=== PATIENT | male | born 1945 | race Caucasian/White ===

== ENCOUNTER 2017-11-21 09:25 | Emergency (ER) | payer MEDICARE ==
[~2017-11-21 09:25] MED LIST: AMLO10TA8 PO; ASPI300S PR; FOLI5CAP; LISI30TA44 PO; MAGN250T9 PO; METO100T PO; PLAV75TA PO; PROT40TA PO; VARE1 PO
[2017-11-21 09:26] VITALS: BP 123/98; PULSE 89; RESP 14; TEMP 98.4; O2SAT 99
--- NOTE | 2017-11-21 09:54 | PD ---
HPI Chief Complaint: Edema Time Seen by Provider: 09:43 Travel History International Travel<30 days: No Contact w/Intl Traveler<30days: No Traveled to known affect area: No History of Present Illness HPI 72-year-old male presents to the emergency Department with complaint of left calf pain that started yesterday. Reports feeling pins and needles in his left lower leg. Has a stent in his left leg secondary to "bad circulation." He takes Plavix. Denies history of DVT/PE. Denies chest pain, shortness of breath , fevers, vomiting. Has not taken any medications or tried any treatments to alleviate his symptoms. Rates pain 2/10. Described as cramping. Worse in the morning when he first gets out of bed. Dr. Bravo is primary care provider. He doesn't have a parachute rigger. History of NV, hypertension, COPD, lung cancer. No known allergies. Has no other medical complaints. No other modifying factors or associated signs and symptoms. PFSH Past Medical History Arthritis: No Asthma: No Blood Disorders: No Heart Rhythm Problems: No Cancer: No Cardiac Catheterization: Yes Cardiovascular Problems: Yes (HTN, stents) High Cholesterol: Yes Chemotherapy: No Chest Pain: No Congestive Heart Failure: No COPD: No Cerebrovascular Accident: No Diabetes: No Diminished Hearing: No Endocrine: No GERD: No Genitourinary: No Hepatitis: No Hiatal Hernia: No Hypertension: Yes Immune Disorder: No Kidney Stones: No Musculoskeletal: No Neurologic: No Psychiatric: No Reproductive: No Respiratory: No Migraines: No Radiation Therapy: No Renal Failure: No Seizures: No Sickle Cell Disease: No Sleep Apnea: No Thyroid Disease: No Ulcer: No Past Surgical History Abdominal Surgery: Yes (INGUINAL HERNIA) AICD: No Appendectomy: Yes Arteriovenous Shunt: No Cardiac Surgery: Yes (CARDIAC STENTING) Coronary Artery Bypass Graft: No Ear Surgery: No Endocrine Surgery: No Eye Surgery: No Genitourinary Surgery: No Gynecologic Surgery: No Insulin Pump: No Joint Replacement: No Oral Surgery: No Pacemaker: No Thoracic Surgery: No Other Surgery: Yes (L LOWER LOBECTOMY) Social History Alcohol Use: Yes Tobacco Use: Yes (<1/2 PPD) Substance Use: No Allergies-Medications (Allergen,Severity, Reaction): Coded Allergies: naproxen (Unverified Allergy, Severe, LOW BP, HIVES, 06/11/17) Reported Meds & Prescriptions Reported Meds & Active Scripts Active Reported Metoprolol Tartrate 100 Mg Tab 100 Mg PO BID Omeprazole 40 Mg Cap 40 Mg PO DAILY Clopidogrel (Clopidogrel Bisulfate) 75 Mg Tab 75 Mg PO DAILY Lisinopril 30 Mg Tab 30 Mg PO DAILY Amlodipine-Atorvastatin 10-10 Mg Tab 1 Tab PO DAILY Review of Systems Except as stated in HPI: all other systems reviewed are Neg Physical Exam Narrative GENERAL: Well-nourished, well-developed male patient, in no acute distress SKIN: Warm and dry. HEAD: Atraumatic. Normocephalic. EYES: Pupils equal and round. No scleral icterus. No injection or drainage. ENT: Mucosa pink and moist. Airway patent. NECK: Trachea midline. CARDIOVASCULAR: Regular rate and rhythm. No murmur appreciated. RESPIRATORY: No accessory muscle use. Clear and equal to auscultation bilaterally. GASTROINTESTINAL: Flat. MUSCULOSKELETAL: Left lower extremity supple and non-tense with 1+ pedal pulse and sensory intact without erythema. Left lower leg appears edematous when compared to the right; nonpitting edema. Reproducible tenderness on palpation to the left posterior upper calf. No obvious deformities. No clubbing. No cyanosis. NEUROLOGICAL: Awake and alert. Oriented 3. No obvious cranial nerve deficits. Motor grossly within normal limits. Normal speech. PSYCHIATRIC: Appropriate mood and affect; insight and judgment normal. Data Data Last Documented VS Vital Signs Date Time Temp Pulse Resp B/P (MAP) Pulse Ox O2 Delivery O2 Flow Rate FiO2 11/21/17 09:49 Room Air 11/21/17 09:26 98.4 89 14 123/98 (106) 99 Orders Orders Us Leg Venous Doppler (11/21/17 ) Ed Discharge Order (11/21/17 11:32) [facility] Medical Decision Making Medical Screen Exam Complete: Yes Emergency Medical Condition: Yes Medical Record Reviewed: Yes Differential Diagnosis DVT, superficial vein thrombosis, leg cramp Narrative Course 72-year-old male with left calf pain and left lower leg edema. He has history of cardiac stents and a left leg stent. He is on Plavix. Denies history of DVT /PE. Denies chest pain, shortness of breath. 1129: Left leg ultrasound concludes No evidence of left lower extremity DVT. Dr. Herzog evaluated the patient and agrees with discharge. Instructed to followup with vascular surgeon. Instructed patient to follow up with primary care provider. Patient verbalizes understanding and agreement with treatment plan. Patient is medically cleared and stable for discharge. Discussed reasons to return to the emergency department. Patient agrees with treatment plan. The patients vital signs are stable and the patient is stable for outpatient follow-up and treatment. Patient discharged home, stable and in no acute distress. Diagnosis Primary Impression: Pain of left calf Referrals: Primary Care Physician Vascular Surgeon Patient Instructions: General Instructions, Leg Pain (ED) Additional Instructions: Tylenol as instructed and as needed for pain Elevate effected extremity Follow-up with primary care provider Follow-up with Return to the emergency department with symptoms Med/Other Pt SpecificInfo: No Change to Meds, No Meds Exist/No RX given Disposition: DISCHARGE HOME Condition: Stable Silvia Ace Nov 21, 2017 09:54
[2017-11-21] MEDS ORDERED: CLOP75TA PO (10:01)
[2017-11-21] MEDS ORDERED: AMLO1TAB34 PO (10:01)
[2017-11-21] MEDS ORDERED: LISI30TA4 PO (10:01)
[2017-11-21] MEDS ORDERED: OMEP40CA2 PO (10:01)
[2017-11-21] MEDS ORDERED: METO100T PO (10:01)
--- NOTE | 2017-11-21 11:22 | RADRPT ---
EXAM DATE/TIME: 11/21/2017 10:30 [place] COMPARISON: No previous studies available for comparison. INDICATIONS : Thrombosis. MEDICAL HISTORY : Hypercholesterolemia. Hypertension. CAD. GERD. MRSA. SURGICAL HISTORY : Appendectomy. Cardiac stents. Cardiac cath. Left lower lobectomy. ENCOUNTER: Initial ACUITY: 1 day PAIN SCORE: 0/10 LOCATION: Left TECHNIQUE: Venous ultrasound of the leg was performed from the inguinal ligament to the proximal calf. Real-neftali e, color Doppler and spectral tracing, compression and augmentation techniques were used. FINDINGS: There is normal compressibility of the deep venous system from the inguinal region to the proximal ca lf. No echogenic clot is seen in the lumen of the common femoral, femoral, popliteal, and posterior tibial veins. There is a normal response of the venous system to proximal and distal augmentation an d respiration. CONCLUSION: No evidence of left lower extremity DVT. Devin Richardson MD on November 21, 2017 at 11:19 Board Certified Radiologist. This report was verified electronically.
--- NOTE | 2017-11-21 11:39 | PD ---
Data Data Last Documented VS Vital Signs Date Time Temp Pulse Resp B/P (MAP) Pulse Ox O2 Delivery O2 Flow Rate FiO2 11/21/17 09:49 Room Air 11/21/17 09:26 98.4 89 14 123/98 (106) 99 Orders Orders Us Leg Venous Doppler (11/21/17 ) Ed Discharge Order (11/21/17 11:32) MDM Supervised Visit with VALENTINA: Yes Narrative Course The history, exam, and medical decision-making in the associated midlevel provider note were completed with my assistance. I reviewed and agree with the findings presented. I attest that I had a [id number] encounter with the patient on the same day, and personally performed and documented my assessment and findings in the medical record. *My assessment and Findings: This is a 72-year-old male who presents to the emergency department with pain and swelling in his left calf. He has a history of peripheral arterial disease and has had stents placed in that extremity in the past but today he has a 1+ pulse in the leg and has no evidence of acute limb ischemia, but evidence of chronic peripheral arterial disease which may be worsening. Ultrasound was negative for DVT. I think patient should follow up routinely with his vascular surgeon Dr. Thacker. I think he's safe for discharge. Diagnosis Primary Impression: Pain of left calf Referrals: Primary Care Physician Patient Instructions: General Instructions, Leg Pain (ED) Departure Forms: Tests/Procedures Additional Instruction: Tylenol as instructed and as needed for pain Elevate effected extremity Follow-up with primary care provider Follow-up with Return to the emergency department with symptoms Disposition: 01 DISCHARGE HOME Condition: Stable Latonia Herzog MD Nov 21, 2017 11:39
== END 2017-11-21 11:57 | disposition home or self-care (01) ==
LOC: NEPD 09:25
DX: M79.662 Pain in left lower leg (principal); E78.00 Pure hypercholesterolemia, unspecified; I10 Essential (primary) hypertension; I25.10 Atherosclerotic heart disease of native coronary artery without angina pectoris; I25.2 Old myocardial infarction; J44.9 Chronic obstructive pulmonary disease, unspecified; Z95.5 Presence of coronary angioplasty implant and graft; Z79.02 Long term (current) use of antithrombotics/antiplatelets
CPT/HCPCS: 93971; 99284

== ENCOUNTER 2018-07-02 11:13 | Inpatient (IN) ==
[~2018-07-02 11:13] MED LIST changes: -AMLO10TA8 PO; -ASPI300S PR; -FOLI5CAP; -LISI30TA44 PO; -MAGN250T9 PO; -METO100T PO; +Metoprolol Tartrate 25 MG Tablet PO SCH; -PLAV75TA PO; -PROT40TA PO; -VARE1 PO
[2018-07-02] MEDS ORDERED: Heparin 10,000 UNITS/10 ML Vial (for IV use) IV.PUSH ONE (11:24)
[2018-07-02] MEDS ORDERED: Sod Chloride 0.9% Inj 1,000 ML IV.SIG SCH (11:30)
--- NOTE | 2018-07-02 11:33 | ED ---
HPI General Chief complaint: STEMI Alert Stated complaint: cardiac complaint Time Seen by Provider: 07/02/18 11:30 History of Present Illness HPI narrative: patient is a 73 year old male history of myocardial infarction 2007 with stents presents to ER for evaluation of CP since last night. States has chronic LUQ abdominal pain from "spine problem" but last night started having sharp severe upper chest pain with SOB and dizziness. Continues to smoke. Has not had cardiology follow up since 2007. Symptoms moderate, started this morning, associated s/s and context as above. Related Data Home Medications Medication Instructions Recorded Confirmed Statin 07/02/18 amlodipine 10 mg PO DAILY 07/02/18 aspirin 500 mg PO BID 07/02/18 07/02/18 clopidogrel [Plavix] 75 mg PO DAILY 07/02/18 lisinopril 20 mg PO DAILY 07/02/18 metoprolol tartrate 50 mg PO BID 07/02/18 Allergies Allergy/AdvReac Type Severity Reaction Status Date / Time naproxen Allergy Severe LOW BP, Unverified 06/11/17 15:18 HIVES Review of Systems ROS: all other systems reviewed are negative [facility] Surgical History Surgical History H/O heart artery stent (Acute) H/O hernia repair (Acute) History of lobectomy of lung (Acute) Hx of cardiac cath (Acute) Social History Social History Substance History: No History of Abuse Smoking Status: Heavy tobacco smoker Tobacco Type: Cigarettes How Often Do You Have a Drink Containing Alcohol: Never Recent Travel in [facility] within the Last 8 Weeks: No Recent Out of Country Travel within the Last 8 Weeks: No Exam Narrative Exam Narrative: GENERAL: WD/WN in nad. SKIN: Focused skin assessment warm/dry. HEAD: Atraumatic. Normocephalic. EYES: Pupils equal and round. No scleral icterus. No injection or drainage. ENT: No nasal bleeding or discharge. Mucous membranes pink and moist. NECK: Trachea midline. No JVD. CARDIOVASCULAR: Regular rate and rhythm. No murmur appreciated. NO MGR, 2+ bilaterally equal pulses in all four extremities. RESPIRATORY: No accessory muscle use. Clear to auscultation. Breath sounds equal bilaterally. GASTROINTESTINAL: Abdomen soft, non-tender, nondistended. Hepatic and splenic margins not palpable. MUSCULOSKELETAL: No obvious deformities. No clubbing. No cyanosis. No edema. NEUROLOGICAL: Awake and alert. No obvious cranial nerve deficits. Motor grossly within normal limits. Normal speech. PSYCHIATRIC: Appropriate mood and affect; insight and judgment normal. Course Initial Documented Vital Signs Pulse Oximetry 100 07/02/18 11:22 Last Documented Vital Signs Temperature 98.7 F 07/02/18 11:24 Pulse Rate 63 07/02/18 11:40 Respiratory Rate 16 07/02/18 11:40 Blood Pressure 154/78 H 07/02/18 11:24 Pulse Oximetry 100 07/02/18 11:40 Critical Care Time Critical Care Time: Yes Total Critical Care Time: 35 Attestation: Aggregate critical care time was 35 minutes. Time to perform other separately billable procedures was not included in the critical care time. My time did not include minutes spent treating any other patients simultaneously or on activities that did not directly contribute to the patient's treatment. The services I provided to this patient were to treat and/or prevent clinically significant deterioration that could result in: , disability, organ failure I provided critical care services requiring my management, as noted below: Chart data review, documentation time, medication orders and management, vital sign assessments/reviewing monitor data, ordering and reviewing lab tests, ordering and interpreting/reviewing x-rays and diagnostic studies, care of the patient and discussion of the patient with the admitting physicians. Medical Decision Making MDM Narrative Medical decision making narrative: Patient roomed in the ER, patient EKG shows ST elevation in V1-2, T wave inversions in V4-v6. He has had chronic LUQ abdominal pain and now left sided chest pain. Patient STEMI alert (1115), discussed with Dr. Zepeda ([id number]) who accepts. Patient NOT given aspirin, states he has allergy. He is given nitroglycerin and the CP is improving but LUQ abdominal pain worsening. Patient had US of abdomen cursory at bedside by me, no evidence of free fluid in the abdomen and aorta is grossly normal in caliber. Heparin 5000u IV given x1. Patient to laboratory worker by EMS transfer at 1151a. Medical Screen Exam Complete: Yes Emergency Medical Condition: Yes Lab Data Result diagrams: 07/02/18 11:20 07/02/18 11:20 Lab Results 07/02/18 07/02/18 07/02/18 Range/Units 11:20 11:20 11:20 CBC w Diff Auto diff final WBC 8.6 (4.0-11.0) th/mm3 RBC 5.09 (4.50-5.90) mil/mm3 Hgb 15.1 (13.0-17.0) gm/dL Hct 44.0 (39.0-51.0) % MCV 86.6 (80.0-100.0) fL MCH 29.8 (27.0-34.0) pg MCHC 34.4 (32.0-36.0) % RDW 13.8 (11.6-17.2) % Plt Count 201 (150-450) th/mm3 MPV 10.9 (7.0-11.0) fL Neut % (Auto) 77.0 H (16.0-70.0) % Lymph % (Auto) 15.5 (9.0-44.0) % Sandoval % (Auto) 5.3 (0.0-8.0) % Eos % (Auto) 1.2 (0.0-4.0) % Baso % (Auto) 1.0 (0.0-2.0) % Neut # (Auto) 6.6 (1.8-7.7) th/mm3 Lymph # (Auto) 1.3 (1.0-4.8) th/mm3 Sandoval # (Auto) 0.5 (0.0-0.9) th/mm3 Eos # (Auto) 0.1 (0.0-0.4) th/mm3 Baso # (Auto) 0.1 (0.0-0.2) th/mm3 WBC Differential . Differential Comment . PT 10.8 (9.8-11.6) sec INR 1.1 Ratio APTT 26.0 (24.3-30.1) sec Sodium 140 (136-145) meq/L Potassium 3.7 (3.5-5.1) meq/L Chloride 105 (98-107) meq/L Carbon Dioxide 25.0 (21.0-32.0) meq/L Anion Gap 10 (5-15) meq/L BUN 16 (7-18) mg/dL Creatinine 1.30 (0.60-1.30) mg/dL Estimated GFR 54 L (>89) mL/min Random Glucose 137 H (74-106) mg/dL Calcium 9.0 (8.5-10.1) mg/dL Magnesium 1.9 (1.5-2.5) mg/dL Total Creatine Kinase 75 (39-308) U/L Troponin I 0.02 (0.02-0.05) ng/mL B-Natriuretic Peptide (0-100) pg/mL 07/02/18 Range/Units 11:20 CBC w Diff WBC (4.0-11.0) th/mm3 RBC (4.50-5.90) mil/mm3 Hgb (13.0-17.0) gm/dL Hct (39.0-51.0) % MCV (80.0-100.0) fL MCH (27.0-34.0) pg MCHC (32.0-36.0) % RDW (11.6-17.2) % Plt Count (150-450) th/mm3 MPV (7.0-11.0) fL Neut % (Auto) (16.0-70.0) % Lymph % (Auto) (9.0-44.0) % Sandoval % (Auto) (0.0-8.0) % Eos % (Auto) (0.0-4.0) % Baso % (Auto) (0.0-2.0) % Neut # (Auto) (1.8-7.7) th/mm3 Lymph # (Auto) (1.0-4.8) th/mm3 Sandoval # (Auto) (0.0-0.9) th/mm3 Eos # (Auto) (0.0-0.4) th/mm3 Baso # (Auto) (0.0-0.2) th/mm3 WBC Differential Differential Comment PT (9.8-11.6) sec INR Ratio APTT (24.3-30.1) sec Sodium (136-145) meq/L Potassium (3.5-5.1) meq/L Chloride (98-107) meq/L Carbon Dioxide (21.0-32.0) meq/L Anion Gap (5-15) meq/L BUN (7-18) mg/dL Creatinine (0.60-1.30) mg/dL Estimated GFR (>89) mL/min Random Glucose (74-106) mg/dL Calcium (8.5-10.1) mg/dL Magnesium (1.5-2.5) mg/dL Total Creatine Kinase (39-308) U/L Troponin I (0.02-0.05) ng/mL B-Natriuretic Peptide 61 (0-100) pg/mL Imaging Data Radiologist's impression: Chest X-Ray 07/02/18 11:22 CONCLUSION: No acute cardiopulmonary disease. Discharge Plan Discharge Disposition Patient Disposition: 02 Transfer To [facility] Discharge Details Diagnosis: ST elevation (STEMI) myocardial infarction Physicians Team ED Provider: Golden Kim Primary Care Provider: UNKNOWN, Rxs /Orders / Referrals /Forms Prescriptions: No Action lisinopril 20 mg Tablet 20 mg PO DAILY RF: 0 clopidogrel [Plavix] 75 mg Tablet 75 mg PO DAILY RF: 0 amlodipine 10 mg Tablet 10 mg PO DAILY RF: 0 metoprolol tartrate 50 mg Tablet 50 mg PO BID RF: 0 Statin RF: 0 aspirin 500 mg Tablet 500 mg PO BID RF: 0 Discharge Instructions Patient Printed Instructions: Chest Pain (ED) Status ED Status: With Doctor
[2018-07-02 11:37] LABS: Baso # (Auto) 0.1 th/mm3 (0.0-0.2); Eos # (Auto) 0.1 th/mm3 (0.0-0.4); Eos % (Auto) 1.2 % (0.0-4.0); Hemoglobin 15.1 gm/dL (13.0-17.0); Lymph # (Auto) 1.3 th/mm3 (1.0-4.8); Lymph % (Auto) 15.5 % (9.0-44.0); Mean Corpuscular HGB Conc 34.4 % (32.0-36.0); Mean Corpuscular Hemoglobin 29.8 pg (27.0-34.0); Mean Corpuscular Volume 86.6 fL (80.0-100.0); Mean Platelet Volume 10.9 fL (7.0-11.0); Mono # (Auto) 0.5 th/mm3 (0.0-0.9); Mono % (Auto) 5.3 % (0.0-8.0); Neut # (Auto) 6.6 th/mm3 (1.8-7.7); Platelet Count 201 th/mm3 (150-450); Red Blood Count 5.09 mil/mm3 (4.50-5.90); Red Cell Distribution Width 13.8 % (11.6-17.2); White Blood Count 8.6 th/mm3 (4.0-11.0)
--- NOTE | 2018-07-02 11:39 | XR ---
EXAM DATE: 07/02/2018 11:31 AM EDT AGE/SEX: 73 years / Male INDICATIONS: Stemi Alert. Chest pain CLINICAL DATA: This is the patient's initial encounter. Patient reports that signs and symptoms have been present for 1 day and indicates a pain score of 5/10. MEDICAL/SURGICAL HISTORY: Hypertension. Gastroesophageal reflux disease. CAD Appendectomy. Ca rdiac stent. Left lobectomy COMPARISON: [facility] [place], CHEST SINGLE AP, 03/05/2015. . FINDINGS: A single AP view of the chest demonstrates the lungs to be symmetrically aerated without evidence of mass, infiltrate or effusion. The heart is normal in size. No pulmonary vascular engorgement. The aor ta is tortuous. A scoliotic thoracic spine.. CONCLUSION: No acute cardiopulmonary disease. Electronically signed by: Jerry Christianson MD 07/02/2018 11:38 AM EDT
[2018-07-02 11:49] LABS: Magnesium 1.9 mg/dL (1.5-2.5)
[2018-07-02 11:50] LABS: INR 1.1 Ratio; Prothrombin Time 10.8 sec (9.8-11.6)
[2018-07-02 11:57] LABS: Troponin I 0.02 ng/mL (0.02-0.05)
[2018-07-02 12:08] LABS: Potassium 3.7 meq/L (3.5-5.1)
[2018-07-02] MEDS ORDERED: fentaNYL Citrate Inj 100 MCG/2 ML Ampul ONE (12:26)
--- NOTE | 2018-07-02 13:20 | MR ---
cc: Agustin Zepeda MD DATE: 07/02/2018 INDICATIONS FOR PROCEDURE: Acute coronary syndrome, coronary artery disease, multiple cardiac risk factors. DETAILS OF PROCEDURE: The patient was brought to the cardiac catheterization laboratory, prepped and draped the usual sterile fashion, 10 mL of 1% lidocaine was used for local anesthetic to the right common femoral artery. A 4-Polish sheath was placed in right common femoral artery. Note, the right common iliac, external iliac, common femoral system was heavily calcified fluoroscopically. I needed to use a 4-Polish JR4 diagnostic catheter to steer the 0.035 J-tipped wire into the common iliac artery and into the distal aorta. All further catheter exchanges were done over the wire, 4-Polish JR4 and JL5 catheters were used to perform left and right coronary angiography, left ventriculography. FINDINGS: LV pressure is 115/6-8, EF 65%. The right coronary artery is large and dominant, has a slight wells's crook in the proximal segment, very tortuous in the proximal mid segment. The proximal segment has a 50% stenosis. Proximal mid segment beyond the wells's crook has a 40% stenosis. There is a long, 90%, stenosis in the mid segment extending down into the distal segment. The right PDA has a long ostial proximal 60% stenosis. Reference vessel diameter of 3.25 mm, extends out to the apex. Right posterolateral artery has no significant disease angiographically, has a bifurcation in the mid to distal segment. Left main coronary artery is heavily fibrocalcific fluoroscopically, mild tapering in the distal segment up to 20% angiographically. LAD is heavily calcified in the proximal mid segment fluoroscopically. There is an ostial proximal 75-80% stenosis. The vessel was occluded after the first diagonal artery with [id number] bridging collaterals to the mid to distal LAD. The LAD is nontransapical. Reference vessel diameter in the mid to distal segment 2.25-2.5 mm tapering to about 2 mm to 1.5 mm in the very distal segment. First diagonal artery is a medium to large size vessel, reference vessel diameter in the proximal segment 2.75 mm, long 95% proximal stenosis. Left circumflex vessel has moderate diffuse disease in the its proximal mid segment, up to 60% angiographically. The first obtuse marginal vessel has a proximal 75-80% stenosis. Reference vessel diameter 3.5 mm. There may be an actual bifurcation of the proximal segment with a stump at the more lateral branch. The more medial branch is a 3.0 mm reference vessel diameter vessel, very tortuous, with a 60% mid stenosis. The vessel approached the apex. The remainder of the AV groove left circumflex vessel is a small vessel, reference vessel diameter 2.25 mm, decreasing to about 1 mm in the mid to distal segment with severe diffuse disease up to 95% supplies a small distal posterolateral artery, which is 1 mm in diameter. CONCLUSION: 1. Severe 3-vessel coronary artery disease in a right dominant system as detailed above. Preserved left ventricular systolic function, ejection fraction 75%. 2. I have strongly advised the patient to stop smoking. 3. I have reviewed the films and discussed the case with Dr. Lizy Read, who agrees that the patient needs CABG. We will get preop carotid ultrasound, 2-D echo, treat lipids, NCEP guidelines. Start JACKI inhibitor, beta blockers as clinically and hemodynamically tolerated. Continue aspirin 81 mg daily. MD PHONG Farias/lesley , 12:53 PM , 01:02 PM
--- NOTE | 2018-07-02 13:26 | MB ---
cc: Agustin Zepeda MD DATE: 07/02/2018 HISTORY OF PRESENT ILLNESS: Karie is a very pleasant 73-year-old gentleman with history of coronary artery disease status post NE and stent in 2007. He does smoke. Developed chest pain yesterday, presented to the [place] ER today. He was attended by Dr. Kim. Dr. Kim reviewed the patient's EKG and called a STEMI alert. 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 At the time of arrival to incinerator plant laborer, the patient had no chest pain. He was treated with aspirin and heparin in the ER at [place]. Otherwise, denies any fever, chills, cough, PND, orthopnea, syncope or dizziness. PAST MEDICAL HISTORY: As per history of present illness. He has a "spine problem." PAST SURGICAL HISTORY: Status post hernia repair, history of lobectomy of the lung. SOCIAL HISTORY: He admits to heavy tobacco use. Denies alcohol use. ALLERGIES: NAPROXEN. MEDICATIONS: He did receive aspirin and heparin in [place] ER. PHYSICAL EXAMINATION: VITAL SIGNS: Blood pressure 154/78, pulse 68, respiratory rate 18, temperature 98.7 sat 100% on 2 liters nasal cannula. GENERAL: He is alert and oriented x3; in no acute distress. NECK: Supple. No JVD. No bruit. CARDIOVASCULAR: S1, S2; no murmurs, rubs or gallops; LUNGS: Clear to auscultation bilaterally. ABDOMEN: Soft, nontender, nondistended with positive bowel sounds. EXTREMITIES: No clubbing, cyanosis, or edema. LABORATORY DATA: White count is 8.6, hemoglobin 15.1, hematocrit 44.0, platelet count is 201. INR is 1.1. Sodium 140, potassium 3.7, chloride 105, bicarbonate 25, BUN 16, creatinine 1.30, glucose 137. BNP 61. Troponin 0.02. CK 75. INR is 1.1. IMAGING: Chest x-ray: No acute cardiopulmonary disease. DIAGNOSTIC DATA: EKG shows normal sinus rhythm at 65 beats per minute with anteroseptal Q-waves, T-wave inversion slightly symmetric V4, V5, V6, also lead I and aVL. DIAGNOSES: 1. Unstable angina. 2. Acute coronary syndrome. 3. Coronary artery disease. 4. Tobacco abuse. 5. Hyperglycemia. DISCUSSION: A STEMI alert has already been called. On my review, it appears that the patient has unstable angina. However, he was on the table and given his multiple risk factors and high pretest probability for significant coronary artery disease, I do think is medically necessary to proceed. In addition, he has [place] Cardi[employer] Class IV angina; therefore I will proceed with left heart catheterization. Further recommendations based on the details of his left heart catheterization. I have strongly advised the patient to stop smoking. We will also need to continue him on aspirin 81 mg daily, treat lipids by NCEP guidelines, treat him with beta blockers and JACKI inhibitors as clinically and hemodynamically tolerated. MD PHONG Farias/chapis , 12:59 PM , 01:07 PM
[2018-07-02] MEDS ORDERED: Insulin Regular (For Infusion) 100 UNIT in Sodium Chlor 0.9% Inj 99 ML IV.CONT PRN ×2 (13:52→14:27)
[2018-07-02] MEDS ORDERED: Dextrose 50% in Water 50 ML Vial IV.PUSH PRN ×2 (13:52→14:27)
[2018-07-02] MEDS ORDERED: Chlorhexidine 4% Topical 120 APPLIC/120 ML Bottle TOPICAL SCH (14:00)
[2018-07-02] MEDS ORDERED: ceFAZolin Inj 2,000 MG in Sodium Chlor 0.9% Inj 80 ML IV.SIG SCH ×2 (14:00→15:00)
[2018-07-02] MEDS ORDERED: Sodium Chlor 0.9% Inj 77.5 ML, Papaverine Inj 60 MG, Nitroglycerin Inj 100 MCG, dilTIAZ... IRRIGATION SCH ×6 (14:00→14:15)
[2018-07-02] MEDS ORDERED: Sodium Chloride 0.9% Irr Bot 500 ML, ceFAZolin Inj 500 MG IRRIGATION SCH ×2 (14:00)
[2018-07-02] MEDS ORDERED: Metoprolol Tartrate 25 MG Tablet PO SCH (14:15)
[2018-07-02 15:22] LABS: Baso % (Auto) 0.6 % (0.0-2.0); Eos # (Auto) 0.1 th/mm3 (0.0-0.4); Eos % (Auto) 1.6 % (0.0-4.0); Hematocrit 43.9 % (39.0-51.0); Hemoglobin 14.8 gm/dL (13.0-17.0); Lymph # (Auto) 1.5 th/mm3 (1.0-4.8); Lymph % (Auto) 17.7 % (9.0-44.0); Mean Corpuscular HGB Conc 33.7 % (32.0-36.0); Mean Corpuscular Hemoglobin 29.5 pg (27.0-34.0); Mean Corpuscular Volume 87.5 fL (80.0-100.0); Mean Platelet Volume 10.1 fL (7.0-11.0); Mono # (Auto) 0.6 th/mm3 (0.0-0.9); Mono % (Auto) 7.1 % (0.0-8.0); Neut # (Auto) 6.2 th/mm3 (1.8-7.7); Platelet Count 158 th/mm3 (150-450); Red Blood Count 5.02 mil/mm3 (4.50-5.90); White Blood Count 8.4 th/mm3 (4.0-11.0)
[2018-07-02 15:30] LABS: Activated Partial Thrombo Time 27.5 sec (24.3-30.1); INR 1.1 Ratio; Prothrombin Time 10.9 sec (9.8-11.6)
[2018-07-02 15:41] LABS: Alanine Aminotransferase 13 U/L (12-78); Albumin 3.5 g/dL (3.4-5.0); Anion Gap 9 meq/L (5-15); Aspartate Aminotransferase 9 U/L (15-37); Blood Urea Nitrogen 15 mg/dL (7-18); Calcium 8.5 mg/dL (8.5-10.1); Carbon Dioxide 27.4 meq/L (21.0-32.0); Chloride 108 meq/L (98-107); Glomerular Filtration Rate 57 mL/min (>89); Glucose,Random 92 mg/dL (74-106); Potassium 3.7 meq/L (3.5-5.1); Sodium 144 meq/L (136-145)
[2018-07-02 15:43] LABS: Alkaline Phosphatase 78 U/L (45-117); Total Protein 6.4 g/dL (6.4-8.2)
--- NOTE | 2018-07-02 16:01 | P.PNCV ---
- Note Subjective/Hospital Course: Risk Model and Variables - STS Adult Cardiac Surgery Database Version 2.81 RISK SCORES About the STS Risk Calculator Procedure: CAB Only Risk of Mortality: 3.084% Morbidity or Mortality: 20.224% Long Length of Stay: 8.679% Short Length of Stay: 34.019% Permanent Stroke: 1.097% Prolonged Ventilation: 13.87% DSW Infection: 0.518% Renal Failure: 5.772% Reoperation: 7.443% Objective: Vital Signs - 24 hr 07/02/18 11:22 07/02/18 11:24 07/02/18 11:40 Temperature 98.7 F Pulse Rate 68 63 Respiratory Rate 18 16 Blood Pressure 154/78 H Pulse Oximetry 100 100 100 Labs: Laboratory Results - last 12 hr 07/02/18 07/02/18 07/02/18 11:20 11:20 11:20 CBC w Diff Auto diff final WBC 8.6 RBC 5.09 Hgb 15.1 Hct 44.0 MCV 86.6 MCH 29.8 MCHC 34.4 RDW 13.8 Plt Count 201 MPV 10.9 Neut % (Auto) 77.0 H Lymph % (Auto) 15.5 Keith % (Auto) 5.3 Eos % (Auto) 1.2 Baso % (Auto) 1.0 Neut # (Auto) 6.6 Lymph # (Auto) 1.3 Keith # (Auto) 0.5 Eos # (Auto) 0.1 Baso # (Auto) 0.1 WBC Differential . Differential Comment . PT 10.8 INR 1.1 APTT 26.0 Sodium 140 Potassium 3.7 Chloride 105 Carbon Dioxide 25.0 Anion Gap 10 BUN 16 Creatinine 1.30 Estimated GFR 54 L Random Glucose 137 H Calcium 9.0 Magnesium 1.9 Total Bilirubin AST ALT Alkaline Phosphatase Total Creatine Kinase 75 Troponin I 0.02 B-Natriuretic Peptide Total Protein Albumin 07/02/18 07/02/18 07/02/18 11:20 15:03 15:03 CBC w Diff WBC 8.4 RBC 5.02 Hgb 14.8 Hct 43.9 MCV 87.5 MCH 29.5 MCHC 33.7 RDW 14.0 Plt Count 158 MPV 10.1 Neut % (Auto) 73.0 H Lymph % (Auto) 17.7 Keith % (Auto) 7.1 Eos % (Auto) 1.6 Baso % (Auto) 0.6 Neut # (Auto) 6.2 Lymph # (Auto) 1.5 Keith # (Auto) 0.6 Eos # (Auto) 0.1 Baso # (Auto) 0.0 WBC Differential . Differential Comment Auto diff final PT 10.9 INR 1.1 APTT 27.5 Sodium Potassium Chloride Carbon Dioxide Anion Gap BUN Creatinine Estimated GFR Random Glucose Calcium Magnesium Total Bilirubin AST ALT Alkaline Phosphatase Total Creatine Kinase Troponin I B-Natriuretic Peptide 61 Total Protein Albumin 07/02/18 15:03 CBC w Diff WBC RBC Hgb Hct MCV MCH MCHC RDW Plt Count MPV Neut % (Auto) Lymph % (Auto) Keith % (Auto) Eos % (Auto) Baso % (Auto) Neut # (Auto) Lymph # (Auto) Keith # (Auto) Eos # (Auto) Baso # (Auto) WBC Differential Differential Comment PT INR APTT Sodium 144 Potassium 3.7 Chloride 108 H Carbon Dioxide 27.4 Anion Gap 9 BUN 15 Creatinine 1.24 Estimated GFR 57 L Random Glucose 92 Calcium 8.5 Magnesium Total Bilirubin 0.5 AST 9 L ALT 13 Alkaline Phosphatase 78 Total Creatine Kinase Troponin I B-Natriuretic Peptide Total Protein 6.4 Albumin 3.5 Result Diagrams: 07/02/18 15:03 07/02/18 15:03
--- NOTE | 2018-07-02 16:09 | P.CON ---
History of Present Illness Service: Cardiothoracic surgery Consult date: 07/02/18 Reason for Consult: Coronary artery disease Primary Care Provider: UNKNOWN Chief Complaint: Flank pain History of Present Illness: 73-year-old gentleman with a known history of coronary artery disease status post previous acute myocardial infarction in 2007 at which time he underwent PCI with stenting, who now presents with progressive symptoms of left upper quadrant abdominal pain with associated substernal chest pressure. Patient was seen in the emergency department and evaluated with further workup including EKG and enzymes and subsequently underwent a coronary angiogram today which revealed significant three-vessel coronary artery disease with heavily calcified coronary vessels. I am now be considered for surgical vasculature therapy. At the present time he remains pain-free, hemodynamically stable, with no evidence of ongoing ischemia. Review of Systems All other systems reviewed negative except as stated in HPI [facility] - History History Provided By: Patient - Medical History Medical History: Medical History (Last Updated 07/02/18 @ 16:04 by Estefanía Bauer MD) Lung cancer (Acute) HTN (hypertension) (Acute) - Surgical History Surgical History: Surgical History (Last Updated 07/02/18 @ 11:23 by Evangelist Gant RN) H/O heart artery stent H/O hernia repair History of lobectomy of lung Hx of cardiac cath - Tobacco History Tobacco Use In Past 30 Days: Yes Smoking Status: Heavy tobacco smoker Tobacco Type: Cigarettes - Alcohol History How Often Do You Have a Drink Containing Alcohol: Never - Substance Use History Substance History: No History of Abuse - Travel History Recent Travel in the [place] Within the Last 8 Weeks: No Recent Travel Out of the Country Within the Last 8 Weeks: No - Immunization History Tetanus Immunization: Unsure Hx Influenza Vaccine This Season: No Medications and Allergies Active Medications: Active Medications Chlorhexidine Gluconate (Hibiclens 4% Topical) 1 applicatio TOPICAL [employer] SHAHRAM Stop: 07/08/18 13:52 Sodium Chloride 77.5 ml/Papaverine HCl 60 mg/Nitroglycerin 100 mcg/Diltiazem HCl 100 mg 0 ml IRRIGATION [employer] SHAHRAM Stop: 07/08/18 13:52 Sodium Chloride 500 ml/ (Cefazolin Sodium 500 mg) 0 ml IRRIGATION [employer] CHECKER [facility] Stop: 07/08/18 13:53 Dextrose (D50w Vial) 50 ml IV.PUSH UNSCH PRN PRN Reason: PER HYPOGLYCEMIA PROTOCOL Sodium Chloride (Ns Inj) 1,000 mls @ 30 mls/hr IV.SIG .Q24H [facility] Stop: 07/03/18 11:29 Last Admin: 07/02/18 11:28 Dose: 30 mls/hr Cefazolin Sodium 2,000 mg/ (Sodium Chloride) 100 mls @ 200 mls/hr IV.SIG [employer] [facility] Stop: 07/08/18 13:53 Insulin Human Regular 100 unit (/ Sodium Chloride) 100 mls @ 3 mls/hr IV.CONT TITRATE PRN; Protocol PRN Reason: See Protocol Metoprolol Tartrate (Lopressor) 12.5 mg PO [employer] [facility] Stop: 07/08/18 13:53 Miscellaneous (Pill Splitter) 1 each OTHER UNSCH PRN PRN Reason: PILL SPLITTING Mupirocin (Bactroban 2% Nasal Oint) 1 applicatio EACH NARE BID [facility] Stop: 07/06/18 13:53 Sodium Chloride (Ns Flush) 2 ml IV.FLUSH PRN PRN PRN Reason: FLUSH AFTER USING IV ACCESS Sodium Chloride (Ns Flush) 2 ml IV.FLUSH BID SHAHRAM Sodium Chloride (Ns Flush) 2 ml IV.FLUSH PRN PRN PRN Reason: FLUSH AFTER USING IV ACCESS Sodium Chloride (Ns Flush) 2 ml IV.FLUSH BID SHAHRAM Sodium Chloride (Ns Flush) 2 ml IV.FLUSH PRN PRN PRN Reason: FLUSH AFTER USING IV ACCESS Allergies Allergy/AdvReac Type Severity Reaction Status Date / Time naproxen Allergy Severe LOW BP, Unverified 06/11/17 15:18 HIVES Home Medications Medication Instructions Recorded Confirmed Type Statin 07/02/18 History amlodipine 10 mg PO DAILY 07/02/18 History aspirin 500 mg PO BID 07/02/18 07/02/18 History clopidogrel [Plavix] 75 mg PO DAILY 07/02/18 History lisinopril 20 mg PO DAILY 07/02/18 History metoprolol tartrate 50 mg PO BID 07/02/18 History Physical Exam Vital signs: Vital Signs 07/02/18 11:22 07/02/18 11:24 07/02/18 11:40 Temperature 98.7 F Pulse Rate 68 63 Respiratory Rate 18 16 Blood Pressure 154/78 H Pulse Oximetry 100 100 100 Intake & Output 07/01/18 07/02/18 07/02/18 18:59 06:59 18:59 Weight 72.688 kg - Constitutional no acute distress - Routine HEENT Exam Head: Present: normocephalic, atraumatic Eye: Present: EOMI, PERRL ENT: Present: mucous membranes moist - Routine Neck Exam Present: supple, full ROM. Absent: JVD, carotid bruit - Routine Respiratory Exam Present: CTA bilaterally. Absent: accessory muscle use - Routine Cardiovascular Exam Present: RRR, S1, S2. Absent: murmur, gallop, rubs - Routine Abdominal Exam Present: soft, normoactive bowel sounds. Absent: tenderness, distended, rebound , guarding - Routine Extremities Exam Present: full ROM, pulses intact. Absent: cyanosis, clubbing, edema - Routine Skin Exam Present: intact. Absent: cyanosis, erythema - Routine Neurological Exam Present: alert, oriented X3, CN II-XII intact - Routine Psychiatric Exam Present: normal affect, normal thought process Assessment and Plan - Assessment (1) CAD (coronary artery disease), [place] coronary artery Code(s): I25.10 - Atherosclerotic heart disease of [place] coronary artery without angina pectoris Status: Acute - Plan The angiographic findings were discussed in detail with the patient and [his] son. Therapeutic options available including CABG was offered. I agree with Dr. Zepeda that [he] will maximally benefit from bypass to [his] [LAD], [OM] and RPDA and possibly RPLB distributions. The risks, complications including but not limited to bleeding, infection, stroke, myocardial injury and , and benefits of the surgical procedure were discussed in details and all questions answered. [He] understands the provided information and agrees to proceed with the planned operation. We will plan on proceeding with the surgical procedure as describe above on at the earliest available date following resolution of the effects of Plavix and his bloodstream. He took the Plavix this morning as his last dose. Will check a Plavix verify test in the a.m. and determine the scheduling of the surgery accordingly. In the meantime, we will obtain PFTs, carotid duplex imaging and lower extremity vein mapping. Thank you for allowing me to participate in the care of this patient. [facility] database was queried. (1) CAD (coronary artery disease), [place] coronary artery Qualifiers: [place] vs. transplanted heart: [place] heart
[2018-07-02 16:19] LABS: Hemoglobin A1c 5.8 % (4.3-6.0)
--- NOTE | 2018-07-02 16:43 | XR ---
EXAM DATE: 07/02/2018 4:31 PM EDT AGE/SEX: 73 years / Male INDICATIONS: Evaluate for pneumonia, pneumothorax, or communicable disease. Pre op cardiac surgery. CLINICAL DATA: This is the patient's initial encounter. Patient reports that signs and symptoms have been present for 1 day and indicates a pain score of 0/10. MEDICAL/SURGICAL HISTORY: Chronic obstructive pulmonary disease. Cardiovascular disease. None. COMPARISON: No prior exams available for comparison. FINDINGS: PA lateral views the chest demonstrate moderate thoracolumbar scoliosis, multiple old healed left-sebastien ed rib fractures. There is decreased volume of the left hemithorax as compared to the right. The lung s appear grossly clear. Size is mildly enlarged. Pulmonary vasculature is normal in caliber. CONCLUSION: No evidence of acute cardiopulmonary disease. Electronically signed by: Jenise Hyde MD 07/02/2018 4:42 PM EDT
--- NOTE | 2018-07-02 17:38 | P.HP ---
[facility]: Dr. Bosch Chief Complaint: Chest pain History of Present Illness: Patient is a very pleasant 73-year-old male with known history of CAD status post stents placed in 2007, history of lung cancer status post left lobectomy, hypertension, hyperlipidemia who presented to the ER complaining of left upper quadrant/left-sided chest pain that started early this morning around 1030. Persistence prompted consult to [facility] and on where on evaluation was noted to have ST elevation in anterior chest leads with T-wave inversion in lateral leads. Patient was promptly seen by cardiology Dr. Zepeda and had cardiac cath done. Shows three-vessel disease with an ejection fraction of 75%. Patient admitted with consultation to the vascular surgery service. Patient denies any fever and no sputum production denies any weight loss, denies any leg swelling denies any orthopnea. Now is chest pain free Patient Still smokes 2 packs per day. states takes meds- cardiac meds/statins/Plavix and states compliance Inpatient Certification: I certify that the inpatient services were ordered in accordance with Medicare regulations governing the order. This includes certification that hospital inpatient services are reasonable and necessary and in the case of services not specified as inpatient-only under 42 CFR 419.22(n), that they are appropriately provided as inpatient services in accordance to with the 2-midnight benchmark under 43 CFR 412.3(e) Plans for Post Hospital Care: Not yet determined Review of Systems All other systems reviewed negative except as stated in HPI [facility] - History History Provided By: Patient - Medical History Medical History: Medical History (Last Updated 07/02/18 @ 17:36 by Sanjuanita Mon MD) HTN (hypertension) Lung cancer - Surgical History Surgical History: Surgical History (Last Updated 07/02/18 @ 17:37 by Sanjuanita Mon MD) H/O umbilical hernia repair H/O heart artery stent H/O hernia repair History of lobectomy of lung Hx of cardiac cath - Social History I have reviewed the patient's Social History: Yes - Tobacco History Tobacco Use In Past 30 Days: Yes Smoking Status: Heavy tobacco smoker (2 packs per day) Tobacco Type: Cigarettes - Alcohol History How Often Do You Have a Drink Containing Alcohol: Never - Substance Use History Substance History: No History of Abuse - Travel History [facility] Travel [facility] the [facility] Within the Last 8 Weeks: No Recent Travel Out of the Country Within the Last 8 Weeks: No - Immunization History Tetanus Immunization: Unsure Hx Influenza Vaccine This Season: No Medications and Allergies Active Medications: Active Medications Atorvastatin Calcium (Lipitor) 40 mg PO [facility] Chlorhexidine Gluconate (Hibiclens 4% Topical) 1 applicatio 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 [facility] Stop: 07/08/18 13:52 Sodium Chloride 77.5 ml/Papaverine HCl 60 mg/Nitroglycerin 100 mcg/Diltiazem HCl 100 mg 0 ml IRRIGATION [employer] OPER[employer] HELPER [facility] Stop: 07/08/18 13:52 Sodium Chloride 500 ml/ (Cefazolin Sodium 500 mg) 0 ml IRRIGATION [employer]PER[employer] HELPER [facility] Stop: 07/08/18 13:53 Dextrose (D50w Vial) 50 ml IV.PUSH UNSCH PRN PRN Reason: PER HYPOGLYCEMIA PROTOCOL Sodium Chloride (Ns Inj) 1,000 mls @ 30 mls/hr IV.SIG .Q24H [facility] Stop: 07/03/18 11:29 Last Admin: 07/02/18 11:28 Dose: 30 mls/hr Cefazolin Sodium 2,000 mg/ (Sodium Chloride) 100 mls @ 200 mls/hr IV.SIG [employer]PER[employer] HELPER [facility] Stop: 07/08/18 13:53 Insulin Human Regular 100 unit (/ Sodium Chloride) 100 mls @ 3 mls/hr IV.CONT TITRATE PRN; Protocol PRN Reason: See Protocol Lisinopril (Prinivil) 20 mg PO DAILY [facility] Metoprolol Tartrate (Lopressor) 12.5 mg PO [employer] [facility] Stop: 07/08/18 13:53 Metoprolol Tartrate (Lopressor) 50 mg PO BID [facility] Miscellaneous (Pill Splitter) 1 each OTHER UNSCH PRN PRN Reason: PILL SPLITTING Mupirocin (Bactroban 2% Nasal Oint) 1 applicatio EACH NARE BID [facility] Stop: 07/06/18 13:53 Sodium Chloride (Ns Flush) 2 ml IV.FLUSH PRN PRN PRN Reason: FLUSH AFTER USING IV ACCESS Sodium Chloride (Ns Flush) 2 ml IV.FLUSH BID SHAHRAM Sodium Chloride (Ns Flush) 2 ml IV.FLUSH PRN PRN PRN Reason: FLUSH AFTER USING IV ACCESS Sodium Chloride (Ns Flush) 2 ml IV.FLUSH BID SHAHRAM Sodium Chloride (Ns Flush) 2 ml IV.FLUSH PRN PRN PRN Reason: FLUSH AFTER USING IV ACCESS Allergies Allergy/AdvReac Type Severity Reaction Status Date / Time naproxen Allergy Severe LOW BP, Verified 07/02/18 19:37 HIVES Home Medications Medication Instructions Recorded Confirmed Type amlodipine 10 mg PO DAILY 07/02/18 07/02/18 History aspirin 500 mg PO BID 07/02/18 07/02/18 History atorvastatin 80 mg PO DAILY 07/02/18 07/02/18 History clopidogrel [Plavix] 75 mg PO DAILY 07/02/18 07/02/18 History lisinopril 20 mg PO BID 07/02/18 07/02/18 History metoprolol tartrate 100 mg PO BID 07/02/18 07/02/18 History Exam Vital signs: Vital Signs 07/02/18 11:22 07/02/18 11:24 07/02/18 11:40 Temperature 98.7 F Pulse Rate 68 63 Respiratory Rate 18 16 Blood Pressure 154/78 H Pulse Oximetry 100 100 100 Intake & Output 07/01/18 07/02/18 07/02/18 18:59 06:59 18:59 Weight 72.688 kg Narrative: Awake alert oriented 3 not in any form of distress HEENT exam anicteric pink palpebral conjunctiva Neck supple no nuchal rigidity no bruit Chest lungs bilateral breath sounds equal no rales no wheezes Heart regular rhythm no murmur Abdomen is soft good bowel sounds Extremities no edema good peripheral pulses Right groin post cath site no hematoma Neurologic exam nonfocal. Results - Labs CBC & Chem 7: 07/02/18 15:03 07/02/18 15:03 Labs: Laboratory Results - last 24 hr 07/02/18 07/02/18 07/02/18 11:20 11:20 11:20 CBC w Diff Auto diff final WBC 8.6 RBC 5.09 Hgb 15.1 Hct 44.0 MCV 86.6 MCH 29.8 MCHC 34.4 RDW 13.8 Plt Count 201 MPV 10.9 Neut % (Auto) 77.0 H Lymph % (Auto) 15.5 [place] % (Auto) 5.3 Eos % (Auto) 1.2 Baso % (Auto) 1.0 Neut # (Auto) 6.6 Lymph # (Auto) 1.3 [place] # (Auto) 0.5 Eos # (Auto) 0.1 Baso # (Auto) 0.1 WBC Differential . Differential Comment . PT 10.8 INR 1.1 APTT 26.0 Sodium 140 Potassium 3.7 Chloride 105 Carbon Dioxide 25.0 Anion Gap 10 BUN 16 Creatinine 1.30 Estimated GFR 54 L Random Glucose 137 H Hemoglobin A1c Calcium 9.0 Magnesium 1.9 Total Bilirubin AST ALT Alkaline Phosphatase Total Creatine Kinase 75 Troponin I 0.02 B-Natriuretic Peptide Total Protein Albumin MTS Gel Crossmatch 07/02/18 07/02/18 07/02/18 11:20 15:03 15:03 CBC w Diff WBC 8.4 RBC 5.02 Hgb 14.8 Hct 43.9 MCV 87.5 MCH 29.5 MCHC 33.7 RDW 14.0 Plt Count 158 MPV 10.1 Neut % (Auto) 73.0 H Lymph % (Auto) 17.7 [place] % (Auto) 7.1 Eos % (Auto) 1.6 Baso % (Auto) 0.6 Neut # (Auto) 6.2 Lymph # (Auto) 1.5 [place] # (Auto) 0.6 Eos # (Auto) 0.1 Baso # (Auto) 0.0 WBC Differential . Differential Comment Auto diff final PT 10.9 INR 1.1 APTT 27.5 Sodium Potassium Chloride Carbon Dioxide Anion Gap BUN Creatinine Estimated GFR Random Glucose Hemoglobin A1c Calcium Magnesium Total Bilirubin AST ALT Alkaline Phosphatase Total Creatine Kinase Troponin I B-Natriuretic Peptide 61 Total Protein Albumin MTS Gel Crossmatch 07/02/18 07/02/18 07/02/18 15:03 15:03 16:50 CBC w Diff WBC RBC Hgb Hct MCV MCH MCHC RDW Plt Count MPV Neut % (Auto) Lymph % (Auto) [place] % (Auto) Eos % (Auto) Baso % (Auto) Neut # (Auto) Lymph # (Auto) [place] # (Auto) Eos # (Auto) Baso # (Auto) WBC Differential Differential Comment PT INR APTT Sodium 144 Potassium 3.7 Chloride 108 H Carbon Dioxide 27.4 Anion Gap 9 BUN 15 Creatinine 1.24 Estimated GFR 57 L Random Glucose 92 Hemoglobin A1c 5.8 Calcium 8.5 Magnesium Total Bilirubin 0.5 AST 9 L ALT 13 Alkaline Phosphatase 78 Total Creatine Kinase Troponin I B-Natriuretic Peptide Total Protein 6.4 Albumin 3.5 MTS Gel Crossmatch See Detail - Imaging Impressions Chest X-Ray 07/02/18 11:22 CONCLUSION: No acute cardiopulmonary disease. Chest X-Ray 07/02/18 13:52 CONCLUSION: No evidence of acute cardiopulmonary disease. Caprini VTE Risk Assessment Caprini VTE Risk Assessment: Moderate/High Risk (score >= 2) Caprini Risk Assessment Model: Point Value = 1 Point Value = 2 Point Value = 3 Point Value = 5 Age 41-60 Minor surgery BMI > 25 kg/m2 Swollen legs Varicose veins or History of unexplained or recurrent spontaneous Oral contraceptives or hormone replacement Sepsis (< 1 month) Serious lung disease, including pneumonia (< 1 month) Abnormal pulmonary function Acute myocardial infarction Congestive heart failure (< 1 month) History of inflammatory bowel disease Medical patient at bed rest Age 61-74 Arthroscopic surgery Major open surgery (> 45 min) Laparoscopic surgery (> 45 min) Malignancy Confined to bed (> 72 hours) Immobilizing plaster cast Central venous access Age >= 75 History of VTE Family history of VTE Factor V Leiden Prothrombin [id number] Lupus anticoagulant Anticardiolipin antibodies Elevated serum homocysteine Heparin-induced thrombocytopenia Other congenital or acquired thrombophilia Stroke (< 1 month) Elective arthroplasty Hip, pelvis, or leg fracture Acute spinal cord injury (< 1 month) Prophylaxis Regimen: Total Risk Factor Score Risk Level Prophylaxis Regimen 0-1 Low Early ambulation 2 Moderate Order ONE of the following: *Sequential Compression Device (SCD) *Heparin 5000 units SQ BID 3-4 Higher Order ONE of the following medications: *Heparin 5000 units SQ TID *Enoxaparin/Lovenox 40 mg SQ daily (WT < 150 kg, CrCl > 30 mL/min) *Enoxaparin/Lovenox 30 mg SQ daily (WT < 150 kg, CrCl > 10-29 mL/min) *Enoxaparin/Lovenox 30 mg SQ BID (WT < 150 kg, CrCl > 30 mL/min) AND/OR *Sequential Compression Device (SCD) 5 or more Highest Order ONE of the following medications: *Heparin 5000 units SQ TID (Preferred with Epidurals) *Enoxaparin/Lovenox 40 mg SQ daily (WT < 150 kg, CrCl > 30 mL/min) *Enoxaparin/Lovenox 30 mg SQ daily (WT < 150 kg, CrCl > 10-29 mL/min) *Enoxaparin/Lovenox 30 mg SQ BID (WT < 150 kg, CrCl > 30 mL/min) AND *Sequential Compression Device (SCD) Assessment and Plan - Plan 73-year-old male Acute CAD, STEMI S/P cath with 3 V disease Hypertension HYperlipidemia -Continue aspirin lisinopril metoprolol, statins, amlodipine -Check lipid panel Cardiology following Cardiovascular surgery consulted Tobacco abuse 2 packs per day History of left lobectomy due to lung cancer - Patient counseled extensively on smoking cessation Lovenox 30 mg SQ daily for DVT prophylaxis
--- NOTE | 2018-07-02 18:49 | US ---
EXAM DATE: 07/02/2018 6:46 PM EDT AGE/SEX: 73 years / Male INDICATIONS: PreOp cardiac surgery. CLINICAL DATA: This is the patient's initial encounter. Patient reports that signs and symptoms have been present for 1 day and indicates a pain score of 0/10. MEDICAL/SURGICAL HISTORY: . Hernia. . Coronary artery stent. Hernia repair. Lobectomy of lung. Cardiac catheterization. COMPARISON: [facility] [place], [place] LEG LEFT VENOUS DOPPLER, 11/21/2017. . TECHNIQUE: Venous ultrasound of both lower extremities was performed from the inguinal ligament to t he proximal calf. Real-time, color Doppler and spectral tracing, compression and augmentation techni ques were used. FINDINGS: Right Leg: Normal compression of the deep venous system from the inguinal region to the proximal talon f. No echogenic clot is seen. Normal response of the venous system to augmentation and respiration. Left Leg: Normal compression of the deep venous system from the inguinal region to the proximal calf . No echogenic clot is seen. Normal response of the venous system to augmentation and respiration. Other: None. CONCLUSION: 1. The study is negative for bilateral lower extremity deep venous thrombosis. Electronically signed by: Golden De Dios MD 07/02/2018 6:47 PM EDT
--- NOTE | 2018-07-02 18:55 | US ---
EXAM DATE: 07/02/2018 6:49 PM EDT AGE/SEX: 73 years / Male INDICATIONS: PreOp cardiac surgery. CLINICAL DATA: This is the patient's initial encounter. Patient reports that signs and symptoms have been present for 1 day and indicates a pain score of 0/10. MEDICAL/SURGICAL HISTORY: . Hernia. . Coronary artery stent. Hernia repair. Lobectomy of lung. Cardiac catheterization. COMPARISON: [facility] – [place], [place] VENOUS DOPPLER LEG BI, 07/02/2018. . MEASUREMENTS: RIGHT THIGH: Proximal:__6 mm Mid:__ 2 mm Distal:__2 mm LEFT THIGH: Proximal:__8 mm Mid:__4 mm Distal:__2 mm RIGHT CALF: Proximal:__Non-visualized Mid:__Non-visualized Distal:__Non-visualized LEFT CALF: Proximal:__Non-visualized Mid:__Non-visualized Distal:__Non-visualized FINDINGS: The venous system of the lower extremities are patent by color Doppler imaging. Measurements of the leg veins (in mm) are listed above. CONCLUSION: 1. Venous mapping as described above. Electronically signed by: Golden De Dios MD 07/02/2018 6:54 PM EDT
--- NOTE | 2018-07-02 19:01 | US ---
EXAM DATE: 07/02/2018 6:51 PM EDT AGE/SEX: 73 years / Male INDICATIONS: PreOp cardiac surgery. CLINICAL DATA: This is the patient's initial encounter. Patient reports that signs and symptoms have been present for 1 day and indicates a pain score of 0/10. MEDICAL/SURGICAL HISTORY: . Hernia. . Coronary artery stent. Hernia repair. Lobectomy of lung. Cardiac catheterization. COMPARISON: PO[facility], US AORTA, 03/19/2016. . VELOCITY PARAMETERS: ICA/CCA Ratio: Right 2.3 , Left 3.8 ICA: Right 165.2 cm/sec, Left 240.4 cm/sec CCA: Right 72.4 cm/sec, Left 63.3 cm/sec ECA: Right 99.6 cm/sec, Left 125.9 cm/sec Vertebral: Right 24.1 cm/sec antegrade, Left 94.5 cm/sec antegrade FINDINGS: Right Carotid: There is slight elevation of the left ICA/CCA ratio and peak systolic velocity of the left ICA suggesting 50-69% stenosis. CTA of the carotids would be helpful for more accurate evaluatio n foraminal stenosis is noted. Left Carotid: There is elevation of the ICA/CCA ratio on the left as well as the peak systolic veloci ty of the left internal carotid artery suggesting greater than 70% stenosis. CTA of the carotids woul d be helpful for more accurate evaluation of luminal stenosis if clinically indicated. Other: None. CONCLUSION: 1. Right Internal Carotid Artery: Slight elevation of the left ICA/CCA ratio and peak systolic veloc ity of the left ICA suggesting 50-69% stenosis. CTA of the carotids would be helpful for more accurat e evaluation foraminal stenosis is noted. 2. Left Internal Carotid Artery: Elevation of the ICA/CCA ratio on the left as well as the peak syst olic velocity of the left internal carotid artery suggesting greater than 70% stenosis. CTA of the ca rotids would be helpful for more accurate evaluation of luminal stenosis if clinically indicated. The waveforms are within normal limits. Electronically signed by: Golden De Dios MD 07/02/2018 7:00 PM EDT
[2018-07-02 19:24] LABS: Bilirubin,Urine Negative (Negative); Calcium Oxalate Crystals,Urine Rare /hpf; Clarity,Urine Clear (Clear); Color,Urine Yellow (Yellw/Straw); Glucose,Urine (UA) Negative (Negative); Hyaline Casts,Urine 3 /lpf (0-3); Leukocyte Esterase,Urine Negative (Negative); Mucus,Urine Few /lpf (Occasional); Nitrite,Urine Negative (Negative); Specific Gravity,Urine 1.053 (1.002-1.035); Squamous Epithelial Cell,Urine <1 /hpf (0-5)
[2018-07-02] MEDS ORDERED: Mupirocin 2% Nasal Oint Topical Syringe EACH NARE SCH (21:00)
[2018-07-02] MEDS: Mupirocin 2% Nasal Oint Topical Syringe EACH NARE SCH (21:21)
[2018-07-02] MEDS: Metoprolol Tartrate 50 MG Tablet PO SCH (21:21)
[2018-07-03 07:37] LABS: Chol/HDL Ratio 2.45 Ratio; HDL Cholesterol 33.8 mg/dL (40.0-60.0)
--- NOTE | 2018-07-03 07:45 | P.PNCV ---
- Note Subjective/Hospital Course: Clinically and hemodynamically stable Denies chest pain or anginal equivalent symptoms Platelet function remains abnormal secondary to Plavix intake Surgery likely Saturday. Will repeat Plavix verify Saturday Objective: Vital Signs - 24 hr 07/02/18 11:22 07/02/18 11:24 07/02/18 11:40 Temperature 98.7 F Pulse Rate 68 63 Respiratory Rate 18 16 Blood Pressure 154/78 H Pulse Oximetry 100 100 100 07/02/18 14:00 07/02/18 15:00 07/02/18 16:00 Temperature 97.7 F Pulse Rate 50 L 58 L 64 Respiratory Rate 16 Blood Pressure 127/66 155/95 H Pulse Oximetry 97 07/02/18 17:00 07/02/18 18:00 07/02/18 20:00 Temperature 98.4 F Pulse Rate 62 74 62 Respiratory Rate 18 Blood Pressure 132/81 Pulse Oximetry 97 07/02/18 21:00 07/02/18 22:00 07/02/18 23:00 Temperature Pulse Rate 61 62 68 Respiratory Rate Blood Pressure Pulse Oximetry 07/03/18 00:00 07/03/18 01:00 07/03/18 04:00 Temperature 98.4 F 97.5 F L Pulse Rate 62 73 67 Respiratory Rate 16 Blood Pressure 136/72 Pulse Oximetry 98 07/03/18 05:57 07/03/18 07:00 07/03/18 07:25 Temperature 97.8 F Pulse Rate 68 59 L 60 Respiratory Rate 16 Blood Pressure 148/68 H Pulse Oximetry 60 L Labs: Laboratory Results - last 12 hr 07/02/18 07/02/18 07/03/18 15:00 16:50 06:34 Plt Funct P2Y12 Units 136 L Triglycerides Cholesterol LDL Cholesterol, Calc HDL Cholesterol Cholesterol/HDL Ratio Nasal Screen MRSA (PCR) Not detected Blood Type O Positive Blood Type Recheck Required Antibody Screen Negative MTS Gel Crossmatch See Detail Bld Prod 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 transplanted heart: [place] heart
--- NOTE | 2018-07-03 08:17 | P.PN ---
Subjective Interval history: telemetry- in SR no complains- Physical Exam Vital signs: Vital Signs 07/02/18 11:22 07/02/18 11:24 07/02/18 11:40 Temperature 98.7 F Pulse Rate 68 63 Respiratory Rate 18 16 Blood Pressure 154/78 H Pulse Oximetry 100 100 100 07/02/18 14:00 07/02/18 15:00 07/02/18 16:00 Temperature 97.7 F Pulse Rate 50 L 58 L 64 Respiratory Rate 16 Blood Pressure 127/66 155/95 H Pulse Oximetry 97 07/02/18 17:00 07/02/18 18:00 07/02/18 20:00 Temperature 98.4 F Pulse Rate 62 74 62 Respiratory Rate 18 Blood Pressure 132/81 Pulse Oximetry 97 07/02/18 21:00 07/02/18 22:00 07/02/18 23:00 Temperature Pulse Rate 61 62 68 Respiratory Rate Blood Pressure Pulse Oximetry 07/03/18 00:00 07/03/18 01:00 07/03/18 04:00 Temperature 98.4 F 97.5 F L Pulse Rate 62 73 67 Respiratory Rate 16 Blood Pressure 136/72 Pulse Oximetry 98 07/03/18 05:57 07/03/18 07:00 07/03/18 07:25 Temperature 97.8 F Pulse Rate 68 59 L 60 Respiratory Rate 16 Blood Pressure 148/68 H Pulse Oximetry 60 L Intake & Output 07/02/18 07/03/18 07/03/18 18:59 06:59 18:59 Intake Total 480 / 480 350 / 350 Output Total 345 / 345 2800 / 2800 Balance 135 / 135 -2450 / -2450 Weight 72.688 kg 72.4 kg Intake: Oral 480 / 480 350 / 350 Output: Urine 345 / 345 2800 / 2800 Other: Date of Last Bowel Movement 07/01/18 07/01/18 Narrative: awake and alert, no acute distress, speech clear anciteric sclerae no nuchal rigidity lungs- no rale, no wheezes regular rhythm abdomen soft, nontender extremities no edema neuro exam- unremarkable Results - Labs CBC & Chem 7: 07/02/18 15:03 07/02/18 15:03 Laboratory Results - last 24 hr 07/02/18 07/02/18 07/02/18 11:20 11:20 11:20 CBC w Diff Auto diff final WBC 8.6 RBC 5.09 Hgb 15.1 Hct 44.0 MCV 86.6 MCH 29.8 MCHC 34.4 RDW 13.8 Plt Count 201 MPV 10.9 Neut % (Auto) 77.0 H Lymph % (Auto) 15.5 [place] % (Auto) 5.3 Eos % (Auto) 1.2 Baso % (Auto) 1.0 Neut # (Auto) 6.6 Lymph # (Auto) 1.3 [place] # (Auto) 0.5 Eos # (Auto) 0.1 Baso # (Auto) 0.1 WBC Differential . Differential Comment . PT 10.8 INR 1.1 APTT 26.0 Plt Funct P2Y12 Units Sodium 140 Potassium 3.7 Chloride 105 Carbon Dioxide 25.0 Anion Gap 10 BUN 16 Creatinine 1.30 Estimated GFR 54 L Random Glucose 137 H Hemoglobin A1c Calcium 9.0 Magnesium 1.9 Total Bilirubin AST ALT Alkaline Phosphatase Total Creatine Kinase 75 Troponin I 0.02 B-Natriuretic Peptide Total Protein Albumin Triglycerides Cholesterol LDL Cholesterol, Calc HDL Cholesterol Cholesterol/HDL Ratio Urine Color Urine Clarity Urine pH Ur Specific [place] Urine Protein Urine Glucose (UA) Urine Ketones Urine Occult Blood Urine Nitrate Urine Bilirubin Urine Urobilinogen Ur Leukocyte Esterase Urine RBC Urine WBC Ur Squamous Epith Cells Calcium Oxalate Crystal Hyaline Casts Urine Mucus Micro UA Comment Ur Microscopic Review Urine Culture Comments Nasal Screen MRSA (PCR) Blood Type Blood Type Recheck Antibody Screen MTS Gel Crossmatch Bld Prod Order Comment 07/02/18 07/02/18 07/02/18 11:20 15:00 15:00 CBC w Diff WBC RBC Hgb Hct MCV MCH MCHC RDW Plt Count MPV Neut % (Auto) Lymph % (Auto) [place] % (Auto) Eos % (Auto) Baso % (Auto) Neut # (Auto) Lymph # (Auto) [place] # (Auto) Eos # (Auto) Baso # (Auto) WBC Differential Differential Comment PT INR APTT Plt Funct P2Y12 Units Sodium Potassium Chloride Carbon Dioxide Anion Gap BUN Creatinine Estimated GFR Random Glucose Hemoglobin A1c Calcium Magnesium Total Bilirubin AST ALT Alkaline Phosphatase Total Creatine Kinase Troponin I B-Natriuretic Peptide 61 Total Protein Albumin Triglycerides Cholesterol LDL Cholesterol, Calc HDL Cholesterol Cholesterol/HDL Ratio Urine Color Yellow Urine Clarity Clear Urine pH 5.0 Ur Specific [place] 1.053 H Urine Protein 30 H Urine Glucose (UA) Negative Urine Ketones Negative Urine Occult Blood Negative Urine Nitrate Negative Urine Bilirubin Negative Urine Urobilinogen 2.0 H Ur Leukocyte Esterase Negative Urine RBC 1 Urine WBC 1 Ur Squamous Epith Cells <1 Calcium Oxalate Crystal Rare H Hyaline Casts 3 Urine Mucus Few H Micro UA Comment Culture not ind Ur Microscopic Review Not Reportable Urine Culture Comments Culture not ind Nasal Screen MRSA (PCR) Not detected Blood Type Blood Type Recheck Antibody Screen MTS Gel Crossmatch Bld Prod Order Comment 07/02/18 07/02/18 07/02/18 15:03 15:03 15:03 CBC w Diff WBC 8.4 RBC 5.02 Hgb 14.8 Hct 43.9 MCV 87.5 MCH 29.5 MCHC 33.7 RDW 14.0 Plt Count 158 MPV 10.1 Neut % (Auto) 73.0 H Lymph % (Auto) 17.7 [place] % (Auto) 7.1 Eos % (Auto) 1.6 Baso % (Auto) 0.6 Neut # (Auto) 6.2 Lymph # (Auto) 1.5 [place] # (Auto) 0.6 Eos # (Auto) 0.1 Baso # (Auto) 0.0 WBC Differential . Differential Comment Auto diff final PT 10.9 INR 1.1 APTT 27.5 Plt Funct P2Y12 Units Sodium 144 Potassium 3.7 Chloride 108 H Carbon Dioxide 27.4 Anion Gap 9 BUN 15 Creatinine 1.24 Estimated GFR 57 L Random Glucose 92 Hemoglobin A1c Calcium 8.5 Magnesium Total Bilirubin 0.5 AST 9 L ALT 13 Alkaline Phosphatase 78 Total Creatine Kinase Troponin I B-Natriuretic Peptide Total Protein 6.4 Albumin 3.5 Triglycerides Cholesterol LDL Cholesterol, Calc HDL Cholesterol Cholesterol/HDL Ratio Urine Color Urine Clarity Urine pH Ur Specific [place] Urine Protein Urine Glucose (UA) Urine Ketones Urine Occult Blood Urine Nitrate Urine Bilirubin Urine Urobilinogen Ur Leukocyte Esterase Urine RBC Urine WBC Ur Squamous Epith Cells Calcium Oxalate Crystal Hyaline Casts Urine Mucus Micro UA Comment Ur Microscopic Review Urine Culture Comments Nasal Screen MRSA (PCR) Blood Type Blood Type Recheck Antibody Screen MTS Gel Crossmatch Bld Prod Order Comment 07/02/18 07/02/18 07/03/18 15:03 16:50 06:34 CBC w Diff WBC RBC Hgb Hct MCV MCH MCHC RDW Plt Count MPV Neut % (Auto) Lymph % (Auto) [place] % (Auto) Eos % (Auto) Baso % (Auto) Neut # (Auto) Lymph # (Auto) [place] # (Auto) Eos # (Auto) Baso # (Auto) WBC Differential Differential Comment PT INR APTT Plt Funct P2Y12 Units 136 L Sodium Potassium Chloride Carbon Dioxide Anion Gap BUN Creatinine Estimated GFR Random Glucose Hemoglobin A1c 5.8 Calcium Magnesium Total Bilirubin AST ALT Alkaline Phosphatase Total Creatine Kinase Troponin I B-Natriuretic Peptide Total Protein Albumin Triglycerides Cholesterol LDL Cholesterol, Calc HDL Cholesterol Cholesterol/HDL Ratio Urine Color Urine Clarity Urine pH Ur Specific [place] Urine Protein Urine Glucose (UA) Urine Ketones Urine Occult Blood Urine Nitrate Urine Bilirubin Urine Urobilinogen Ur Leukocyte Esterase Urine RBC Urine WBC Ur Squamous Epith Cells Calcium Oxalate Crystal Hyaline Casts Urine Mucus Micro UA Comment Ur Microscopic Review Urine Culture Comments Nasal Screen MRSA (PCR) Blood Type O Positive Blood Type Recheck Required Antibody Screen Negative MTS Gel Crossmatch See Detail 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 06:34 CBC w Diff WBC RBC Hgb Hct MCV MCH MCHC RDW Plt Count MPV Neut % (Auto) Lymph % (Auto) [place] % (Auto) Eos % (Auto) Baso % (Auto) Neut # (Auto) Lymph # (Auto) [place] # (Auto) Eos # (Auto) Baso # (Auto) WBC Differential Differential Comment PT INR APTT Plt Funct P2Y12 Units Sodium Potassium Chloride Carbon Dioxide Anion Gap BUN Creatinine Estimated GFR Random Glucose Hemoglobin A1c Calcium Magnesium Total Bilirubin AST ALT Alkaline Phosphatase Total Creatine Kinase Troponin I B-Natriuretic Peptide Total Protein Albumin Triglycerides 106 Cholesterol 83 L LDL Cholesterol, Calc 28 HDL Cholesterol 33.8 L Cholesterol/HDL Ratio 2.45 Urine Color Urine Clarity Urine pH Ur Specific [place] Urine Protein Urine Glucose (UA) Urine Ketones Urine Occult Blood Urine Nitrate Urine Bilirubin Urine Urobilinogen Ur Leukocyte Esterase Urine RBC Urine WBC Ur Squamous Epith Cells Calcium Oxalate Crystal Hyaline Casts Urine Mucus Micro UA Comment Ur Microscopic Review Urine Culture Comments Nasal Screen MRSA (PCR) Blood Type Blood Type Recheck Antibody Screen MTS Gel Crossmatch Bld Prod Order Comment - Imaging Impressions Chest X-Ray 07/02/18 11:22 CONCLUSION: No acute cardiopulmonary disease. Carotid Doppler Study 07/02/18 13:52 CONCLUSION: 1. Right Internal Carotid Artery: Slight elevation of the left ICA/CCA ratio and peak systolic velocity of the left ICA suggesting 50-69% stenosis. CTA of the carotids would be helpful for more accurate evaluation foraminal stenosis is noted. 2. Left Internal Carotid Artery: Elevation of the ICA/CCA ratio on the left as well as the peak systolic velocity of the left internal carotid artery suggesting greater than 70% stenosis. CTA of the carotids would be helpful for more accurate evaluation of luminal stenosis if clinically indicated. The waveforms are within normal limits. Chest X-Ray 07/02/18 13:52 CONCLUSION: No evidence of acute cardiopulmonary disease. Lower Extremity Ultrasound 07/02/18 13:52 CONCLUSION: 1. Venous mapping as described above. Venous Doppler Study 07/02/18 13:52 CONCLUSION: 1. The study is negative for bilateral lower extremity deep venous thrombosis. - Procedures cardiac cath 07/02- Assessment and Plan - Plan 73-year-old male Acute CAD, STEMI S/P cath with 3 V disease Hypertension HYperlipidemia -Continue aspirin lisinopril metoprolol, statins, amlodipine Cardiology following Cardiovascular surgery ff- plan for CABG - Saturday Tobacco abuse 2 packs per day History of left lobectomy due to lung cancer - Patient counseled extensively on smoking cessation Encourage up and ambulation Lovenox 30 mg SQ daily for DVT prophylaxis
[2018-07-03] MEDS: amLODIPine 5 MG Tablet PO SCH (08:23)
[2018-07-03] MEDS: Mupirocin 2% Nasal Oint Topical Syringe EACH NARE SCH ×2 (08:23→21:22)
[2018-07-03] MEDS: Enoxaparin Inj 30 MG/0.3 ML Syringe SQ SCH (08:23)
[2018-07-03] MEDS: Metoprolol Tartrate 50 MG Tablet PO SCH ×2 (08:23→21:23)
[2018-07-03] MEDS: Lisinopril 20 MG Tablet PO SCH (08:23)
[2018-07-03 11:50] LABS: Troponin I 0.04 ng/mL (0.02-0.05)
[2018-07-03] MEDS ORDERED: Iohexol 350 MG/ML 50 ML Vial (for Cath Lab) IVCONTRAST ONE (12:54)
--- NOTE | 2018-07-03 13:03 | P.PNCA ---
Subjective Interval history: alert in nad, assymptomatic Physical Exam Vital signs: Vital Signs 07/02/18 14:00 07/02/18 15:00 07/02/18 16:00 Temperature 97.7 F Pulse Rate 50 L 58 L 64 Respiratory Rate 16 Blood Pressure 127/66 155/95 H Pulse Oximetry 97 07/02/18 17:00 07/02/18 18:00 07/02/18 20:00 Temperature 98.4 F Pulse Rate 62 74 62 Respiratory Rate 18 Blood Pressure 132/81 Pulse Oximetry 97 07/02/18 21:00 07/02/18 22:00 07/02/18 23:00 Temperature Pulse Rate 61 62 68 Respiratory Rate Blood Pressure Pulse Oximetry 07/03/18 00:00 07/03/18 01:00 07/03/18 04:00 Temperature 98.4 F 97.5 F L Pulse Rate 62 73 67 Respiratory Rate 16 Blood Pressure 136/72 Pulse Oximetry 98 07/03/18 05:57 07/03/18 07:00 07/03/18 07:25 Temperature 97.8 F Pulse Rate 68 59 L 60 Respiratory Rate 16 Blood Pressure 148/68 H Pulse Oximetry 60 L 07/03/18 08:00 07/03/18 09:00 07/03/18 10:00 Temperature Pulse Rate 59 L 62 60 Respiratory Rate Blood Pressure Pulse Oximetry 97 07/03/18 10:49 07/03/18 11:00 07/03/18 12:00 Temperature 98.7 F Pulse Rate 61 57 L Respiratory Rate 16 Blood Pressure 123/58 L Pulse Oximetry 97 Intake & Output 07/02/18 07/03/18 07/03/18 18:59 06:59 18:59 Intake Total 980 / 980 350 / 350 Output Total 345 / 345 2800 / 2800 Balance 635 / 635 -2450 / -2450 Weight 72.688 kg 72.4 kg Intake: IV 500 / 500 NS Inj 1,000 ML @ 30 mls/hr IV. 500 / 500 SIG .Q24H SHAHRAM Rx#:[id number] Oral 480 / 480 350 / 350 Output: Urine 345 / 345 2800 / 2800 Other: Date of Last Bowel Movement 07/01/18 07/01/18 Assessment and Plan - Assessment (1) Unstable angina Code(s): I20.0 - Unstable angina Status: Acute (2) Tobacco abuse Code(s): Z72.0 - Tobacco use Status: Acute (3) CAD (coronary artery disease), [place] coronary artery Code(s): I25.10 - Atherosclerotic heart disease of [place] coronary artery without angina pectoris Status: Acute - Plan 1.) Severe 3 vessel cad - plavix held, cabg when platelet function adequate, f/ u echo and carotid us, continue aspirin, lipitor, lopressor, lisinopril; patient strongly advised to stop smoking (3) CAD (coronary artery disease), [place] coronary artery Qualifiers: [place] vs. transplanted heart: [place] heart
--- NOTE | 2018-07-03 16:15 | ECHRPT ---
Indication: Coronary Atherosclerosis CONCLUSIONS Normal left ventricular size. Wall thickness is measured at the upper limits of normal. The left ventricular systolic function is normal with an estimated ejection fraction in the range of 55-60%. No definite regional wall motion abnormalities. Mild mitral annular calcification is present. Trace mitral valve regurgitation. [place] aortic valve. Mild calcification of the noncoronary cusp. Trace to mild aortic valve regu rgitation. There is trace tricuspid valve regurgitation. BP: / HR: Rhythm: MEASUREMENTS (Male / Female) Normal Values Technical Quality:Fair 2D ECHO LV Diastolic Diameter PLAX 4.5 cm 4.2 - 5.9 / 3.9 - 5.3 cm LV Systolic Diameter PLAX 3.5 cm IVS Diastolic Thickness 1.3 cm 0.6 - 1.0 / 0.6 - 0.9 cm LVPW Diastolic Thickness 1.1 cm 0.6 - 1.0 / 0.6 - 0.9 cm LV Relative Wall Thickness 0.5 LVOT Diameter 2.0 cm Aortic Root Diameter 3.7 cm LA Systolic Diameter LX 3.0 cm 3.0 - 4.0 / 2.7 - 3.8 cm M-MODE AV Cusp Separation MM 1.8 cm DOPPLER AV Peak Velocity 130.0 cm/s AV Peak Gradient 6.8 mmHg AI Peak Velocity 368.0 cm/s AI Peak Gradient 54.2 mmHg AI Pressure Half Time 548.0 ms LVOT Peak Velocity 107.0 cm/s LVOT Peak Gradient 4.6 mmHg AV Area Cont Eq pk 2.6 cm Mitral E Point Velocity 72.0 cm/s Mitral A Point Velocity 118.0 cm/s Mitral E to A Ratio 0.6 LV E' Lateral Velocity 5.8 cm/s Mitral E to LV E' Lateral Ratio 12.5 LV E' Septal Velocity 5.7 cm/s Mitral E to LV E' Septal Ratio 12.7 TR Peak Velocity 247.0 cm/s TR Peak Gradient 24.4 mmHg Right Atrial Pressure 10.0 mmHg Pulmonary Artery Systolic Pressu 34.4 mmHg Right Ventricular Systolic Press 34.4 mmHg PV Peak Velocity 59.0 cm/s PV Peak Gradient 1.4 mmHg FINDINGS LEFT VENTRICLE Normal left ventricular size. Wall thickness is measured at the upper limits of normal. The left ventricular systolic function is normal with an estimated ejection fraction in the range of 55-60%. No definite regional wall motion abnormalities. RIGHT VENTRICLE Normal right ventricular size and systolic function. LEFT ATRIUM The left atrial size is normal. RIGHT ATRIUM The right atrial size is normal. ATRIAL SEPTUM Normal atrial septal thickness without atrial level shunting by limited color doppler interrogation. AORTA The aortic root and proximal ascending aorta are normal in size on limited imaging. MITRAL VALVE Mild mitral annular calcification is present. Trace mitral valve regurgitation. AORTIC VALVE [place] aortic valve. Mild calcification of the noncoronary cusp. Trace to mild aortic valve regu rgitation. TRICUSPID VALVE There is trace tricuspid valve regurgitation. PULMONARY VALVE Trivial pulmonary valve regurgitation. VESSELS The inferior vena cava is normal in size. PERICARDIUM No pericardial effusion. Adrian Erazo MD (Electronically Signed) Final Date:03 July 2018 16:14
--- NOTE | 2018-07-04 00:36 | ECG ---
Date Performed: 07/02/2018 Time Performed: 19:53:04 PTAGE: 73 years EKG: Sinus rhythm with borderline 1st degree A-V block Anteroseptal infarct - age undetermined LVH with secondary repo larization abnormality Lateral ST-T changes may be due to hypertrophy and/or ischemia Abnormal ECG PREVIOUS TRACING : 07/02/2018 11.12 Since the previous tracing, no significant change noted DOCTOR: Myles Hagen Interpretating Date/Time 07/04/2018 00:34:44
--- NOTE | 2018-07-04 00:55 | ECG ---
Date Performed: 07/02/2018 Time Performed: 11:12:09 PTAGE: 73 years EKG: Sinus rhythm SEPTAL MYOCARDIAL INFARCTION POSSIBLE ACUTE [place] LATERAL CHANGES MAY BE DUE TO ISCHEMIA Since e PREVIOUS TRACING , no significant change noted DOCTOR: Myles Hagen Interpretating Date/Time 07/04/2018 00:53:18
--- NOTE | 2018-07-04 08:42 | P.PNCV ---
- Note Subjective/Hospital Course: 07/03 Clinically and hemodynamically stable Denies chest pain or anginal equivalent symptoms Platelet function remains abnormal secondary to Plavix intake Surgery likely Saturday. Will repeat Plavix verify 07/04 Clinical stable. Denies any chest pain. Does complain of moderate to severe left flank pain. Denies nausea or vomiting Exam: Abdomen is tender to deep palpation in the left upper quadrant. No rebound or guarding. Normoactive bowel sounds. Nondistended. Planned cardiac surgery for Saturday if platelet function assay is within normal limits Needs further evaluation of abdominal pain to exclude a more urgent etiology. We will continue to follow with you. Objective: Vital Signs - 24 hr 07/03/18 09:00 07/03/18 10:00 07/03/18 10:49 Temperature Pulse Rate 62 60 Respiratory Rate Blood Pressure Pulse Oximetry 97 07/03/18 11:00 07/03/18 12:00 07/03/18 13:00 Temperature 98.7 F Pulse Rate 61 57 L 58 L Respiratory Rate 16 Blood Pressure 123/58 L Pulse Oximetry 07/03/18 14:00 07/03/18 15:00 07/03/18 15:44 Temperature 97.7 F Pulse Rate 59 L 58 L 68 Respiratory Rate 18 Blood Pressure 151/73 H Pulse Oximetry 98 07/03/18 16:00 07/03/18 17:00 07/03/18 18:00 Temperature Pulse Rate 65 62 67 Respiratory Rate Blood Pressure Pulse Oximetry 07/03/18 19:00 07/03/18 20:00 07/03/18 21:00 Temperature 98.2 F Pulse Rate 67 67 66 Respiratory Rate Blood Pressure 151/70 H Pulse Oximetry 07/03/18 22:00 07/03/18 23:00 07/04/18 00:00 Temperature Pulse Rate 66 67 Respiratory Rate Blood Pressure 138/73 Pulse Oximetry 07/04/18 01:00 07/04/18 02:00 07/04/18 03:00 Temperature Pulse Rate 69 66 68 Respiratory Rate Blood Pressure Pulse Oximetry 07/04/18 04:00 07/04/18 05:00 07/04/18 06:00 Temperature Pulse Rate 70 72 7 L Respiratory Rate Blood Pressure 145/67 H Pulse Oximetry 07/04/18 07:00 Temperature Pulse Rate 60 Respiratory Rate Blood Pressure Pulse Oximetry Result Diagrams: 07/02/18 15:03 07/02/18 15:03 - Plan (1) CAD (coronary artery disease), [place] coronary artery (1) CAD (coronary artery disease), [place] coronary artery Qualifiers: [place] vs. transplanted heart: [place] heart
[2018-07-04] MEDS: Mupirocin 2% Nasal Oint Topical Syringe EACH NARE SCH ×2 (09:05→21:30)
[2018-07-04] MEDS: Enoxaparin Inj 30 MG/0.3 ML Syringe SQ SCH (09:05)
[2018-07-04] MEDS: amLODIPine 5 MG Tablet PO SCH (09:05)
[2018-07-04] MEDS: Lisinopril 20 MG Tablet PO SCH (09:05)
[2018-07-04] MEDS: Metoprolol Tartrate 50 MG Tablet PO SCH ×2 (09:06→21:30)
--- NOTE | 2018-07-04 10:06 | P.PN ---
Subjective Interval history: complains of left upper quadrant pain- steady pain occasionally worse with mvoement denies any nausea or vomiting or reflux symptoms states usual BM- consitpated- used dulcolax prn Physical Exam Vital signs: Vital Signs 07/03/18 10:49 07/03/18 11:00 07/03/18 12:00 Temperature 98.7 F Pulse Rate 61 57 L Respiratory Rate 16 Blood Pressure 123/58 L Pulse Oximetry 97 07/03/18 13:00 07/03/18 14:00 07/03/18 15:00 Temperature Pulse Rate 58 L 59 L 58 L Respiratory Rate Blood Pressure Pulse Oximetry 07/03/18 15:44 07/03/18 16:00 07/03/18 17:00 Temperature 97.7 F Pulse Rate 68 65 62 Respiratory Rate 18 Blood Pressure 151/73 H Pulse Oximetry 98 07/03/18 18:00 07/03/18 19:00 07/03/18 20:00 Temperature 98.2 F Pulse Rate 67 67 67 Respiratory Rate Blood Pressure 151/70 H Pulse Oximetry 07/03/18 21:00 07/03/18 22:00 07/03/18 23:00 Temperature Pulse Rate 66 66 67 Respiratory Rate Blood Pressure Pulse Oximetry 07/04/18 00:00 07/04/18 01:00 07/04/18 02:00 Temperature Pulse Rate 69 66 Respiratory Rate Blood Pressure 138/73 Pulse Oximetry 07/04/18 03:00 07/04/18 04:00 07/04/18 05:00 Temperature Pulse Rate 68 70 72 Respiratory Rate Blood Pressure 145/67 H Pulse Oximetry 07/04/18 06:00 07/04/18 07:00 Temperature Pulse Rate 7 L 60 Respiratory Rate Blood Pressure Pulse Oximetry Intake & Output 07/03/18 07/04/18 07/04/18 18:59 06:59 18:59 Intake Total 1200 / 1200 250 / 250 Output Total 790 / 790 950 / 950 Balance 410 / 410 -700 / -700 Weight 70.4 kg Intake: Oral 1200 / 1200 250 / 250 Output: Urine 790 / 790 950 / 950 Other: Date of Last Bowel Movement 07/01/18 07/01/18 Narrative: awake and alert, no acute distress, speech clear anciteric sclerae no nuchal rigidity lungs- no rale, no wheezes regular rhythm abdomen soft, nontender, + tendernes son deep palaption of left upper quadrant extremities no edema neuro exam- unremarkable Results - Labs CBC & Chem 7: 07/02/18 15:03 07/02/18 15:03 Laboratory Results - last 24 hr 07/03/18 11:12 Total Creatine Kinase 60 Troponin I 0.04 - Procedures cardiac cath 07/02- Assessment and Plan - Plan 73-year-old male Acute CAD, STEMI S/P cath with 3 V disease Hypertension HYperlipidemia -Continue aspirin lisinopril metoprolol, statins, amlodipine Cardiology following Cardiovascular surgery ff- plan for CABG - Saturday Left upper quadrant pain -get CMP, lipase - get CT of the abdomen Tobacco abuse 2 packs per day History of left lobectomy due to lung cancer - Patient counseled extensively on smoking cessation Encourage up and ambulation Lovenox 30 mg SQ daily for DVT prophylaxis
[2018-07-04 11:10] LABS: Albumin 3.2 g/dL (3.4-5.0); Anion Gap 7 meq/L (5-15); Aspartate Aminotransferase 11 U/L (15-37); Blood Urea Nitrogen 11 mg/dL (7-18); Calcium 8.7 mg/dL (8.5-10.1); Carbon Dioxide 27.8 meq/L (21.0-32.0); Chloride 105 meq/L (98-107); Glomerular Filtration Rate 67 mL/min (>89); Glucose,Random 173 mg/dL (74-106); Potassium 3.6 meq/L (3.5-5.1); Sodium 140 meq/L (136-145)
[2018-07-04 11:11] LABS: Alanine Aminotransferase 11 U/L (12-78)
[2018-07-04 11:13] LABS: Alkaline Phosphatase 76 U/L (45-117); Total Protein 5.8 g/dL (6.4-8.2)
--- NOTE | 2018-07-04 11:24 | P.PNCA ---
Subjective Interval history: denies chest pain or dyspnea Physical Exam Vital signs: Vital Signs 07/03/18 12:00 07/03/18 13:00 07/03/18 14:00 Temperature 98.7 F Pulse Rate 57 L 58 L 59 L Respiratory Rate 16 Blood Pressure 123/58 L Pulse Oximetry 07/03/18 15:00 07/03/18 15:44 07/03/18 16:00 Temperature 97.7 F Pulse Rate 58 L 68 65 Respiratory Rate 18 Blood Pressure 151/73 H Pulse Oximetry 98 07/03/18 17:00 07/03/18 18:00 07/03/18 19:00 Temperature Pulse Rate 62 67 67 Respiratory Rate Blood Pressure Pulse Oximetry 07/03/18 20:00 07/03/18 21:00 07/03/18 22:00 Temperature 98.2 F Pulse Rate 67 66 66 Respiratory Rate Blood Pressure 151/70 H Pulse Oximetry 07/03/18 23:00 07/04/18 00:00 07/04/18 01:00 Temperature Pulse Rate 67 69 Respiratory Rate Blood Pressure 138/73 Pulse Oximetry 07/04/18 02:00 07/04/18 03:00 07/04/18 04:00 Temperature Pulse Rate 66 68 70 Respiratory Rate Blood Pressure 145/67 H Pulse Oximetry 07/04/18 05:00 07/04/18 06:00 07/04/18 07:00 Temperature Pulse Rate 72 7 L 60 Respiratory Rate Blood Pressure Pulse Oximetry 07/04/18 08:00 07/04/18 09:00 07/04/18 10:00 Temperature 98.2 F Pulse Rate 61 58 L 59 L Respiratory Rate 18 Blood Pressure 135/60 Pulse Oximetry 98 07/04/18 10:28 07/04/18 11:00 Temperature Pulse Rate 59 L Respiratory Rate Blood Pressure Pulse Oximetry 94 L Intake & Output 07/03/18 07/04/18 07/04/18 18:59 06:59 18:59 Intake Total 1200 / 1200 250 / 250 Output Total 790 / 790 950 / 950 Balance 410 / 410 -700 / -700 Weight 70.4 kg Intake: Oral 1200 / 1200 250 / 250 Output: Urine 790 / 790 950 / 950 Other: Date of Last Bowel Movement 07/01/18 07/01/18 07/01/18 Assessment and Plan - Assessment (1) Unstable angina Code(s): I20.0 - Unstable angina Status: Acute (2) Tobacco abuse Code(s): Z72.0 - Tobacco use Status: Acute (3) CAD (coronary artery disease), [place] coronary artery Code(s): I25.10 - Atherosclerotic heart disease of [place] coronary artery without angina pectoris Status: Acute - Plan 1.) Severe 3 vessel cad - plavix held, cabg when platelet function adequate, f/ u echo and carotid us, continue aspirin, lipitor, lopressor, lisinopril; patient strongly advised to stop smoking (3) CAD (coronary artery disease), [place] coronary artery Qualifiers: [place] vs. transplanted heart: [place] heart
--- NOTE | 2018-07-04 15:47 | CT ---
EXAM DATE: 07/04/2018 3:31 PM EDT AGE/SEX: 73 years / Male INDICATIONS: Left upper quadrant pain. CLINICAL DATA: This is the patient's initial encounter. Patient reports that signs and symptoms have been present for 1 day and indicates a pain score of 5/10. MEDICAL/SURGICAL HISTORY: Hypertension. Carcinoma, lung. None. RADIATION DOSE: 6.64 CTDI (mGy) COMPARISON: No prior exams available for comparison. TECHNIQUE: Multiple contiguous axial images were obtained through the abdomen. Images were obtained using multiple row detector helical technique. Using automated exposure control and adjustment of the mA and/or kV according to patient size, radiation dose was kept as low as reasonably achievable to o btain optimal diagnostic quality images. DICOM format image data is available electronically for rev iew and comparison. FINDINGS: Minimal parenchymal changes both lung bases Liver is free of focal defects. Gallbladder small and contracted Spleen and pancreas appear normal Prominent adrenals bilaterally, low-density nonspecific without focal mass Right and left kidneys unremarkable Mild aneurysmal dilatation, aorta 3.5 cm. The cecum, ascending colon, transverse and descending colon appear normal. Scattered stool is evident In the pelvis extensive vascular calcic ages are noted. There are no inflammatory changes. Prominent prostate. Seminal vesicles appear normal Small right hydrocele. Correlation suggested Minimal subcutaneous air right lower quadrant nonspecific. This could be related to an injection. CONCLUSION: 1. Moderate atherosclerotic vascular disease with minimal aneurysmal dilatation as above 2. I do not see an etiology for the left upper quadrant pain. Electronically signed by: Ruperto Finley MD 07/04/2018 3:46 PM EDT
--- NOTE | 2018-07-05 09:24 | P.PNCV ---
- Note Subjective/Hospital Course: 07/03 Clinically and hemodynamically stable Denies chest pain or anginal equivalent symptoms Platelet function remains abnormal secondary to Plavix intake Surgery likely Saturday. Will repeat Plavix verify 07/04 Clinical stable. Denies any chest pain. Does complain of moderate to severe left flank pain. Denies nausea or vomiting Exam: Abdomen is tender to deep palpation in the left upper quadrant. No rebound or guarding. Normoactive bowel sounds. Nondistended. Planned cardiac surgery for Saturday if platelet function assay is within normal limits Needs further evaluation of abdominal pain to exclude a more urgent etiology. We will continue to follow with you. 07/[address] results noted. No acute pathology Plavix verify assay in the morning with possible surgery to follow Saturday Objective: Vital Signs - 24 hr 07/04/18 10:00 07/04/18 10:28 07/04/18 11:00 Temperature Pulse Rate 59 L 59 L Respiratory Rate Blood Pressure Pulse Oximetry 94 L 07/04/18 12:00 07/04/18 12:54 07/04/18 14:00 Temperature 98.1 F Pulse Rate 58 L 65 62 Respiratory Rate 18 Blood Pressure 144/86 H Pulse Oximetry 98 07/04/18 14:29 07/04/18 16:00 07/04/18 16:40 Temperature 98.2 F Pulse Rate 62 62 68 Respiratory Rate 18 Blood Pressure 156/84 H Pulse Oximetry 98 07/04/18 17:38 07/04/18 19:00 07/04/18 20:00 Temperature 97.6 F Pulse Rate 62 72 76 Respiratory Rate 16 Blood Pressure 140/65 Pulse Oximetry 96 07/04/18 21:00 07/04/18 22:00 07/04/18 23:00 Temperature Pulse Rate 84 85 58 L Respiratory Rate Blood Pressure Pulse Oximetry 07/05/18 00:00 07/05/18 01:00 07/05/18 02:00 Temperature 98.1 F Pulse Rate 59 L 60 60 Respiratory Rate 16 Blood Pressure 137/75 Pulse Oximetry 96 07/05/18 03:00 07/05/18 04:00 07/05/18 05:00 Temperature 97.9 F Pulse Rate 63 61 70 Respiratory Rate 16 Blood Pressure 133/81 Pulse Oximetry 95 07/05/18 06:00 Temperature Pulse Rate 57 L Respiratory Rate Blood Pressure Pulse Oximetry Labs: Laboratory Results - last 12 hr 07/02/18 16:50 MTS Gel Crossmatch See Detail Result Diagrams: 07/02/18 15:03 07/04/18 10:40 - Plan (1) CAD (coronary artery disease), [place] coronary artery (1) CAD (coronary artery disease), [place] coronary artery Qualifiers: [place] vs. transplanted heart: [place] heart
[2018-07-05] MEDS: Lisinopril 20 MG Tablet PO SCH (09:27)
[2018-07-05] MEDS: amLODIPine 5 MG Tablet PO SCH (09:27)
[2018-07-05] MEDS: Metoprolol Tartrate 50 MG Tablet PO SCH ×2 (09:27→21:21)
[2018-07-05] MEDS: Mupirocin 2% Nasal Oint Topical Syringe EACH NARE SCH ×2 (09:27→21:21)
[2018-07-05] MEDS: Enoxaparin Inj 30 MG/0.3 ML Syringe SQ SCH (09:28)
--- NOTE | 2018-07-05 10:54 | P.PNCA ---
Subjective Interval history: denies chest pain or dyspnea, c/o luq pain, ct abd 07/04/18 without etiology Physical Exam Vital signs: Vital Signs 07/04/18 11:00 07/04/18 12:00 07/04/18 12:54 Temperature 98.1 F Pulse Rate 59 L 58 L 65 Respiratory Rate 18 Blood Pressure 144/86 H Pulse Oximetry 98 07/04/18 14:00 07/04/18 14:29 07/04/18 16:00 Temperature 98.2 F Pulse Rate 62 62 62 Respiratory Rate 18 Blood Pressure 156/84 H Pulse Oximetry 98 07/04/18 16:40 07/04/18 17:38 07/04/18 19:00 Temperature Pulse Rate 68 62 72 Respiratory Rate Blood Pressure Pulse Oximetry 07/04/18 20:00 07/04/18 21:00 07/04/18 22:00 Temperature 97.6 F Pulse Rate 76 84 85 Respiratory Rate 16 Blood Pressure 140/65 Pulse Oximetry 96 07/04/18 23:00 07/05/18 00:00 07/05/18 01:00 Temperature 98.1 F Pulse Rate 58 L 59 L 60 Respiratory Rate 16 Blood Pressure 137/75 Pulse Oximetry 96 07/05/18 02:00 07/05/18 03:00 07/05/18 04:00 Temperature 97.9 F Pulse Rate 60 63 61 Respiratory Rate 16 Blood Pressure 133/81 Pulse Oximetry 95 07/05/18 05:00 07/05/18 06:00 Temperature Pulse Rate 70 57 L Respiratory Rate Blood Pressure Pulse Oximetry Intake & Output 07/04/18 07/05/18 07/05/18 18:59 06:59 18:59 Intake Total 1250 / 1250 360 / 360 Output Total 600 / 600 800 / 800 Balance 650 / 650 -440 / -440 Weight 72.5 kg Intake: Oral 1250 / 1250 360 / 360 Output: Urine 600 / 600 800 / 800 Other: Date of Last Bowel Movement 07/01/18 07/03/18 Assessment and Plan - Assessment (1) Unstable angina Code(s): I20.0 - Unstable angina Status: Acute (2) Tobacco abuse Code(s): Z72.0 - Tobacco use Status: Acute (3) CAD (coronary artery disease), [place] coronary artery Code(s): I25.10 - Atherosclerotic heart disease of [place] coronary artery without angina pectoris Status: Acute - Plan 1.) Severe 3 vessel cad - plavix held, cabg when platelet function adequate, echo ef wnl and carotid us canceled, continue aspirin, lipitor, lopressor, lisinopril; patient strongly advised to stop smoking (3) CAD (coronary artery disease), [place] coronary artery Qualifiers: [place] vs. transplanted heart: [place] heart
--- NOTE | 2018-07-05 11:49 | P.PN ---
Subjective Interval history: complains of back pain no complains of chest pain or shrtness of breath patient is very demanding- requesting for sheet changes, his food tray, reuesting for new tissue boxes Physical Exam Vital signs: Vital Signs 07/04/18 12:00 07/04/18 12:54 07/04/18 14:00 Temperature 98.1 F Pulse Rate 58 L 65 62 Respiratory Rate 18 Blood Pressure 144/86 H Pulse Oximetry 98 07/04/18 14:29 07/04/18 16:00 07/04/18 16:40 Temperature 98.2 F Pulse Rate 62 62 68 Respiratory Rate 18 Blood Pressure 156/84 H Pulse Oximetry 98 07/04/18 17:38 07/04/18 19:00 07/04/18 20:00 Temperature 97.6 F Pulse Rate 62 72 76 Respiratory Rate 16 Blood Pressure 140/65 Pulse Oximetry 96 07/04/18 21:00 07/04/18 22:00 07/04/18 23:00 Temperature Pulse Rate 84 85 58 L Respiratory Rate Blood Pressure Pulse Oximetry 07/05/18 00:00 07/05/18 01:00 07/05/18 02:00 Temperature 98.1 F Pulse Rate 59 L 60 60 Respiratory Rate 16 Blood Pressure 137/75 Pulse Oximetry 96 07/05/18 03:00 07/05/18 04:00 07/05/18 05:00 Temperature 97.9 F Pulse Rate 63 61 70 Respiratory Rate 16 Blood Pressure 133/81 Pulse Oximetry 95 07/05/18 06:00 Temperature Pulse Rate 57 L Respiratory Rate Blood Pressure Pulse Oximetry Intake & Output 07/04/18 07/05/18 07/05/18 18:59 06:59 18:59 Intake Total 1250 / 1250 360 / 360 Output Total 600 / 600 800 / 800 Balance 650 / 650 -440 / -440 Weight 72.5 kg Intake: Oral 1250 / 1250 360 / 360 Output: Urine 600 / 600 800 / 800 Other: Date of Last Bowel Movement 07/01/18 07/03/18 Narrative: awake and alert, no acute distress, speech clear anciteric sclerae no nuchal rigidity lungs- no rale, no wheezes regular rhythm abdomen soft, nontender, good bowel sounds, no guarding, no rigidity extremities no edema neuro exam- unremarkable Results - Labs CBC & Chem 7: 07/02/18 15:03 07/04/18 10:40 Laboratory Results - last 24 hr 07/02/18 16:50 MTS Gel Crossmatch See Detail - Imaging Impressions Abdomen/Pelvis CT 07/04/18 00:00 CONCLUSION: 1. Moderate atherosclerotic vascular disease with minimal aneurysmal dilatation as above 2. I do not see an etiology for the left upper quadrant pain. - Procedures cardiac cath 07/02- Assessment and Plan - Plan 73-year-old male Acute CAD, STEMI S/P cath with 3 V disease Hypertension HYperlipidemia -Continue aspirin lisinopril metoprolol, statins, amlodipine Cardiology following Cardiovascular surgery ff- plan for CABG - Saturday Left upper quadrant pain- improved- no futher complains -get CMP, lipase= unremarkable - CT of the abdomen- unremarakbel Tobacco abuse 2 packs per day History of left lobectomy due to lung cancer - Patient counseled extensively on smoking cessation Back pain- low - per patient chronic - Lortab for back pain Encourage up and ambulation Lovenox 30 mg SQ daily for DVT prophylaxis
[2018-07-06] MEDS ORDERED: Senna/Docusate Sodium 8.6/50 MG Tablet PO ONE (09:17)
[2018-07-06] MEDS: Enoxaparin Inj 30 MG/0.3 ML Syringe SQ SCH (09:17)
[2018-07-06] MEDS: Mupirocin 2% Nasal Oint Topical Syringe EACH NARE SCH (09:17)
[2018-07-06] MEDS: Metoprolol Tartrate 50 MG Tablet PO SCH ×2 (09:17→20:38)
[2018-07-06] MEDS: amLODIPine 5 MG Tablet PO SCH (09:17)
[2018-07-06] MEDS: Lisinopril 20 MG Tablet PO SCH (09:17)
--- NOTE | 2018-07-06 09:19 | P.PN ---
Subjective Interval history: flat in bed no complains except for no BM- + flatus Physical Exam Vital signs: Vital Signs 07/05/18 10:00 07/05/18 11:00 07/05/18 12:00 Temperature 97.9 F Pulse Rate 64 52 L 56 L Respiratory Rate 16 Blood Pressure 121/82 Pulse Oximetry 98 07/05/18 13:00 07/05/18 13:27 07/05/18 13:32 Temperature Pulse Rate 56 L 58 L Respiratory Rate 16 Blood Pressure Pulse Oximetry 98 07/05/18 14:00 07/05/18 15:00 07/05/18 16:00 Temperature 97.7 F Pulse Rate 58 L 56 L 62 Respiratory Rate 16 Blood Pressure 120/70 Pulse Oximetry 97 07/05/18 17:00 07/05/18 18:00 07/05/18 19:00 Temperature Pulse Rate 66 62 64 Respiratory Rate Blood Pressure Pulse Oximetry 07/05/18 20:00 07/05/18 20:59 07/05/18 21:00 Temperature 97 F L Pulse Rate 60 62 62 Respiratory Rate 16 16 Blood Pressure 115/46 L Pulse Oximetry 98 07/05/18 21:21 07/05/18 22:00 07/05/18 23:00 Temperature Pulse Rate 70 55 L Respiratory Rate 18 Blood Pressure Pulse Oximetry 07/05/18 23:27 07/05/18 23:52 07/06/18 00:00 Temperature Pulse Rate 71 57 L 56 L Respiratory Rate 18 16 Blood Pressure 121/55 L Pulse Oximetry 95 07/06/18 01:00 07/06/18 02:00 07/06/18 03:00 Temperature Pulse Rate 56 L 56 L 59 L Respiratory Rate Blood Pressure Pulse Oximetry 07/06/18 04:00 07/06/18 05:00 07/06/18 05:06 Temperature Pulse Rate 52 L 54 L Respiratory Rate 16 Blood Pressure Pulse Oximetry 07/06/18 05:09 07/06/18 06:00 07/06/18 07:55 Temperature Pulse Rate 59 L 56 L 56 L Respiratory Rate 16 16 Blood Pressure 132/60 Pulse Oximetry 97 97 07/06/18 08:00 Temperature 97.8 F Pulse Rate 62 Respiratory Rate 18 Blood Pressure 127/63 Pulse Oximetry 99 Intake & Output 09/08/18 09/09/18 09/09/18 18:59 06:59 18:59 Intake Total 1060 / 1060 480 / 480 Output Total 1000 / 1000 1250 / 1250 Balance 60 / 60 -770 / -770 Weight 72.6 kg Intake: Oral 1060 / 1060 480 / 480 Output: Urine 1000 / 1000 1250 / 1250 Other: Date of Last Bowel Movement 07/05/18 07/02/18 07/02/18 # Bowel Movements 2 0 Narrative: awake and alert, no acute distress, speech clear anicteric sclerae no nuchal rigidity lungs- no rale, no wheezes regular rhythm abdomen soft, nontender, good bowel sounds, no guarding, no rigidity extremities no edema neuro exam- unremarkable Results - Labs CBC & Chem 7: 07/02/18 15:03 07/04/18 10:40 Laboratory Results - last 24 hr 07/06/18 06:19 Plt Funct P2Y12 Units 256 - Procedures cardiac cath 07/02- Assessment and Plan - Plan 73-year-old male Acute CAD, STEMI S/P cath with 3 V disease Hypertension HYperlipidemia -Continue aspirin lisinopril metoprolol, statins, amlodipine Cardiology following Cardiovascular surgery ff- plan for CABG - tomorrow Left upper quadrant pain- resolved -CMP, lipase= unremarkable - CT of the abdomen- unremarakbel Tobacco abuse 2 packs per day History of left lobectomy due to lung cancer - Patient counseled extensively on smoking cessation Back pain- low - per patient chronic - Lortab for back pain Constipation - got dulcolax last evening - pericolace x 1 today Encourage up and ambulation Lovenox 30 mg SQ daily for DVT prophylaxis
--- NOTE | 2018-07-06 12:04 | P.PNCA ---
Subjective Interval history: denies chest pain Physical Exam Vital signs: Vital Signs 07/05/18 13:00 07/05/18 13:27 07/05/18 13:32 Temperature Pulse Rate 56 L 58 L Respiratory Rate 16 Blood Pressure Pulse Oximetry 98 07/05/18 14:00 07/05/18 15:00 07/05/18 16:00 Temperature 97.7 F Pulse Rate 58 L 56 L 62 Respiratory Rate 16 Blood Pressure 120/70 Pulse Oximetry 97 07/05/18 17:00 07/05/18 18:00 07/05/18 19:00 Temperature Pulse Rate 66 62 64 Respiratory Rate Blood Pressure Pulse Oximetry 07/05/18 20:00 07/05/18 20:59 07/05/18 21:00 Temperature 97 F L Pulse Rate 60 62 62 Respiratory Rate 16 16 Blood Pressure 115/46 L Pulse Oximetry 98 07/05/18 21:21 07/05/18 22:00 07/05/18 23:00 Temperature Pulse Rate 70 55 L Respiratory Rate 18 Blood Pressure Pulse Oximetry 07/05/18 23:27 07/05/18 23:52 07/06/18 00:00 Temperature Pulse Rate 71 57 L 56 L Respiratory Rate 18 16 Blood Pressure 121/55 L Pulse Oximetry 95 07/06/18 01:00 07/06/18 02:00 07/06/18 03:00 Temperature Pulse Rate 56 L 56 L 59 L Respiratory Rate Blood Pressure Pulse Oximetry 07/06/18 04:00 07/06/18 05:00 07/06/18 05:06 Temperature Pulse Rate 52 L 54 L Respiratory Rate 16 Blood Pressure Pulse Oximetry 07/06/18 05:09 07/06/18 06:00 07/06/18 07:00 Temperature Pulse Rate 59 L 56 L 64 Respiratory Rate 16 Blood Pressure 132/60 Pulse Oximetry 97 07/06/18 07:55 07/06/18 08:00 07/06/18 11:00 Temperature 97.8 F Pulse Rate 56 L 62 54 L Respiratory Rate 16 18 Blood Pressure 127/63 Pulse Oximetry 97 99 Intake & Output 07/05/18 07/06/18 07/06/18 18:59 06:59 18:59 Intake Total 1060 / 1060 480 / 480 Output Total 1000 / 1000 1250 / 1250 Balance 60 / 60 -770 / -770 Weight 72.6 kg Intake: Oral 1060 / 1060 480 / 480 Output: Urine 1000 / 1000 1250 / 1250 Other: Date of Last Bowel Movement 07/05/18 07/02/18 07/02/18 # Bowel Movements 2 0 Assessment and Plan - Assessment (1) Unstable angina Code(s): I20.0 - Unstable angina Status: Acute (2) Tobacco abuse Code(s): Z72.0 - Tobacco use Status: Acute (3) CAD (coronary artery disease), [place] coronary artery Code(s): I25.10 - Atherosclerotic heart disease of [place] coronary artery without angina pectoris Status: Acute - Plan 1.) Severe 3 vessel cad - plavix held, cabg when platelet function adequate, echo ef wnl and carotid us canceled, continue aspirin, lipitor, lopressor, lisinopril; patient strongly advised to stop smoking (3) CAD (coronary artery disease), [place] coronary artery Qualifiers: [place] vs. transplanted heart: [place] heart
[2018-07-07] MEDS ORDERED: Chlorhexidine Gluconate 2% 1 Pack (2 Cloths) TOPICAL ONE (02:51)
[2018-07-07] MEDS ORDERED: Sodium Chlor 0.9% Inj 500 ML IV.SIG SCH (03:00)
[2018-07-07] MEDS: Metoprolol Tartrate 50 MG Tablet PO SCH ×3 (05:00→22:24)
[2018-07-07] MEDS ORDERED: Heparin - SQ 10,000 UNITS/ML Vial ONE ×2 (06:15→19:17)
[2018-07-07] MEDS ORDERED: Sodium Chlor 0.9% Inj 500 ML IV.SIG ONE (07:08)
[2018-07-07] MEDS ORDERED: Sodium Bicarbonate 8.4% Inj 50 MEQ/50 ML Syringe IV.CONT ONE (07:08)
[2018-07-07] MEDS ORDERED: Sodium Chlor 0.9% Inj 250 ML IV.SIG ONE (07:08)
[2018-07-07] MEDS ORDERED: Protamine Sulfate Inj 50 MG/5 ML Vial IV.CONT ONE (07:08)
[2018-07-07] MEDS ORDERED: Normosol-R pH 7.4 Inj 1,000 ML IV.CONT ONE (07:08)
[2018-07-07] MEDS ORDERED: Phenylephrine/NS 1000 MCG/10ML Syringe IV.PUSH ONE (07:08)
[2018-07-07] MEDS ORDERED: Glycopyrrolate 0.2 MG/ML Vial IV.PUSH ONE (07:08)
[2018-07-07] MEDS ORDERED: Sod Chloride 0.9% Inj 1,000 ML IV.SIG ONE (07:08)
[2018-07-07] MEDS ORDERED: Heparin - SQ 10,000 UNITS/ML Vial OTHER ONE (07:08)
[2018-07-07] MEDS ORDERED: Calcium Chloride Inj 1 GM/10 ML Syringe IV.CONT ONE (07:08)
[2018-07-07] MEDS: Sodium Chloride 0.9% Irr Bot 500 ML, ceFAZolin Inj 500 MG IRRIGATION SCH ×4 (09:03→20:30)
--- NOTE | 2018-07-07 09:07 | P.PNADD ---
Addendum to Inpatient Note Reason for Addendum: Additional Documentation (In OR for CABG. CVt will be the attending after surgery)
[2018-07-07] MEDS ORDERED: Protamine Sulfate Inj 50 MG/5 ML Vial ONE (10:46)
[2018-07-07] MEDS ORDERED: Acetaminophen 325 MG Tablet PO PRN (11:50)
[2018-07-07] MEDS ORDERED: Dextrose 50% in Water 50 ML Vial IV.PUSH PRN (11:50)
[2018-07-07] MEDS ORDERED: Morphine Sulfate Inj 2 MG/ML Vial IV.PUSH PRN (11:50)
[2018-07-07] MEDS ORDERED: Post-op Orders (for Pharmacy) OTHER STA (11:50)
[2018-07-07] MEDS ORDERED: Acetaminophen 650 MG Supp RECTAL PRN (11:50)
[2018-07-07] MEDS ORDERED: Magnesium Sulfate Inj 2 GM in Sodium Chlor 0.9% Inj 96 ML IV.SIG PRN ×4 (11:50)
[2018-07-07] MEDS ORDERED: Potassium Chlor 20 mEq Premix 20 MEQ/100 ML PIGGYBACK IV.SIG PRN ×3 (11:50)
[2018-07-07] MEDS ORDERED: Calcium Chloride Inj 1 GM in Sodium Chlor 0.9% Inj 100 ML IV.SIG PRN (11:50)
[2018-07-07] MEDS ORDERED: Insulin Regular (For Infusion) 100 UNIT in Sodium Chlor 0.9% Inj 99 ML IV.CONT PRN (11:50)
[2018-07-07] MEDS ORDERED: Phenylephrine Inj 40 MG in Sodium Chlor 0.9% Inj 496 ML IV.CONT PRN (11:50)
[2018-07-07] MEDS ORDERED: Metoprolol Inj 5 MG/5 ML Vial IV.PUSH PRN (11:50)
[2018-07-07] MEDS ORDERED: RESP: Racemic Epinephrine 2.25% 0.5 ML Neb NEB ONE (11:50)
[2018-07-07] MEDS ORDERED: Albumin Human 25% Inj 0 ML IV.SIG ONE (11:51)
[2018-07-07] MEDS ORDERED: Albumin Human 25% Inj 50 ML IV.SIG ONE (11:52)
--- NOTE | 2018-07-07 12:00 | P.OP ---
Date of procedure: 07/07/18 Anesthesia: GETA Surgeon: Estefanía Bauer MD Operation and Findings: PREPROCEDURE DIAGNOSES 1. Severe Multi Vessel Coronary Artery Disease. 2. Acute myocardial infarction 3. Lung cancer status post left upper lobectomy 4. Moderate left ventricular dysfunction POSTPROCEDURE DIAGNOSES Same SURGICAL PROCEDURE 1. Urgent Off-pump Coronary Artery Bypass Grafting x 3 with Left Internal Mammary Artery (JOSEPH) to Left Anterior Descending (LAD), reverse saphenous vein graft to diagonal 1 branch of the LAD, reverse saphenous vein graft to the Posterior Descending branch of the Right Coronary artery 2. Left leg Endoscopic Vein [place] 3. Intraoperative Vein Mapping. SURGEON Estefanía Bauer MD WINDOWS SYSTEM ADMIN SHAGUFTA Valdovinos ANESTHESIA General endotracheal FEEDER WORKER POWER UNIT OPERATOR SUDHA San MD PREPARATION [employer]. COUNTS Needle, sponge, and instrument counts were correct. DRAINS Two 32-Emirati mediastinal tubes. COMPLICATIONS None. INDICATIONS FOR PROCEDURE The patient is a 73-year-old presenting with chest pain. Patient was noted to have severe multi vessel coronary artery disease. The patient is being brought to the operating room for surgical revascularization therapy. PROCEDURE Patient was brought to the operating room and placed supine on the OR table. Following the induction of adequate general endotracheal anesthesia and placement of appropriate monitoring devices, intraoperative vein mapping was performed which revealed good-caliber conduit in bilateral lower extremities. The patient was then prepped and draped in standard sterile fashion. Next, 2500 units of intravenous heparin was given. The left greater saphenous vein was harvested endoscopically. This appeared to be a useable-caliber conduit. Simultaneously, a median sternotomy was performed and the left internal mammary artery dissected free off the posterior sternal table. Of note, there were dense adhesions in the left chest from his previous upper lobectomy making the JOSEPH harvest somewhat tedious. The patient was systemically heparinized and anticoagulation monitored by serial ACT measurements. The internal mammary artery had excellent pulsatile flow in it and was a good-caliber conduit. The pericardium was then divided in the midline, the cradle created and targets analyzed. At this point, all anastomoses were performed in a beating-heart fashion using the [employer] stabilizing system. The left internal mammary artery was anastomosed to the distal LAD (1.5 mm) in an end-to-side fashion using 7-0 Prolene. Segment of saphenous vein graft was then anastomosed to the D1 (1.5 mm ) in an end-to-side fashion using 7-0 Prolene. The final segment was anastomosed to the RPDA to mm) in an end-to-side fashion using 7-0 Prolene. 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 The proximal anastomoses were then constructed to the ascending aorta in a running manner using 6-0 Prolene. All anastomotic sites were inspected and appeared to be hemostatic and patent. Protamine solution was given. Strict hemostasis was assured. The closure was undertaken. 2 chest tubes were placed. The pericardium was reapproximated in the midline. The sternum was approximated using sternal wires. The muscular and fascial layer were then closed in 3 layers. The endoscopic vein harvest site was closed in 2 layers. The patient tolerated the procedure well and was transferred to CVICU in stable condition.
--- NOTE | 2018-07-07 12:10 | P.PNCV ---
- Note Subjective/Hospital Course: 73-year-old gentleman with a known history of coronary artery disease status post previous acute myocardial infarction in 2007 at which time he underwent PCI with stenting, who now presents with progressive symptoms of left upper quadrant abdominal pain with associated substernal chest pressure. Patient was seen in the emergency department and evaluated with further workup including EKG and enzymes and subsequently underwent a coronary angiogram today which revealed significant three-vessel coronary artery disease with heavily calcified coronary vessels. EF 55% Medical History Medical History: Medical History (Last Updated 07/02/18 @ 16:04 by Estefanía Bauer MD) Lung cancer (Acute) HTN (hypertension) (Acute) Surgical History: H/O heart artery stent, H/O hernia repair, History of lobectomy of lung, Hx of cardiac cath 07/03 Clinically and hemodynamically stable Denies chest pain or anginal equivalent symptoms Platelet function remains abnormal secondary to Plavix intake Surgery likely Saturday. Will repeat Plavix verify 07/04 Clinical stable. Denies any chest pain. Does complain of moderate to severe left flank pain. Denies nausea or vomiting Exam: Abdomen is tender to deep palpation in the left upper quadrant. No rebound or guarding. Normoactive bowel sounds. Nondistended. Planned cardiac surgery for Saturday if platelet function assay is within normal limits Needs further evaluation of abdominal pain to exclude a more urgent etiology. We will continue to follow with you. 07/[address] results noted. No acute pathology Plavix verify assay in the morning with possible surgery to follow 07/07 surgery: Urgent Off-pump Coronary Artery Bypass Grafting x 3 with Left Internal Mammary Artery (JOSEPH) to Left Anterior Descending (LAD), reverse saphenous vein graft to diagonal 1 branch of the LAD, reverse saphenous vein graft to the Posterior Descending branch of the Right Coronary artery, Left leg Endoscopic Vein [place], Objective: Vital Signs - 24 hr 07/06/18 13:00 07/06/18 14:00 07/06/18 15:00 Temperature Pulse Rate 56 L 58 L 50 L Respiratory Rate Blood Pressure Pulse Oximetry 07/06/18 16:00 07/06/18 17:00 07/06/18 18:00 Temperature 97.5 F L Pulse Rate 52 L 55 L 62 Respiratory Rate 18 Blood Pressure 124/62 Pulse Oximetry 97 07/06/18 19:30 07/06/18 20:00 07/06/18 20:36 Temperature 97.6 F Pulse Rate 65 60 Respiratory Rate 18 18 Blood Pressure 131/72 Pulse Oximetry 97 07/06/18 21:00 07/06/18 21:41 07/06/18 22:00 Temperature Pulse Rate 56 L 55 L 53 L Respiratory Rate 20 Blood Pressure Pulse Oximetry 07/06/18 23:00 07/07/18 00:00 07/07/18 01:00 Temperature 97.6 F Pulse Rate 50 L 51 L 58 L Respiratory Rate 16 Blood Pressure 150/82 H Pulse Oximetry 95 07/07/18 01:19 07/07/18 02:00 07/07/18 03:00 Temperature Pulse Rate 50 L 55 L Respiratory Rate 16 Blood Pressure Pulse Oximetry 07/07/18 03:31 07/07/18 04:00 07/07/18 05:00 Temperature 97.6 F Pulse Rate 56 L 66 59 L Respiratory Rate 12 16 Blood Pressure 145/65 H Pulse Oximetry 95 07/07/18 06:00 Temperature Pulse Rate 56 L Respiratory Rate Blood Pressure Pulse Oximetry Labs: Laboratory Results - last 12 hr 07/06/18 09:26 MTS Gel Crossmatch See Detail Result Diagrams: 07/02/18 15:03 07/04/18 10:40 - Plan (1) CAD (coronary artery disease), [place] coronary artery (1) CAD (coronary artery disease), [place] coronary artery Qualifiers: [place] vs. transplanted heart: [place] heart
--- NOTE | 2018-07-07 12:14 | P.DCO ---
- Diagnosis (2) CAD (coronary artery disease), [place] coronary artery - Home Health Nursing Order: Medical education, Signs/symptoms of disease process, Wound care and dressing changes, Nursing assessment with vital signs Instructions: Heart and Vascular Surgery patients *Special attention to sternal dressing Mandatory frequency Assess and evaluation, 4 days in a row The next week 3X week 2 times a week for 4 weeks 1 time a week for 5 weeks Schedule Heart and Vascular patients for full 60 day certification period Initial visit Review Open Heart Surgery Discharge Instructions (Sternal precautions, Activity, Elastic hose, Incision care, Driving, Incentive spirometry, Smoking, [place], Work and other) Need Betadine to paint incision Medication reconciliation Importance of follow up care/ check on appointments Make calendar record temperature daily When to call [facility] nurse, review instructions, phone list Incentive Spirometry, demonstration Visit 1- Begin discharge instruction for patient family and/ or caregiver using teach back method- Signs and symptoms of infection Disease characteristics Medicines and side effects Foods and nutrition/ appetite Infection control/ hand washing/ hygiene Visit 2- Continue teaching Discharge instructions- include additional information on smoking cessation , sternal dressing (sternal vac) Visit 3- Continue teaching- Cough and deep breathing, incision monitoring. Choose my plate Visit 4- Continue teaching- Discuss limitations Discuss how they are feeling Discuss progress toward goals Remaining visits- continue teaching and monitoring For any questions please call : Saturday 8am-5pm Heart & Vascular Surgery Office ( Dr. Bauer & Dr. Read), After Hours / Nights (5pm -8am) Weekends and Holidays Please call [facility] Cardiac Intermediate Care Unit (CIC) Charge Nurse PREVENA Single Use Negative Wound Therapy System Caregiver Instruction Sheet 1. A Prevena dressing system was applied to the chest incision during surgery , to promote wound healing. It works via a suction device (negative pressure wound therapy) to remove low to moderate levels of exudate (drainage) and infectious materials. We recommend that the device stay in place for up to seven days, from day of surgery. 2. Day of Surgery___/08/14 Day of Removal / 3. The dressing should only be removed by a health wound care rn. Please arrange removal of device to coincide with Home Health visit and or with Nursing staff at Rehab 4. If skin reddening or irritation of skin occurs, or excessive drainage, please notify the Cardiovascular Surgeons office at [phone]. 5. Light showering is permissible; however the pump should be disconnected and placed in safe location, where it will not get wet. The dressing should not be exposed to direct spray or submerged in water. No bath tub / shower only. Ensure the end of the tubing attached to the dressing is facing down so that water does not enter the top of the tube. 6. To remove Prevena dressing: press purple button to turn off device / remove the suction. Then disconnect the tubing from the pump. The fixation strips should be stretched away from the skin and the dressing lifted at one corner and peeled back until it has been fully removed. 7. After removal, it is ok to shower daily using liquid dial soap and clean wash cloth, rinse and pat dry, and leave incision open to air dry. For any concerns regarding Prevena dressing, and or wounds, please contact Tatiana Maloney, patient navigator at [phone] or notify the Cardiovascular Surgeons office at [phone]. Incentive spirometry Q1 hr x 10, while awake, also use acapella device hourly whole awake Sternal Breast Bone Precautions: NO pushing or pulling, ( pt must use sternal pillow to support chest with all activities and with coughing ( takes up to 3 months breast bone to heal ) All females to wear sternal bra , launder as needed Daily incision care: ok to shower daily, no tub bath. Wash all incisions with liquid dial soap, clean wash cloth to each site, rinse and pat dry. Observe for any signs of infection, such as drainage which is dark yellow, voss, green or foul smelling. Immediately report to the surgeon any drainage from the chest incision, or legs, and for any abnormal drainage from the chest tube sites. Notify surgeon if any temp >101.5 degrees F. When specialty dressing removed/ or if you do not have one, continue to shower daily as above, then rinse and pat incision dry and paint with betadine daily x 5 days. Allow steri strips to fall off if you have any. Avoid lotions, creams, salves, oils, etc. for the first month Please see attached forms for additional instructions regarding post Open Heart specialty wound vacuum dressings. TOBY or Prevena , Dressing to be removed by Nursing staff on __07/14/18 F/U appointment: as per DC instructions: PCP in 2 weeks, CV surgeon 2 weeks, Cpr Ambulance Driver 3-4 weeks For any questions regarding incisions/ dressing / meds / post op care or above Symptoms, Saturday 8am-5pm Heart & Vascular Surgery Office ( Dr. Bauer & Dr. Read), After Hours / Nights (5pm -8am) Weekends and Holidays Please call [facility] Cardiac Intermediate Care Unit (CIC) Charge Nurse - Certification I have seen patient Karie Ferreira on 07/07/18. My clinical findings support the need for the requested home health care services because: Deconditioned with increased weakness I certify that my clinical findings support that this patient is homebound because: Post-op weakness (2) CAD (coronary artery disease), [place] coronary artery Qualifiers: [place] vs. transplanted heart: [place] heart
[2018-07-07] MEDS: amLODIPine 5 MG Tablet PO SCH (12:38)
[2018-07-07 12:43] LABS: Baso # (Auto) 0.1 th/mm3 (0.0-0.2); Baso % (Auto) 0.5 % (0.0-2.0); Eos # (Auto) 0.2 th/mm3 (0.0-0.4); Eos % (Auto) 1.2 % (0.0-4.0); Hematocrit 28.2 % (39.0-51.0); Hemoglobin 9.5 gm/dL (13.0-17.0); Lymph # (Auto) 1.8 th/mm3 (1.0-4.8); Lymph % (Auto) 9.4 % (9.0-44.0); Mean Corpuscular HGB Conc 33.7 % (32.0-36.0); Mean Corpuscular Hemoglobin 29.2 pg (27.0-34.0); Mean Corpuscular Volume 86.8 fL (80.0-100.0); Mean Platelet Volume 10.9 fL (7.0-11.0); Mono # (Auto) 1.2 th/mm3 (0.0-0.9); Mono % (Auto) 6.2 % (0.0-8.0); Neut # (Auto) 15.9 th/mm3 (1.8-7.7); Neut % (Auto) 82.7 % (16.0-70.0); Platelet Count 136 th/mm3 (150-450); Red Blood Count 3.25 mil/mm3 (4.50-5.90); Red Cell Distribution Width 13.7 % (11.6-17.2); White Blood Count 19.3 th/mm3 (4.0-11.0)
[2018-07-07] MEDS: Dexmedetomidine Inj 200 MCG in Sodium Chlor 0.9% Inj 48 ML IV.CONT PRN ×2 (12:45→18:45)
[2018-07-07] MEDS ORDERED: fentaNYL Citrate Inj 100 MCG/2 ML Ampul ONE (12:48)
[2018-07-07 12:53] LABS: Activated Partial Thrombo Time 26.4 sec (24.3-30.1); INR 1.2 Ratio
[2018-07-07] MEDS: Enoxaparin Inj 30 MG/0.3 ML Syringe SQ SCH (13:00)
[2018-07-07] MEDS: Lisinopril 20 MG Tablet PO SCH (13:00)
[2018-07-07] MEDS ORDERED: fentaNYL Citrate Inj 250 MCG/5 ML Ampul ONE ×2 (13:14→18:51)
--- NOTE | 2018-07-07 13:18 | XR ---
EXAM DATE: 07/07/2018 1:04 PM EDT AGE/SEX: 73 years / Male INDICATIONS: Post CABG. CLINICAL DATA: This is the patient's initial encounter. Patient reports that signs and symptoms have been present for 1 day and indicates a pain score of Nonresponsive. MEDICAL/SURGICAL HISTORY: . Chronic obstructive pulmonary disease. Cardiovascular disease . [place] ronary artery stent. Hernia repair. Lobectomy of lung. Cardiac catheterization. COMPARISON: [facility] – [place], CHEST 2V PA&LAT, 07/02/2018. . FINDINGS: Postsurgical changes following open heart surgery are noted. Endotracheal tube, left thoracostomy tube, mediastinal drain and right jugular central catheter in sa tisfactory position. Nasogastric tube extends into the upper chest in the level the lakia. Acute airspace disease has developed within the left upper lobe. There is no evidence of pneumothorax . Right lung remains clear CONCLUSION: 1. Nasogastric tube extends to the level the lakia 2. Endotracheal tube, left thoracostomy tube, mediastinal drain and central venous catheter are in p chyna position. 3. Left upper lobe airspace disease status post CABG. Electronically signed by: Chris Paul MD 07/07/2018 1:16 PM EDT
[2018-07-07] MEDS: fentaNYL Citrate Inj 100 MCG/2 ML Ampul IV.PUSH PRN (13:20)
[2018-07-07] MEDS: Albumin Human 5% Inj 250 ML IV.SIG PRN ×2 (13:21→18:44)
[2018-07-07] MEDS: Ketorolac Inj 30 MG/ML (IVP) Vial IV.PUSH PRN (13:31)
[2018-07-07] MEDS: Calcium Chloride Inj 1 GM/10 ML Syringe IV.PUSH PRN ×3 (14:11→18:48)
[2018-07-07] MEDS ORDERED: Midazolam Inj 5 MG/ML 1 ML Vial ONE ×4 (14:22→18:51)
--- NOTE | 2018-07-07 14:39 | P.PNCA ---
Subjective Interval history: intubated, sedated Physical Exam Vital signs: Vital Signs 07/06/18 15:00 07/06/18 16:00 07/06/18 17:00 Temperature 97.5 F L Pulse Rate 50 L 52 L 55 L Respiratory Rate 18 Blood Pressure 124/62 Pulse Oximetry 97 07/06/18 18:00 07/06/18 19:30 07/06/18 20:00 Temperature 97.6 F Pulse Rate 62 65 60 Respiratory Rate 18 Blood Pressure 131/72 Pulse Oximetry 97 07/06/18 20:36 07/06/18 21:00 07/06/18 21:41 Temperature Pulse Rate 56 L 55 L Respiratory Rate 18 20 Blood Pressure Pulse Oximetry 07/06/18 22:00 07/06/18 23:00 07/07/18 00:00 Temperature 97.6 F Pulse Rate 53 L 50 L 51 L Respiratory Rate 16 Blood Pressure 150/82 H Pulse Oximetry 95 07/07/18 01:00 07/07/18 01:19 07/07/18 02:00 Temperature Pulse Rate 58 L 50 L Respiratory Rate 16 Blood Pressure Pulse Oximetry 07/07/18 03:00 07/07/18 03:31 07/07/18 04:00 Temperature 97.6 F Pulse Rate 55 L 56 L 66 Respiratory Rate 12 16 Blood Pressure 145/65 H Pulse Oximetry 95 07/07/18 05:00 07/07/18 06:00 07/07/18 12:15 Temperature Pulse Rate 59 L 56 L Respiratory Rate 8 L Blood Pressure Pulse Oximetry 100 07/07/18 13:20 Temperature Pulse Rate Respiratory Rate 9 L Blood Pressure Pulse Oximetry Intake & Output 07/06/18 07/07/18 07/07/18 18:59 06:59 18:59 Intake Total 1400 / 1400 240 / 240 2850 / 2850 Output Total 1300 / 1300 700 / 700 Balance 100 / 100 240 / 240 2150 / 2150 Weight 71 kg Intake: IV 1100 / 1100 LR 1000 mL Inj 1,000 ML @ 30 1000 / 1000 mls/hr IV.SIG .Q24H SHAHRAM Rx#: [id number] Ancef Inj 2,000 MG In NS Inj 80 100 / 100 ML @ 200 mls/hr IV.SIG LITERARY AGENT SHAHRAM Rx#:[id number] Oral 1400 / 1400 240 / 240 Anesthesia Amount 1500 / 1500 Cell Saver Amount 250 / 250 Output: Urine 1300 / 1300 Estimated Blood Loss 500 / 500 Urine Amount (Catheter) 200 / 200 Indwelling Temp Sensing 200 / 200 Catheter Other: # Voids 4 Date of Last Bowel Movement 07/02/18 - Urinary Catheter Management Indwelling Temp Sensing Catheter Cath placed during this visit: yes Reason for continuing: Hourly intake/output Insertion date: 07/07/18 Insertion time: 07:30 Assessment and Plan - Assessment (1) Unstable angina Code(s): I20.0 - Unstable angina Status: Acute (2) Tobacco abuse Code(s): Z72.0 - Tobacco use Status: Acute (3) CAD (coronary artery disease), [place] coronary artery Code(s): I25.10 - Atherosclerotic heart disease of [place] coronary artery without angina pectoris Status: Acute - Plan 1.) Severe 3 vessel cad - pod#0 cabg, may need transfusion due to anemia and hypotension, d/w nurse @ bedside, patient strongly advised to stop smoking (3) CAD (coronary artery disease), [place] coronary artery Qualifiers: [place] vs. transplanted heart: [place] heart
[2018-07-07] MEDS ORDERED: ceFAZolin Inj 2,000 MG in Sodium Chlor 0.9% Inj 80 ML IV.SIG SCH (16:00)
[2018-07-07] MEDS ORDERED: Sodium Bicarbonate 8.4% Inj 50 MEQ/50 ML Syringe ONE ×3 (16:48→18:46)
[2018-07-07 17:02] LABS: Baso # (Auto) 0.1 th/mm3 (0.0-0.2); Baso % (Auto) 0.4 % (0.0-2.0); Eos % (Auto) 0.1 % (0.0-4.0); Hematocrit 29.4 % (39.0-51.0); Lymph # (Auto) 1.1 th/mm3 (1.0-4.8); Mean Corpuscular HGB Conc 33.9 % (32.0-36.0); Mean Corpuscular Hemoglobin 29.8 pg (27.0-34.0); Mean Corpuscular Volume 87.9 fL (80.0-100.0); Mean Platelet Volume 11.2 fL (7.0-11.0); Mono # (Auto) 1.7 th/mm3 (0.0-0.9); Neut # (Auto) 16.1 th/mm3 (1.8-7.7); Neut % (Auto) 84.5 % (16.0-70.0); Platelet Count 130 th/mm3 (150-450); Red Blood Count 3.35 mil/mm3 (4.50-5.90); Red Cell Distribution Width 14.1 % (11.6-17.2); White Blood Count 19.1 th/mm3 (4.0-11.0)
[2018-07-07] MEDS ORDERED: DOPamine 400 MG/250 ML Premix 400 MG/250 ML BAG IV.CONT ONE (17:08)
[2018-07-07 17:10] LABS: Activated Partial Thrombo Time 33.4 sec (24.3-30.1); INR 1.2 Ratio; Prothrombin Time 11.9 sec (9.8-11.6)
[2018-07-07] MEDS ORDERED: Cisatracurium Inj 20 MG/10 ML Vial ONE (18:05)
[2018-07-07] MEDS ORDERED: DOPamine 800 MG/500 ML Premix 800 MG/500 ML PLAST..BAG IV.CONT PRN ×2 (19:00→21:35)
--- NOTE | 2018-07-07 19:02 | XR ---
EXAM DATE: 07/07/2018 6:37 PM EDT AGE/SEX: 73 years / Male INDICATIONS: Chest pain. Post chest tube placement, Right. CLINICAL DATA: This is the patient's subsequent encounter. Patient reports that signs and symptoms h ave been present for 1 day and indicates a pain score of Nonresponsive. MEDICAL/SURGICAL HISTORY: . Chronic obstructive pulmonary disease. Cardiovascular disease . CA BG. Coronary artery stent. Hernia repair. Lobectomy of lung. Cardiac catheterization. [place] [facility] [place]. . FINDINGS: A single AP portable supine view of the chest was obtained and again demonstrates the patient is stat us post median sternotomy. Endotracheal tube remains in place with tip approximately 4 cm above the c [place]. There is a mediastinal chest tube and left-sided chest tube in place with no pneumothorax. The re is a right internal jugular central venous line again noted. There is a large dense catheter now n oted which appears to extend through the esophagus into the stomach. The heart size is at the upper l imits of normal. There are no new confluent infiltrates or effusions. The patient is mildly rotated t o the left. Multiple overlying electrocardiogram leads. CONCLUSION: 1. A mediastinal chest tube and left-sided chest tube are again noted with no new chest tube identif ied. There is no pneumothorax. 2. New large dense catheter now noted which appears to extend through the esophagus into the stomach . 3. Patient remains intubated and the right internal jugular central venous line remains in place. 4. No new infiltrates or effusions. Electronically signed by: Rigo Evans MD 07/07/2018 7:01 PM EDT
--- NOTE | 2018-07-07 19:10 | P.CONCC ---
History of Present Illness Service: Critical care medicine Consult date: 07/07/18 Requesting Physician: Estefanía Bauer Reason for Consult: hemorrhagic shock Primary Care Provider: UNKNOWN Chief Complaint: Chest pain History of Present Illness: 73yM with h/o COPD and lung cancer s/p left upper lobectomy s/p STEMI and now taken to OR for off pump CABG x 2 (JOSEPH-->LAD, SVG-->diag). unable to graft circumflex due to small calcified vessel. immediately post-op with significant mediastinal chest tube bleeding. 1L EBL from chest tube in 4 hours. discussed with surgeon. no clots evident in chest tube. gave 4 units prbc, 2 ffp, 1 cryo. recheck labs, hbg did not change substantially but plt 130k, fibrinogen > 200, inr 1.2. remained hypotensive. placed VIVIANA emergently: very hypovolemic LV. good biventricular function. no evidence of significant tamponade physiology. large left pleural effusion which has echogenic appearance of blood. continues to be significantly hypovolemic with falling CVP despite volume resuscitation. decision made to take back to OR. on phenylephrine, dopamine, epinephrine. initially was bradycardic- placed transvenous pacer to increase HR, but RV pacing significantly altered his contractility and he became unstable with this. ROS unobtainable due to clinical condition and remainder of the history determined from Dr. Bauer at bedside due to the critical nature of the consult. Review of Systems unobtainable due to endotracheal tube, unobtainable due to mental condition PMFSH - History History Provided By: Medical Record - Medical History Medical History: Medical History (Last Reviewed 07/07/18 @ 19:03 by Dutch Guan MD) HTN (hypertension) Lung cancer - Surgical History Surgical History: Surgical History (Last Reviewed 07/07/18 @ 19:03 by Dutch Guan MD) H/O umbilical hernia repair H/O heart artery stent H/O hernia repair History of lobectomy of lung Hx of cardiac cath - Social History I have reviewed the patient's Social History: Yes - Tobacco History Second Hand Smoke Exposure: Yes Tobacco Use In Past 30 Days: Yes Smoking Status: Heavy tobacco smoker Tobacco Type: Cigarettes - Alcohol History How Often Do You Have a Drink Containing Alcohol: Never - Substance Use History Substance History: Past History - Substance Use Type Marijuana Last Used: 25 years ago - Travel History Recent Travel in the [place] Within the Last 8 Weeks: No Recent Travel Out of the Country Within the Last 8 Weeks: No - Immunization History Tetanus Immunization: Unsure Hx Influenza Vaccine This Season: No Medications and Allergies Active Medications: Active Medications Acetaminophen (Tylenol) 650 mg PO Q4H PRN PRN Reason: FEVER > 101 F Acetaminophen (Tylenol Supp) 650 mg RECTAL Q4H PRN PRN Reason: FEVER > 101 F Hydrocodone Bitart/Acetaminophen (Ossian 5/325) 1 tab PO Q3H PRN PRN Reason: PAIN SCALE 1 TO 5 Albuterol (Duoneb Neb (Prn)) 1 ampul NEB Q2HR NEB PRN PRN Reason: WHEEZING Albuterol (Duoneb Neb (Javi)) 1 ampul NEB Q6HR NEB [facility] Last Admin: 07/07/18 16:13 Dose: 1 ampul Amiodarone HCl (Cordarone) 200 mg PO Q12HR [facility] Amlodipine Besylate (Norvasc) 5 mg PO DAILY [facility] Last Admin: 07/07/18 12:38 Dose: Not Given Aspirin (Aspirin Chew) 81 mg PO DAILY [facility] Last Admin: 07/07/18 12:38 Dose: Not Given Atorvastatin Calcium (Lipitor) 40 mg PO HS [facility] Last Admin: 07/06/18 20:38 Dose: 40 mg Bisacodyl (Dulcolax Ec) 10 mg PO DAILY PRN PRN Reason: CONSTIPATION Last Admin: 07/06/18 19:19 Dose: 10 mg Calcium Chloride (Calcium Chloride Inj) 0.5 gm IV.PUSH UNSCH PRN PRN Reason: SEE LABEL COMMENTS Last Admin: 07/07/18 18:48 Dose: 0.5 gm Chlorhexidine Gluconate (Hibiclens 4% Topical) 1 applicatio TOPICAL WASTE AND BATTING WASTE [facility] Stop: 07/08/18 13:52 Clopidogrel Bisulfate (Plavix) 75 mg PO DAILY [facility] Sodium Chloride 77.5 ml/Papaverine HCl 60 mg/Nitroglycerin 100 mcg/Diltiazem HCl 100 mg 0 ml IRRIGATION WASTE AND BATTING WASTE [facility] Stop: 07/08/18 13:52 Last Admin: 07/07/18 09:02 Dose: 1 irrig.soln Sodium Chloride 500 ml/ (Cefazolin Sodium 500 mg) 0 ml IRRIGATION WASTE AND BATTING WASTE [facility] Stop: 07/08/18 13:53 Last Admin: 07/07/18 09:03 Dose: 1 irrig.soln Dextrose (D50w Vial) 50 ml IV.PUSH UNSCH PRN PRN Reason: PER HYPOGLYCEMIA PROTOCOL Fentanyl Citrate (Fentanyl Inj) 25 mcg IV.PUSH Q1H PRN PRN Reason: BREAKTHROUGH PAIN Last Admin: 07/07/18 13:20 Dose: 25 mcg Sodium Chloride (Ns Inj) 500 mls @ 30 mls/hr IV.SIG .Q10H JAVI Last Admin: 07/07/18 04:55 Dose: Not Given Acetaminophen (Ofirmev Inj) 1,000 mg in 100 mls @ 400 mls/hr IV.SIG Q6H JAVI Stop: 07/08/18 07:14 Last Infusion: 07/07/18 14:53 Dose: Infused Calcium Chloride 1 gm/ Sodium (Chloride) 110 mls @ 100 mls/hr IV.SIG PRN PRN PRN Reason: SEE LABEL COMMENTS Cefazolin Sodium 2,000 mg/ (Sodium Chloride) 100 mls @ 200 mls/hr IV.SIG Q8H JAVI Stop: 07/09/18 00:29 Last Infusion: 07/07/18 18:00 Dose: Infused Dexmedetomidine HCl 200 mcg/ (Sodium Chloride) 50 mls @ 3.55 mls/hr IV.CONT TITRATE PRN; Protocol PRN Reason: Per Protocol Last Admin: 07/07/18 18:45 Dose: 0.5 mcg/kg/hr, 8.87 mls/hr Insulin Human Regular 100 unit (/ Sodium Chloride) 100 mls @ 3 mls/hr IV.CONT TITRATE PRN; Protocol PRN Reason: See Protocol Last Titration: 07/07/18 18:00 Dose: 8 units/hr, 8 mls/hr Lactated Ringer's (Lr 1000 Ml Inj) 500 mls @ 500 mls/hr IV.SIG .Q1H PRN PRN Reason: SEE LABEL COMMENTS Stop: 07/08/18 11:49 Last Infusion: 07/07/18 14:53 Dose: Infused Magnesium Sulfate Inj 2 gm/ (Sodium Chloride) 100 mls @ 50 mls/hr IV.SIG PRN PRN PRN Reason: SEE LABEL COMMENTS Phenylephrine HCl 40 mg/ (Sodium Chloride) 500 mls @ 30 mls/hr IV.CONT TITRATE PRN; Protocol PRN Reason: See Protocol Last Titration: 07/07/18 18:00 Dose: 60 mcg/min, 45 mls/hr Potassium Chloride (Kcl 20 Meq Premix Inj) 20 meq in 100 mls @ 50 mls/hr IV.SIG PRN PRN PRN Reason: SEE LABEL COMMENTS Last Infusion: 07/07/18 18:00 Dose: Infused Potassium Chloride (Kcl 20 Meq Premix Inj) 20 meq in 100 mls @ 50 mls/hr IV.SIG PRN PRN PRN Reason: SEE LABEL COMMENTS Potassium Chloride (Kcl 20 Meq Premix Inj) 20 meq in 100 mls @ 50 mls/hr IV.SIG PRN PRN PRN Reason: SEE LABEL COMMENTS Magnesium Sulfate Inj 2 gm/ (Sodium Chloride) 100 mls @ 50 mls/hr IV.SIG PRN PRN PRN Reason: SEE LABEL COMMENTS Dopamine HCl/Dextrose (Dopamine 800 Mg/500 Ml Premix) 800 mg in 500 mls @ 7.988 mls/hr IV.CONT TITRATE PRN; Protocol PRN Reason: Per Protocol Ketorolac Tromethamine (Toradol Inj) 15 mg IV.PUSH Q6H PRN PRN Reason: SEE LABEL COMMENTS Stop: 07/09/18 11:49 Last Admin: 07/07/18 13:31 Dose: 15 mg Meperidine HCl (Demerol Inj) 12.5 mg IV.PUSH Q4H PRN PRN Reason: SHIVERING Metoprolol Tartrate (Lopressor) 12.5 mg PO WASTE AND BATTING WASTE [facility] Stop: 07/08/18 13:53 Metoprolol Tartrate (Lopressor) 50 mg PO BID [facility] Last Admin: 07/07/18 12:38 Dose: Not Given Metoprolol Tartrate (Lopressor Inj) 2.5 mg IV.PUSH Q1H PRN PRN Reason: SEE LABEL COMMENTS Miscellaneous (Pill Splitter) 1 each OTHER UNSCH PRN PRN Reason: PILL SPLITTING Morphine Sulfate (Morphine Inj) 1 mg IV.PUSH Q10M PRN PRN Reason: PAIN SCALE 6 TO 10 Ondansetron HCl (Zofran Inj) 4 mg IV.PUSH Q6H PRN PRN Reason: NAUSEA OR VOMITING Pantoprazole Sodium (Protonix) 40 mg PO DAILY@06 JAVI Phenylephrine HCl (Neosynephrine Inj) 0.1 mg IV.PUSH UNSCH PRN PRN Reason: SEE LABEL COMMENTS Potassium Chloride (K-Dur) 20 meq PO UNSCH PRN PRN Reason: SEE LABEL COMMENTS Potassium Chloride (K-Dur) 40 meq PO UNSCH PRN PRN Reason: SEE LABEL COMMENTS Sodium Bicarbonate (Sodium Bicarbonate 8.4% Inj) 100 meq IV.PUSH UNSCH PRN PRN Reason: SEE LABEL COMMENTS Sodium Bicarbonate (Sodium Bicarbonate 8.4% Inj) 50 meq IV.PUSH UNSCH PRN PRN Reason: SEE LABEL COMMENTS Sodium Chloride (Ns Flush) 2 ml IV.FLUSH BID JAVI Last Admin: 07/07/18 12:40 Dose: Not Given Sodium Chloride (Ns Flush) 2 ml IV.FLUSH PRN PRN PRN Reason: FLUSH AFTER USING IV ACCESS Terbutaline Sulfate (Brethine Inj) 1 mg SQ ONCE PRN PRN Reason: Extravasation Terbutaline Sulfate (Brethine Inj) 1 mg SQ ONCE PRN PRN Reason: Extravasation Allergies Allergy/AdvReac Type Severity Reaction Status Date / Time naproxen Allergy Severe LOW BP, Verified 07/02/18 19:37 HIVES Home Medications Medication Instructions Recorded Confirmed Type amlodipine 10 mg PO DAILY 07/02/18 07/02/18 History aspirin 500 mg PO BID 07/02/18 07/02/18 History atorvastatin 80 mg PO DAILY 07/02/18 07/02/18 History clopidogrel [Plavix] 75 mg PO DAILY 07/02/18 07/02/18 History lisinopril 20 mg PO BID 07/02/18 07/02/18 History metoprolol tartrate 100 mg PO BID 07/02/18 07/02/18 History Physical Exam Vital signs: Vital Signs 07/06/18 19:30 07/06/18 20:00 07/06/18 20:36 Temperature 36.4 C Pulse Rate 65 60 Respiratory Rate 18 18 Blood Pressure 131/72 Pulse Oximetry 97 07/06/18 21:00 07/06/18 21:41 07/06/18 22:00 Temperature Pulse Rate 56 L 55 L 53 L Respiratory Rate 20 Blood Pressure Pulse Oximetry 07/06/18 23:00 07/07/18 00:00 07/07/18 01:00 Temperature 36.4 C Pulse Rate 50 L 51 L 58 L Respiratory Rate 16 Blood Pressure 150/82 H Pulse Oximetry 95 07/07/18 01:19 07/07/18 02:00 07/07/18 03:00 Temperature Pulse Rate 50 L 55 L Respiratory Rate 16 Blood Pressure Pulse Oximetry 07/07/18 03:31 07/07/18 04:00 07/07/18 05:00 Temperature 36.4 C Pulse Rate 56 L 66 59 L Respiratory Rate 12 16 Blood Pressure 145/65 H Pulse Oximetry 95 07/07/18 06:00 07/07/18 12:15 07/07/18 13:20 Temperature Pulse Rate 56 L Respiratory Rate 8 L 9 L Blood Pressure Pulse Oximetry 100 07/07/18 14:35 07/07/18 15:29 07/07/18 15:45 Temperature 36.2 C L 36.2 C L Pulse Rate 46 L 46 L Respiratory Rate 21 11 L 11 L Blood Pressure 98/52 L 112/58 L Pulse Oximetry 99 100 100 07/07/18 15:58 07/07/18 16:10 07/07/18 16:13 Temperature 36.2 C L 36.4 C L Pulse Rate 47 L 46 L Respiratory Rate 10 L 12 11 L Blood Pressure 112/58 L 102/55 L Pulse Oximetry 100 99 99 07/07/18 16:18 07/07/18 16:25 07/07/18 17:37 Temperature 35.6 C L 36.1 C L Pulse Rate 44 L 49 L 85 Respiratory Rate 11 L 12 14 Blood Pressure 120/50 L 117/58 L Pulse Oximetry 99 99 07/07/18 18:30 Temperature 35.9 C L Pulse Rate 89 Respiratory Rate 10 L Blood Pressure 86/61 L Pulse Oximetry 99 Intake & Output 07/06/18 07/07/18 07/07/18 18:59 06:59 18:59 Intake Total 1400 / 1400 240 / 240 5429 / 5429 Output Total 1300 / 1300 700 / 700 Balance 100 / 100 240 / 240 4729 / 4729 Weight 71 kg Intake: IV 2378 / 2378 Precedex Inj 200 MCG In NS Inj 50 / 50 48 ML @ 0.2 MCG/KG/HR 3.55 mls/ hr IV.CONT TITRATE PRN Rx#: [id number] NovoLIN R (IV Infusion) 100 16 / 16 UNIT In NS Inj 99 ML @ 3 UNITS/ HR 3 mls/hr IV.CONT TITRATE PRN Rx#:[id number] Neosynephrine Inj 40 MG In NS 162 / 162 Inj 496 ML @ 40 MCG/MIN 30 mls/ hr IV.CONT TITRATE PRN Rx#: [id number] Ofirmev Inj 1,000 mg In 100 ml 100 / 100 @ 400 mls/hr IV.SIG Q6H JAVI Rx# :[id number] Buminate 5% Inj 250 ML @ 250 250 / 250 mls/hr IV.SIG UNSCH PRN Rx#: [id number] LR 1000 mL Inj 500 ML @ 500 mls 1500 / 1500 /hr IV.SIG .Q1H PRN Rx#: [id number] KCl 20 mEq Premix Inj 20 meq In 100 / 100 100 ml @ 50 mls/hr IV.SIG PRN PRN Rx#:[id number] Ancef Inj 2,000 MG In NS Inj 80 200 / 200 ML @ 200 mls/hr IV.SIG Q8H JAVI Rx#:[id number] Oral 1400 / 1400 240 / 240 Anesthesia Amount 1500 / 1500 Other 60 / 60 Plasma Thawed 5 Day Cp2d Unit / 30 [id number] Pre-Pooled Cryo Thawed 10units 30 30 Unit [id number] Intake (Blood Product) Amt 1241 / 1241 Plasma Thawed 5 Day Cp2d Unit 0 / 0 [id number] Plasma Thawed 5 Day Cp2d Unit 205 / 205 [id number] Pre-Pooled Cryo Thawed 10units 236 / 236 Unit [id number] Rbc As-3 Leukoreduced Unit 0 / 0 [id number] Rbc As-3 Leukoreduced Unit 400 / 400 [id number] Rbc As-3 Leukoreduced Unit 400 / 400 [id number] Rbc As-3 Leukoreduced Unit 0 / 0 [id number] Cell Saver Amount 250 / 250 Output: Urine 1300 / 1300 Estimated Blood Loss 500 / 500 Urine Amount (Catheter) 200 / 200 Indwelling Temp Sensing 200 / 200 Catheter Other: # Voids 4 Date of Last Bowel Movement 07/02/18 Narrative: gen: elderly male, intubated, in cvicu bed, critically ill heent: nc. at. pale sclerae. perrl. neck: right IJ sheath in place, c/d/i. chest: normal rate, regular rhythm. 2 chest tubes exit subxiphoid with approximately 1250mL sanguinous output. cv: bradycardic rate of 45, regular rhythm. sinus. phenylephrine at 80 mcg/min, dopamine at 15 mcg/kg/min, epinephrine at 3 mcg/min abd: soft, nontender, nondistended, no guarding. extr: cool, poorly perfused. gu: ~15cc urine output in last hour. clear. neuro: RASS -4. moves all extremities. deeply sedated. - Urinary Catheter Management Indwelling Temp Sensing Catheter Cath placed during this visit: yes Reason for continuing: Hourly intake/output Insertion date: 07/07/18 Insertion time: 07:30 Assessment and Plan - Assessment and Plan Plan: Assessment: 73yM POD 0 s/p off pump cabg with hemorrhagic shock and left hemothorax. critically ill. continued vasopressors and balanced massive transfusion with resuscitation. Active problems: Hemorrhagic Shock Lactic Acidosis acute severe metabolic acidosis anemia secondary to acute blood loss coagulopathy secondary to consumption from hemorrhage left hemothorax hypocalcemia thrombocytopenia secondary to consumption Sinus bradycardia Plan: - epi and dobutamine for HR assistance. goal HR ~80 - phenylephrine to keep map > 65 mmHg - continue balanced resuscitation while unstable. 2 more ffp and 2 more prbc election judge to OR - back to OR for washout and left chest drainage. - trend lactates - use bicarbonate to keep pH > 7.2 in the setting of myocardial dysfunction - trend cvp - trend h&h - trend coags - goal hgb > 8 - goal plt > 100k - goal fibrinogen > 150 - goal INR < 1.5 - q1h uop monitoring I was personally at bedside from the time I received the consult until the patient returned to the OR, actively managing hemorrhagic shock and hemodynamics in active discussions with Dr. Bauer. Critical care time: 133 minutes, exclusive of separately billable procedures.
--- NOTE | 2018-07-07 19:14 | P.PCN ---
Date of procedure: 07/07/18 Pre-op diagnosis: hemorrhagic shock Procedure: Procedure: Transesophageal Echocardiography Diagnosis: Hemorrhagic shock Indications: Post coronary artery bypass grafting undifferentiated shock with need to rule out acute tamponade physiology in the setting of a patient with severe COPD and inability to get transthoracic views. Consent: Emergent Anesthesia: Versed 5 mg IV Description of the Procedure: The patient was sedated and mechanically ventilated. The echo probe was inserted easily and without resistance. At the conclusion of the procedure, the echo probe was removed. Findings: 1) Hyperdynamic LV function, EF 60% 2) Left ventricular hypertrophy 3) no regional wall motion abnormalities 4) normal Right ventricular size and function 5) mild aortic regurgitation 6) Underfilled left ventricle with touching papillary muscles in end-systole 7) trace pericardial effusion without echocardiographic evidence of tamponade physiology 8) large left pleural effusion with echodense material suggestive of hematoma 9) No evidence of aortic dissection The patient tolerated the procedure well. There were no immediate complications noted. There was minimal EBL. I personally performed the procedure.
--- NOTE | 2018-07-07 19:15 | P.PCN ---
Date of procedure: 07/07/18 Pre-op diagnosis: symptomatic bradycardia Post-op diagnosis: same Procedure: Transvenous Pacer Procedure Note Diagnosis: Symptomatic bradycardia Indications: Symptomatic bradycardia with need to increase cardiac output Consent: Emergent Anesthesia: Versed 5 mg IV Description of the Procedure: The patient was placed in the supine, mild- Trendelenburg position. The area was prepped and draped sterilely. A central introducer sheath was placed (see separate procedure note for details). Through this sheath, the 5 Fr transvenous pacer was inserted sterilely to a depth of 20 cm. The balloon was inflated and advanced in diastole with the pacer connected under real-time electrocardiographic monitoring, until capture was obtained. The balloon was deflated. The pacer was secured in position. There were no immediate complications noted. There was minimal EBL. The patient tolerated the procedure well. Depth at Capture: 32 cm mA at capture: 4mA I personally performed the procedure.
[2018-07-07 21:21] LABS: Baso % (Auto) 0.2 % (0.0-2.0); Eos % (Auto) 0.1 % (0.0-4.0); Hematocrit 29.7 % (39.0-51.0); Hemoglobin 10.2 gm/dL (13.0-17.0); Lymph # (Auto) 0.8 th/mm3 (1.0-4.8); Lymph % (Auto) 5.1 % (9.0-44.0); Mean Corpuscular HGB Conc 34.3 % (32.0-36.0); Mean Corpuscular Hemoglobin 28.8 pg (27.0-34.0); Mean Platelet Volume 9.7 fL (7.0-11.0); Mono # (Auto) 1.3 th/mm3 (0.0-0.9); Mono % (Auto) 8.5 % (0.0-8.0); Neut # (Auto) 13.1 th/mm3 (1.8-7.7); Neut % (Auto) 86.1 % (16.0-70.0); Platelet Count 116 th/mm3 (150-450); Red Blood Count 3.54 mil/mm3 (4.50-5.90); Red Cell Distribution Width 14.8 % (11.6-17.2); White Blood Count 15.1 th/mm3 (4.0-11.0)
[2018-07-07 21:38] LABS: Activated Partial Thrombo Time 26.5 sec (24.3-30.1)
--- NOTE | 2018-07-07 21:46 | P.OP ---
Date of procedure: 07/07/18 Anesthesia: GETA Surgeon: Estefanía Bauer MD Operation and Findings: PREPROCEDURE DIAGNOSES 1. Severe Multi Vessel Coronary Artery Disease. 2. Acute myocardial infarction status post CABG 3. Hemomediastinum POSTPROCEDURE DIAGNOSES Same SURGICAL PROCEDURE 1. Reexploration median sternotomy with evacuation of mediastinal hematoma 2. Repair of lung adhesion bleeding and tear status post previous left upper lobectomy 3. Repair of RPDA vein graft anastomosis oozing 4. Correction of coagulopathy 5. Synchronized cardioversion SURGEON Estefanía Bauer MD [employer] ANESTHESIA General endotracheal BSW SUDHA San MD PREPARATION ChloraPrep. COUNTS Needle, sponge, and instrument counts were correct. DRAINS Two 32-[place] mediastinal tubes. COMPLICATIONS None. INDICATIONS FOR PROCEDURE The patient is a 73-year-old gentleman status post off-pump coronary artery bypass grafting 3 for acute myocardial infarction earlier this morning. Preoperatively patient had been on antiplatelet therapy and postoperatively continue to have significant drainage of the mediastinal tubes as well as some hemodynamic instability. Patient has been brought to the operating room emergently for reexploration and appropriate therapy. The procedure was discussed over the telephone with the patient's daughter in [place] since no family members were present in town here. PROCEDURE Patient was brought to the operating room and placed supine on the OR table. Following the induction of adequate general endotracheal anesthesia and placement of appropriate monitoring devices, the patient was prepped and draped in the central sterile fashion. The previously closed median sternotomy incision was reopened and the sternal retractor. Exploration of the mediastinum revealed collection of blood and hematoma at the apical aspect of the left chest where the previous lobectomy had been performed. There were dense adhesions there from the lung to the mediastinum into the chest wall. There appear to be bleeding from the lung tissue with tear of the lung tissue at the site of adhesion. This was controlled with a GI stapling device reinforced with Kacy-Strips. Additional clot material was identified overlying the right ventricle once the pericardium was opened and the pericardial edges were retracted. The vein graft to the RPDA had some mild oozing at its heel which was reinforced and repaired with 7-0 Prolene interrupted stitch. The LAD anastomosis as well as a diagonal anastomosis were inspected and appeared to be hemostatic. Antibiotic irrigation was performed. Strict hemostasis was assured. The patient appear to have a diffuse coagulopathy. Platelets and cryoprecipitate were given in the operating room. The patient was noted to be in atrial fibrillation at this time. Synchronized cardioversion with 20 J was performed with return of normal sinus rhythm and improvement in hemodynamics. Ventricular pacing wires were placed. The closure was undertaken. 2 chest tubes were placed. The sternum was approximated using sternal wires. The muscular and fascial layer were then closed in 3 layers. The patient was transferred to CVICU in stable but critical condition.
[2018-07-07 21:54] LABS: Lymphocytes 7 % (9-44); Monocytes 5 % (0-8); Platelet Morphology Normal (Normal); RBC Morphology Normal (Normal)
[2018-07-07] MEDS ORDERED: Midazolam Inj 5 MG/ML 1 ML Vial IV.PUSH ONE (23:30)
[2018-07-07] MEDS ORDERED: Sodium Bicarbonate 8.4% Inj 50 MEQ/50 ML Syringe IV.PUSH ONE (23:30)
[2018-07-07] MEDS ORDERED: Cisatracurium Inj 20 MG/10 ML Vial IV.PUSH ONE (23:30)
[2018-07-07] MEDS ORDERED: Calcium Chloride Inj 1 GM/10 ML Syringe IV.PUSH ONE (23:30)
[2018-07-08] MEDS: Dexmedetomidine Inj 200 MCG in Sodium Chlor 0.9% Inj 48 ML IV.CONT PRN (00:18)
[2018-07-08] MEDS: Ketorolac Inj 30 MG/ML (IVP) Vial IV.PUSH PRN (02:35)
[2018-07-08] MEDS: fentaNYL Citrate Inj 100 MCG/2 ML Ampul IV.PUSH PRN ×3 (02:36→05:50)
--- NOTE | 2018-07-08 05:46 | XR ---
EXAM DATE: 07/08/2018 5:06 AM EDT AGE/SEX: 73 years / Male INDICATIONS: Status post CABG. CLINICAL DATA: This is the patient's subsequent encounter. Patient reports that signs and symptoms h ave been present for 4 - 6 days and indicates a pain score of Nonresponsive. MEDICAL/SURGICAL HISTORY: . Chronic obstructive pulmonary disease. Cardiovascular disease . . CABG. Coronary artery stent. Hernia repair. Lobectomy of lung. Cardiac catheterization. [place] [facility] [place]. . FINDINGS: Left and right chest tube without significant pneumothorax. Right central line in superior vena cava. Previous sternotomy. Mild basilar airspace disease and small effusions similar to July 07. No p neumothorax. CONCLUSION: Left and right chest tube remain anteriorly without pneumothorax. Mild basilar airspace disease with small effusions. Electronically signed by: Wilfrid Odom MD 07/08/2018 5:44 AM EDT
[2018-07-08 06:03] LABS: Eos % (Auto) 0.2 % (0.0-4.0); Hemoglobin 8.6 gm/dL (13.0-17.0); Lymph # (Auto) 0.4 th/mm3 (1.0-4.8); Lymph % (Auto) 8.8 % (9.0-44.0); Mean Corpuscular HGB Conc 35.6 % (32.0-36.0); Mean Corpuscular Hemoglobin 29.6 pg (27.0-34.0); Mean Corpuscular Volume 83.1 fL (80.0-100.0); Mono # (Auto) 0.5 th/mm3 (0.0-0.9); Mono % (Auto) 10.6 % (0.0-8.0); Neut # (Auto) 3.8 th/mm3 (1.8-7.7); Neut % (Auto) 80.4 % (16.0-70.0); Platelet Count 95 th/mm3 (150-450); Red Blood Count 2.89 mil/mm3 (4.50-5.90); Red Cell Distribution Width 14.5 % (11.6-17.2); White Blood Count 4.7 th/mm3 (4.0-11.0)
[2018-07-08 06:23] LABS: Carbon Dioxide 28.4 meq/L (21.0-32.0); Magnesium 2.2 mg/dL (1.5-2.5); Potassium 4.5 meq/L (3.5-5.1)
[2018-07-08] MEDS: ceFAZolin Inj 2,000 MG in Sodium Chlor 0.9% Inj 80 ML IV.SIG SCH ×3 (06:34→21:31)
[2018-07-08] MEDS ORDERED: Sod Phosphate/Sod Biphosphate (Adult) Enema 133 ML Bottle RECTAL PRN (08:44)
[2018-07-08] MEDS ORDERED: Dextrose 50% in Water 50 ML Vial IV.PUSH PRN (08:44)
[2018-07-08] MEDS ORDERED: Bisacodyl 10 MG Supp RECTAL PRN (08:44)
[2018-07-08] MEDS: Metoprolol Tartrate 25 MG Tablet PO SCH ×2 (09:35→20:29)
[2018-07-08] MEDS: Multivitamin/Minerals Therapeutic Tablet PO SCH (09:35)
[2018-07-08] MEDS: Amiodarone 200 MG Tablet PO SCH ×2 (09:36→20:29)
[2018-07-08] MEDS: Insulin NovoLOG Aspart Correctional Sugar Inj SQ SCH ×4 (09:46→21:32)
--- NOTE | 2018-07-08 10:01 | P.PNCV ---
- Note Subjective/Hospital Course: 73-year-old gentleman with a known history of coronary artery disease status post previous acute myocardial infarction in 2007 at which time he underwent PCI with stenting, who now presents with progressive symptoms of left upper quadrant abdominal pain with associated substernal chest pressure. Patient was seen in the emergency department and evaluated with further workup including EKG and enzymes and subsequently underwent a coronary angiogram today which revealed significant three-vessel coronary artery disease with heavily calcified coronary vessels. EF 55% Medical History Medical History: Medical History (Last Updated 07/02/18 @ 16:04 by Estefanía Bauer MD) Lung cancer (Acute) HTN (hypertension) (Acute) Surgical History: H/O heart artery stent, H/O hernia repair, History of lobectomy of lung, Hx of cardiac cath 07/03 Clinically and hemodynamically stable Denies chest pain or anginal equivalent symptoms Platelet function remains abnormal secondary to Plavix intake Surgery likely Saturday. Will repeat Plavix verify 07/04 Clinical stable. Denies any chest pain. Does complain of moderate to severe left flank pain. Denies nausea or vomiting Exam: Abdomen is tender to deep palpation in the left upper quadrant. No rebound or guarding. Normoactive bowel sounds. Nondistended. Planned cardiac surgery for Saturday if platelet function assay is within normal limits Needs further evaluation of abdominal pain to exclude a more urgent etiology. We will continue to follow with you. 07/[address] results noted. No acute pathology Plavix verify assay in the morning with possible surgery to follow 07/07 surgery: Urgent Off-pump Coronary Artery Bypass Grafting x 3 with Left Internal Mammary Artery (JOSEPH) to Left Anterior Descending (LAD), reverse saphenous vein graft to diagonal 1 branch of the LAD, reverse saphenous vein graft to the Posterior Descending branch of the Right Coronary artery, Left leg Endoscopic Vein [place], Per Dr Guan's note : immediately post-op with significant mediastinal chest tube bleeding. 1L EBL from chest tube in 4 hours, no clots evident in chest tube. 4 units prbc, 4 ffp, 1 cryo, 1 PLT. PT remained hypotensive. placed VIVIANA emergently: very hypovolemic LV. good biventricular function. no evidence of significant tamponade physiology. large left pleural effusion which has echogenic appearance of blood. continues to be significantly hypovolemic with falling CVP despite volume resuscitation. decision made to take back to OR. Was on phenylephrine, dopamine, epinephrine. 3000cc crystalloid , cell saver 250 + above blood products surgery #2 Emergent 1. Reexploration median sternotomy with evacuation of mediastinal hematoma 2. Repair of lung adhesion bleeding and tear status post previous left upper lobectomy 3. Repair of RPDA vein graft anastomosis oozing 4. Correction of coagulopathy 5. Synchronized cardioversion/ Afib / was given amiodarone bolus 07/08 pt off all pressors, up in chair , some very mild confusion/ will dc IV narcotics BP stable , HR mid 80-90. pt will require aggressive pulm toileting / long standing tobacco abuse discussed with friend , will need to look into rehab placement hold plavix today, ok for low dose ASA, on statin amiodarone will keep in CVICU today HGB 8.6/ recheck at 1400 Objective: Vital Signs - 24 hr 07/07/18 12:15 07/07/18 12:30 07/07/18 13:20 Temperature 96.3 F L Pulse Rate 54 L Respiratory Rate 8 L 7 L 9 L Blood Pressure 107/52 L Pulse Oximetry 100 99 07/07/18 13:30 07/07/18 14:35 07/07/18 14:50 Temperature 96.3 F L 96.3 F L Pulse Rate Respiratory Rate 21 Blood Pressure Pulse Oximetry 99 07/07/18 15:00 07/07/18 15:29 07/07/18 15:45 Temperature 97.1 F L 97.1 F L 97.1 F L Pulse Rate 46 L 46 L 46 L Respiratory Rate 10 L 11 L 11 L Blood Pressure 110/55 L 98/52 L 112/58 L Pulse Oximetry 99 100 100 07/07/18 15:58 07/07/18 16:10 07/07/18 16:13 Temperature 97.1 F L 97.5 F L Pulse Rate 47 L 46 L Respiratory Rate 10 L 12 11 L Blood Pressure 112/58 L 102/55 L Pulse Oximetry 100 99 99 07/07/18 16:18 07/07/18 16:25 07/07/18 17:37 Temperature 96.3 F L 96.9 F L Pulse Rate 44 L 49 L 85 Respiratory Rate 11 L 12 14 Blood Pressure 120/50 L 117/58 L Pulse Oximetry 99 99 07/07/18 17:40 07/07/18 18:30 07/07/18 19:00 Temperature 96.3 F L 96.3 F L Pulse Rate 89 83 Respiratory Rate 10 L 16 Blood Pressure 86/61 L 85/55 L Pulse Oximetry 99 99 07/07/18 22:00 07/07/18 22:06 07/07/18 22:19 Temperature 97.6 F 97.6 F Pulse Rate 74 71 Respiratory Rate 10 L 10 L 10 L Blood Pressure 109/68 107/64 Pulse Oximetry 99 98 98 07/07/18 22:21 07/07/18 22:47 07/07/18 23:00 Temperature 96.7 F L 97.6 F Pulse Rate 71 77 73 Respiratory Rate 10 L 10 L 10 L Blood Pressure 113/56 L 115/65 Pulse Oximetry 99 98 07/07/18 23:43 07/08/18 00:33 07/08/18 02:30 Temperature Pulse Rate Respiratory Rate 15 16 23 Blood Pressure Pulse Oximetry 99 99 07/08/18 03:00 07/08/18 03:11 07/08/18 07:00 Temperature 97.6 F 98.4 F Pulse Rate 82 86 92 H Respiratory Rate 12 18 18 Blood Pressure 119/70 128/66 Pulse Oximetry 98 99 07/08/18 08:00 Temperature Pulse Rate Respiratory Rate Blood Pressure Pulse Oximetry 99 GENERAL: awake up in chair , mildly confused to time SKIN: Warm and dry. prevena dressing to chest, some ecchymosis to proximal portion of sternum around prevena, veto wrap to left leg HEAD: Atraumatic. Normocephalic. EYES: Pupils equal and round. No scleral icterus. No injection or drainage. ENT: No nasal bleeding or discharge. Mucous membranes pink and moist. NECK: Trachea midline. No JVD. CARDIOVASCULAR: Regular rate and rhythm + rub , CVP 10 prior to getting up in chair V wires in place RESPIRATORY: diminished in the bases , No accessory muscle use. Breath sounds equal bilaterally. chest tube to wall suction no air leak, drained total 1600cc / 24hr 330/ 12hrs GASTROINTESTINAL: Abdomen soft, non-tender, nondistended. Hepatic and splenic margins not palpable. MUSCULOSKELETAL: Extremities without clubbing, cyanosis, or edema. No obvious deformities. NEUROLOGICAL: Awake and alert. No obvious cranial nerve deficits. Motor grossly within normal limits. Five out of 5 muscle strength in the arms and legs. Normal speech. Labs: Laboratory Results - last 12 hr 07/07/18 07/07/18 07/07/18 16:48 21:00 21:00 WBC RBC Hgb Hct MCV MCH MCHC RDW Plt Count MPV Prelim Diff (Auto) Neut % (Auto) Lymph % (Auto) Price % (Auto) Eos % (Auto) Baso % (Auto) Neut # (Auto) Lymph # (Auto) Price # (Auto) Eos # (Auto) Baso # (Auto) WBC Differential Manual diff final Diff Scan Seg Neuts % (Manual) 76 H Band Neuts % (Manual) 12 H Lymphocytes % (Manual) 7 L Monocytes % (Manual) 5 Abs Neuts (Manual) 13.3 H Differential Comment Platelet Estimate Low L Platelet Morphology Normal RBC Morphology Normal APTT 26.5 D Fibrinogen 235 Sodium Potassium Chloride Carbon Dioxide Anion Gap BUN Creatinine Estimated GFR POC Glucose Random Glucose Calcium Magnesium MTS Gel Crossmatch See Detail Blood Bank Comment Bld Prod Order Comment 07/07/18 07/07/18 07/07/18 21:21 21:30 22:19 WBC RBC Hgb Hct MCV MCH MCHC RDW Plt Count MPV Prelim Diff (Auto) Neut % (Auto) Lymph % (Auto) Price % (Auto) Eos % (Auto) Baso % (Auto) Neut # (Auto) Lymph # (Auto) Price # (Auto) Eos # (Auto) Baso # (Auto) WBC Differential Diff Scan Seg Neuts % (Manual) Band Neuts % (Manual) Lymphocytes % (Manual) Monocytes % (Manual) Abs Neuts (Manual) Differential Comment Platelet Estimate Platelet Morphology RBC Morphology APTT Fibrinogen Sodium Potassium Chloride Carbon Dioxide Anion Gap BUN Creatinine Estimated GFR POC Glucose 71 Random Glucose Calcium Magnesium MTS Gel Crossmatch Blood Bank Comment Bld Prod Order Comment 07/07/18 07/07/18 07/07/18 22:50 23:26 23:33 WBC RBC Hgb Hct MCV MCH MCHC RDW Plt Count MPV Prelim Diff (Auto) Neut % (Auto) Lymph % (Auto) Price % (Auto) Eos % (Auto) Baso % (Auto) Neut # (Auto) Lymph # (Auto) Price # (Auto) Eos # (Auto) Baso # (Auto) WBC Differential Diff Scan Seg Neuts % (Manual) Band Neuts % (Manual) Lymphocytes % (Manual) Monocytes % (Manual) Abs Neuts (Manual) Differential Comment Platelet Estimate Platelet Morphology RBC Morphology APTT Fibrinogen Sodium Potassium Chloride Carbon Dioxide Anion Gap BUN Creatinine Estimated GFR POC Glucose 110 94 92 Random Glucose Calcium Magnesium MTS Gel Crossmatch Blood Bank Comment d Prod Order Comment 07/08/18 07/08/18 07/08/18 00:12 03:07 04:45 WBC RBC Hgb Hct MCV MCH MCHC RDW Plt Count MPV Prelim Diff (Auto) Neut % (Auto) Lymph % (Auto) Price % (Auto) Eos % (Auto) Baso % (Auto) Neut # (Auto) Lymph # (Auto) Price # (Auto) Eos # (Auto) Baso # (Auto) WBC Differential Diff Scan Seg Neuts % (Manual) Band Neuts % (Manual) Lymphocytes % (Manual) Monocytes % (Manual) Abs Neuts (Manual) Differential Comment Platelet Estimate Platelet Morphology RBC Morphology APTT Fibrinogen Sodium 144 Potassium 4.5 Chloride 108 H Carbon Dioxide 28.4 Anion Gap 8 BUN 18 Creatinine 1.26 Estimated GFR 56 L POC Glucose 82 104 Random Glucose 110 H Calcium 9.0 Magnesium 2.2 MTS Gel Crossmatch Blood Bank Comment d Prod Order Comment 07/08/18 07/08/18 07/08/18 04:45 06:13 07:04 WBC 4.7 D RBC 2.89 L Hgb 8.6 L Hct 24.0 L MCV 83.1 MCH 29.6 MCHC 35.6 RDW 14.5 Plt Count 95 L MPV 10.0 Prelim Diff (Auto) Slide review pending Neut % (Auto) 80.4 H Lymph % (Auto) 8.8 L Price % (Auto) 10.6 H Eos % (Auto) 0.2 Baso % (Auto) 0.0 Neut # (Auto) 3.8 Lymph # (Auto) 0.4 L Price # (Auto) 0.5 Eos # (Auto) 0.0 Baso # (Auto) 0.0 WBC Differential . Diff Scan Auto diff confirmed Seg Neuts % (Manual) Band Neuts % (Manual) Lymphocytes % (Manual) Monocytes % (Manual) Abs Neuts (Manual) Differential Comment . Platelet Estimate Platelet Morphology Enlarged H RBC Morphology APTT Fibrinogen Sodium Potassium Chloride Carbon Dioxide Anion Gap BUN Creatinine Estimated GFR POC Glucose 116 H 108 Random Glucose Calcium Magnesium MTS Gel Crossmatch Blood Bank Comment Bld Prod Order Comment Result Diagrams: 07/08/18 04:45 07/08/18 04:45 Telemetry: NSR - Plan (2) CAD (coronary artery disease), [place] coronary artery (4) Tobacco abuse Plan: discussed smoking cessation (5) S/P CABG x 3 Plan: low dose ASA, hold PLavix on amiodarone, start low dose BB OOB ambulate dc IV narcotics eval for rehab at discharge (6) Blood loss anemia Plan: s/p multiple blood products HGB 8.6/ f/u levels HGB at 1400 leave chest tubes in (7) Postoperative hypovolemic shock Plan: resolved (2) CAD (coronary artery disease), [place] coronary artery Qualifiers: [place] vs. transplanted heart: [place] heart
--- NOTE | 2018-07-08 10:43 | P.DIET ---
Nutritional Evaluation Screening comments: MDC for diet education s/p CABG x 3 on (07/07) received. Patient Navigator to provide education. Consult RD if complexities with diet education arise.
--- NOTE | 2018-07-08 13:31 | P.PNCA ---
Subjective Interval history: alert in nad, sitting up in chair Physical Exam Vital signs: Vital Signs 07/07/18 14:35 07/07/18 14:50 07/07/18 15:00 Temperature 96.3 F L 97.1 F L Pulse Rate 46 L Respiratory Rate 21 10 L Blood Pressure 110/55 L Pulse Oximetry 99 99 07/07/18 15:29 07/07/18 15:45 07/07/18 15:58 Temperature 97.1 F L 97.1 F L 97.1 F L Pulse Rate 46 L 46 L 47 L Respiratory Rate 11 L 11 L 10 L Blood Pressure 98/52 L 112/58 L 112/58 L Pulse Oximetry 100 100 100 07/07/18 16:10 07/07/18 16:13 07/07/18 16:18 Temperature 97.5 F L Pulse Rate 46 L 44 L Respiratory Rate 12 11 L 11 L Blood Pressure 102/55 L Pulse Oximetry 99 99 07/07/18 16:25 07/07/18 17:37 07/07/18 17:40 Temperature 96.3 F L 96.9 F L 96.3 F L Pulse Rate 49 L 85 Respiratory Rate 12 14 Blood Pressure 120/50 L 117/58 L Pulse Oximetry 99 99 07/07/18 18:30 07/07/18 19:00 07/07/18 22:00 Temperature 96.3 F L 97.6 F Pulse Rate 89 83 74 Respiratory Rate 10 L 16 10 L Blood Pressure 86/61 L 85/55 L 109/68 Pulse Oximetry 99 99 99 07/07/18 22:06 07/07/18 22:19 07/07/18 22:21 Temperature 97.6 F Pulse Rate 71 71 Respiratory Rate 10 L 10 L 10 L Blood Pressure 107/64 Pulse Oximetry 98 98 07/07/18 22:47 07/07/18 23:00 07/07/18 23:43 Temperature 96.7 F L 97.6 F Pulse Rate 77 73 Respiratory Rate 10 L 10 L 15 Blood Pressure 113/56 L 115/65 Pulse Oximetry 99 98 99 07/08/18 00:33 07/08/18 02:30 07/08/18 03:00 Temperature 97.6 F Pulse Rate 82 Respiratory Rate 16 23 12 Blood Pressure 119/70 Pulse Oximetry 99 98 07/08/18 03:11 07/08/18 07:00 07/08/18 07:20 Temperature 98.4 F Pulse Rate 86 92 H Respiratory Rate 18 18 Blood Pressure 128/66 Pulse Oximetry 99 100 07/08/18 08:00 07/08/18 09:41 07/08/18 09:45 Temperature Pulse Rate 95 H Respiratory Rate 18 Blood Pressure Pulse Oximetry 99 99 07/08/18 10:36 07/08/18 11:00 07/08/18 12:00 Temperature 98.4 F 98.4 F Pulse Rate 105 H 104 H Respiratory Rate 18 18 18 Blood Pressure 130/68 Pulse Oximetry 96 Intake & Output 07/07/18 07/08/18 07/08/18 18:59 06:59 18:59 Intake Total 5829 / 5829 2413 / 2413 100 / 100 Output Total 2120 / 2120 2265 / 2265 Balance 3709 / 3709 148 / 148 100 / 100 Weight 83.5 kg Intake: IV 2378 / 2378 813 / 813 100 / 100 DOPamine 800 MG/500 ML Premix 26 / 26 800 mg In 500 ml @ 5 MCG/KG/MIN 13.313 mls/hr IV.CONT TITRATE PRN Rx#:[id number] Precedex Inj 200 MCG In NS Inj 50 / 50 85 / 85 0 / 0 48 ML @ 0.2 MCG/KG/HR 3.55 mls/ hr IV.CONT TITRATE PRN Rx#: [id number] EPINEPHrine (1:1000) Inj 2 MG 46 / 46 In D5W Inj 248 ML @ 3 MCG/MIN 22.5 mls/hr IV.CONT TITRATE PRN Rx#:[id number] NovoLIN R (IV Infusion) 100 16 / 16 16 / 16 0 / 0 UNIT In NS Inj 99 ML @ 3 UNITS/ HR 3 mls/hr IV.CONT TITRATE PRN Rx#:[id number] Neosynephrine Inj 40 MG In NS 162 / 162 90 / 90 0 / 0 Inj 496 ML @ 40 MCG/MIN 30 mls/ hr IV.CONT TITRATE PRN Rx#: [id number] Ofirmev Inj 1,000 mg In 100 ml 100 / 100 200 / 200 @ 400 mls/hr IV.SIG Q6H SHAHRAM Rx# :[id number] Buminate 5% Inj 250 ML @ 250 250 / 250 250 / 250 mls/hr IV.SIG UNSCH PRN Rx#: [id number] LR 1000 mL Inj 500 ML @ 500 mls 1500 / 1500 /hr IV.SIG .Q1H PRN Rx#: [id number] KCl 20 mEq Premix Inj 20 meq In 100 / 100 100 / 100 100 ml @ 50 mls/hr IV.SIG PRN PRN Rx#:[id number] Ancef Inj 2,000 MG In NS Inj 80 200 / 200 100 / 100 ML @ 200 mls/hr IV.SIG Q8H SHAHRAM Rx#:[id number] Oral 100 / 100 Anesthesia Amount 1500 / 1500 500 / 500 Other 460 / 460 Plasma Thawed 5 Day Cp2d Unit 30 / 30 [id number] Pre-Pooled Cryo Thawed 10units 30 30 Unit [id number] Intake (Blood Product) Amt 1241 / 1241 0 / 0 Plasma Thawed 5 Day Cp2d Unit 0 / 0 [id number] Plasma Thawed 5 Day Cp2d Unit 205 / 205 [id number] Plt Pheresis A Leukoreduced 0 / 0 Unit [id number] Pre-Pooled Cryo Thawed 10units 236 / 236 Unit [id number] Pre-Pooled Cryo Thawed 10units 0 / 0 Unit [id number] Rbc As-3 Leukoreduced Unit 0 / 0 [id number] Rbc As-3 Leukoreduced Unit 400 / 400 [id number] Rbc As-3 Leukoreduced Unit 400 / 400 [id number] Rbc As-3 Leukoreduced Unit 0 / 0 [id number] Mass Transfusion Protocol 750 / 750 Cell Saver Amount 250 / 250 250 / 250 Output: Estimated Blood Loss 500 / 500 500 / 500 Urine Amount (Catheter) 350 / 350 1435 / 1435 Indwelling Temp Sensing 350 / 350 1435 / 1435 Catheter Chest Tube Drainage 1270 / 1270 330 / 330 Pleural/Mediastinal 1270 / 1270 330 / 330 Other: Other Intake Source Saline Solution - Urinary Catheter Management Indwelling Temp Sensing Catheter Cath placed during this visit: yes, but has since been removed by the nurse Reason for continuing: Not indwelling catheter Insertion date: 07/07/18 Insertion time: 07:30 Removal date: 07/08/18 Removal time: 06:30 Assessment and Plan - Assessment (1) Unstable angina Code(s): I20.0 - Unstable angina Status: Acute (2) Tobacco abuse Code(s): Z72.0 - Tobacco use Status: Acute (3) CAD (coronary artery disease), [place] coronary artery Code(s): I25.10 - Atherosclerotic heart disease of [place] coronary artery without angina pectoris Status: Acute - Plan 1.) Severe 3 vessel cad - pod#1 cabg, f/u hgb, supportive post cabg care, chest tube in, patient strongly advised to stop smoking (3) CAD (coronary artery disease), [place] coronary artery Qualifiers: [place] vs. transplanted heart: [place] heart
--- NOTE | 2018-07-08 14:21 | ECG ---
Date Performed: 07/08/2018 Time Performed: 05:04:44 PTAGE: 73 years EKG: Sinus rhythm Anterolateral T wave changes may be due to myocardial ischemia New ST T wave changes are noted since prior tracing Clinical correlation is recommended Abnormal ECG PREVIOUS TRACING : 07/02/2018 19.53 DOCTOR: Memo Paul Interpretating Date/Time 07/08/2018 14:20:07
[2018-07-08 15:29] LABS: Hematocrit 26.3 % (39.0-51.0); Hemoglobin 9.3 gm/dL (13.0-17.0)
[2018-07-08] MEDS: Docusate Sodium 100 MG Capsule PO SCH (20:29)
[2018-07-09] MEDS: Insulin NovoLOG Aspart Correctional Sugar Inj SQ SCH ×6 (02:57→20:58)
[2018-07-09 04:43] LABS: Baso % (Auto) 0.3 % (0.0-2.0); Eos % (Auto) 0.3 % (0.0-4.0); Hematocrit 25.7 % (39.0-51.0); Hemoglobin 8.8 gm/dL (13.0-17.0); Lymph # (Auto) 0.8 th/mm3 (1.0-4.8); Lymph % (Auto) 10.2 % (9.0-44.0); Mean Corpuscular HGB Conc 34.2 % (32.0-36.0); Mean Corpuscular Hemoglobin 28.9 pg (27.0-34.0); Mean Corpuscular Volume 84.4 fL (80.0-100.0); Mean Platelet Volume 9.7 fL (7.0-11.0); Mono # (Auto) 0.8 th/mm3 (0.0-0.9); Mono % (Auto) 10.5 % (0.0-8.0); Neut % (Auto) 78.7 % (16.0-70.0); Platelet Count 103 th/mm3 (150-450); Red Blood Count 3.04 mil/mm3 (4.50-5.90); Red Cell Distribution Width 15.2 % (11.6-17.2); White Blood Count 7.7 th/mm3 (4.0-11.0)
[2018-07-09 05:10] LABS: Calcium 9.2 mg/dL (8.5-10.1); Carbon Dioxide 29.6 meq/L (21.0-32.0); Magnesium 2.3 mg/dL (1.5-2.5); Potassium 4.3 meq/L (3.5-5.1)
[2018-07-09] MEDS: ceFAZolin Inj 2,000 MG in Sodium Chlor 0.9% Inj 80 ML IV.SIG SCH ×2 (05:34→14:00)
[2018-07-09] MEDS: Polyethylene Glycol 3350 17 GM Packet PO SCH (08:18)
[2018-07-09] MEDS: Amiodarone 200 MG Tablet PO SCH ×2 (08:19→20:57)
[2018-07-09] MEDS: Metoprolol Tartrate 25 MG Tablet PO SCH ×2 (08:19→20:57)
[2018-07-09] MEDS: Multivitamin/Minerals Therapeutic Tablet PO SCH (08:19)
[2018-07-09] MEDS: Docusate Sodium 100 MG Capsule PO SCH ×2 (08:19→20:57)
--- NOTE | 2018-07-09 11:17 | P.PNCV ---
- Note Subjective/Hospital Course: 73-year-old gentleman with a known history of coronary artery disease status post previous acute myocardial infarction in 2007 at which time he underwent PCI with stenting, who now presents with progressive symptoms of left upper quadrant abdominal pain with associated substernal chest pressure. Patient was seen in the emergency department and evaluated with further workup including EKG and enzymes and subsequently underwent a coronary angiogram today which revealed significant three-vessel coronary artery disease with heavily calcified coronary vessels. EF 55% Medical History Medical History: Medical History (Last Updated 07/02/18 @ 16:04 by Estefanía Bauer MD) Lung cancer (Acute) HTN (hypertension) (Acute) Surgical History: H/O heart artery stent, H/O hernia repair, History of lobectomy of lung, Hx of cardiac cath 07/03 Clinically and hemodynamically stable Denies chest pain or anginal equivalent symptoms Platelet function remains abnormal secondary to Plavix intake Surgery likely Saturday. Will repeat Plavix verify 07/04 Clinical stable. Denies any chest pain. Does complain of moderate to severe left flank pain. Denies nausea or vomiting Exam: Abdomen is tender to deep palpation in the left upper quadrant. No rebound or guarding. Normoactive bowel sounds. Nondistended. Planned cardiac surgery for Saturday if platelet function assay is within normal limits Needs further evaluation of abdominal pain to exclude a more urgent etiology. We will continue to follow with you. 07/[address] results noted. No acute pathology Plavix verify assay in the morning with possible surgery to follow 07/07 surgery: Urgent Off-pump Coronary Artery Bypass Grafting x 3 with Left Internal Mammary Artery (JOSEPH) to Left Anterior Descending (LAD), reverse saphenous vein graft to diagonal 1 branch of the LAD, reverse saphenous vein graft to the Posterior Descending branch of the Right Coronary artery, Left leg Endoscopic Vein [place], Per Dr Guan's note : immediately post-op with significant mediastinal chest tube bleeding. 1L EBL from chest tube in 4 hours, no clots evident in chest tube. 4 units prbc, 4 ffp, 1 cryo, 1 PLT. PT remained hypotensive. placed VIVIANA emergently: very hypovolemic LV. good biventricular function. no evidence of significant tamponade physiology. large left pleural effusion which has echogenic appearance of blood. continues to be significantly hypovolemic with falling CVP despite volume resuscitation. decision made to take back to OR. Was on phenylephrine, dopamine, epinephrine. 3000cc crystalloid , cell saver 250 + above blood products surgery #2 Emergent 1. Reexploration median sternotomy with evacuation of mediastinal hematoma 2. Repair of lung adhesion bleeding and tear status post previous left upper lobectomy 3. Repair of RPDA vein graft anastomosis oozing 4. Correction of coagulopathy 5. Synchronized cardioversion/ Afib / was given amiodarone bolus 07/08 pt off all pressors, up in chair , some very mild confusion/ will dc IV narcotics BP stable , HR mid 80-90. pt will require aggressive pulm toileting / long standing tobacco abuse discussed with friend , will need to look into rehab placement hold plavix today, ok for low dose ASA, on statin amiodarone will keep in CVICU today HGB 8.6/ recheck at 1400 07/09 on room air prevena dressing removed from chest / adhesive intolerance BB increased , norvasc re-added started on ferrous sulfate chest tube and vwires removed transfer to stepdown Objective: Vital Signs - 24 hr 07/08/18 12:00 07/08/18 13:31 07/08/18 15:00 Temperature 98.4 F 98.6 F Pulse Rate 104 H 93 H Respiratory Rate 18 18 18 Blood Pressure 103/63 Pulse Oximetry 96 07/08/18 16:44 07/08/18 17:35 07/08/18 19:43 Temperature 98.4 F Pulse Rate 92 H 103 H Respiratory Rate 18 18 18 Blood Pressure 124/70 Pulse Oximetry 93 L 07/08/18 20:00 07/08/18 20:03 07/08/18 23:00 Temperature 98.0 F Pulse Rate 101 H 100 H Respiratory Rate 20 15 Blood Pressure 115/65 Pulse Oximetry 93 L 94 L 94 L 07/09/18 03:00 07/09/18 06:51 07/09/18 07:00 Temperature 98.2 F 98.0 F Pulse Rate 101 H 92 H 92 H Respiratory Rate 15 18 Blood Pressure 147/81 H 159/71 H Pulse Oximetry 96 07/09/18 08:00 07/09/18 08:30 07/09/18 09:00 Temperature Pulse Rate 98 H Respiratory Rate 18 18 Blood Pressure Pulse Oximetry 95 GENERAL: A&O x 3 SKIN: Warm and dry. prevena dressing removed , allergic dermatitis / left inner thigh with ecchymosis , leg incision intact HEAD: Normocephalic. EYES: No scleral icterus. No injection or drainage. NECK: Supple, trachea midline. No JVD or lymphadenopathy. CARDIOVASCULAR: Regular rate and rhythm without murmurs, gallops, or rubs. + 1 edema lower ext RESPIRATORY: Breath sounds equal bilaterally. No accessory muscle use. diminished in bases , otherwise CTA GASTROINTESTINAL: Abdomen soft, non-tender, nondistended. MUSCULOSKELETAL: No cyanosis, or edema. BACK: Nontender without obvious deformity. No CVA tenderness. Labs: Laboratory Results - last 12 hr 07/09/18 07/09/18 07/09/18 02:39 04:29 04:29 WBC 7.7 D RBC 3.04 L Hgb 8.8 L Hct 25.7 L MCV 84.4 MCH 28.9 MCHC 34.2 RDW 15.2 Plt Count 103 L MPV 9.7 Neut % (Auto) 78.7 H Lymph % (Auto) 10.2 [place] % (Auto) 10.5 H Eos % (Auto) 0.3 Baso % (Auto) 0.3 Neut # (Auto) 6.0 Lymph # (Auto) 0.8 L [place] # (Auto) 0.8 Eos # (Auto) 0.0 Baso # (Auto) 0.0 WBC Differential . Differential Comment Auto diff final Sodium 142 Potassium 4.3 Chloride 104 Carbon Dioxide 29.6 Anion Gap 8 BUN 25 H Creatinine 1.55 H Estimated GFR 44 L POC Glucose 106 Random Glucose 96 Calcium 9.2 Magnesium 2.3 07/09/18 08:29 WBC RBC Hgb Hct MCV MCH MCHC RDW Plt Count MPV Neut % (Auto) Lymph % (Auto) [place] % (Auto) Eos % (Auto) Baso % (Auto) Neut # (Auto) Lymph # (Auto) [place] # (Auto) Eos # (Auto) Baso # (Auto) WBC Differential Differential Comment Sodium Potassium Chloride Carbon Dioxide Anion Gap BUN Creatinine Estimated GFR POC Glucose 114 H Random Glucose Calcium Magnesium Result Diagrams: 07/09/18 04:29 07/09/18 04:29 - Plan (2) CAD (coronary artery disease), [place] coronary artery (4) Tobacco abuse Plan: discussed smoking cessation (5) S/P CABG x 3 Plan: low dose ASA, resume PLavix on amiodarone, increase BB , statin OOB ambulate chest tubes removed without difficulty eval for rehab at discharge (6) Blood loss anemia Plan: s/p multiple blood products HGB 8.6/ > ferrous sulfate (7) Acute kidney injury Plan: monitor indices (2) CAD (coronary artery disease), [place] coronary artery Qualifiers: [place] vs. transplanted heart: [place] heart
[2018-07-09] MEDS: Ferrous Sulfate 325 MG Tablet PO SCH ×2 (12:09→16:28)
--- NOTE | 2018-07-09 12:10 | P.PNCA ---
Subjective Interval history: alert in nad, sitting on edge of bed eating lunch Physical Exam Vital signs: Vital Signs 07/08/18 13:31 07/08/18 15:00 07/08/18 16:44 Temperature 98.6 F Pulse Rate 93 H Respiratory Rate 18 18 18 Blood Pressure 103/63 Pulse Oximetry 96 07/08/18 17:35 07/08/18 19:43 07/08/18 20:00 Temperature 98.4 F Pulse Rate 92 H 103 H Respiratory Rate 18 18 Blood Pressure 124/70 Pulse Oximetry 93 L 93 L 07/08/18 20:03 07/08/18 23:00 07/09/18 03:00 Temperature 98.0 F 98.2 F Pulse Rate 101 H 100 H 101 H Respiratory Rate 20 15 15 Blood Pressure 115/65 147/81 H Pulse Oximetry 94 L 94 L 96 07/09/18 06:51 07/09/18 07:00 07/09/18 08:00 Temperature 98.0 F Pulse Rate 92 H 92 H Respiratory Rate 18 Blood Pressure 159/71 H Pulse Oximetry 95 07/09/18 08:30 07/09/18 09:00 Temperature Pulse Rate 98 H Respiratory Rate 18 18 Blood Pressure Pulse Oximetry Intake & Output 07/08/18 07/09/18 07/09/18 18:59 06:59 18:59 Intake Total 1400 / 1400 680 / 680 480 / 480 Output Total 520 / 520 410 / 410 350 / 350 Balance 880 / 880 270 / 270 130 / 130 Intake: IV 200 / 200 200 / 200 0 / 0 DOPamine 800 MG/500 ML Premix 0 / 0 800 mg In 500 ml @ 5 MCG/KG/MIN 13.313 mls/hr IV.CONT TITRATE PRN Rx#:[id number] Precedex Inj 200 MCG In NS Inj 0 / 0 48 ML @ 0.2 MCG/KG/HR 3.55 mls/ hr IV.CONT TITRATE PRN Rx#: [id number] EPINEPHrine (1:1000) Inj 2 MG 0 / 0 In D5W Inj 248 ML @ 3 MCG/MIN 22.5 mls/hr IV.CONT TITRATE PRN Rx#:[id number] NovoLIN R (IV Infusion) 100 0 / 0 UNIT In NS Inj 99 ML @ 3 UNITS/ HR 3 mls/hr IV.CONT TITRATE PRN Rx#:[id number] Neosynephrine Inj 40 MG In NS 0 / 0 Inj 496 ML @ 40 MCG/MIN 30 mls/ hr IV.CONT TITRATE PRN Rx#: [id number] Ancef Inj 2,000 MG In NS Inj 80 200 / 200 200 / 200 ML @ 200 mls/hr IV.SIG Q8H SHAHRAM Rx#:[id number] Oral 1200 / 1200 480 / 480 480 / 480 Output: Urine 230 / 230 300 / 300 350 / 350 Chest Tube Drainage 290 / 290 110 / 110 Pleural/Mediastinal 290 / 290 110 / 110 Other: # Voids 3 # Incontinent Voids 2 - Urinary Catheter Management Indwelling Temp Sensing Catheter Cath placed during this visit: yes, but has since been removed by the nurse Reason for continuing: Not indwelling catheter Insertion date: 07/07/18 Insertion time: 07:30 Removal date: 07/08/18 Removal time: 06:30 Assessment and Plan - Assessment (1) Unstable angina Code(s): I20.0 - Unstable angina Status: Acute (2) Tobacco abuse Code(s): Z72.0 - Tobacco use Status: Acute (3) CAD (coronary artery disease), [place] coronary artery Code(s): I25.10 - Atherosclerotic heart disease of [place] coronary artery without angina pectoris Status: Acute - Plan 1.) Severe 3 vessel cad - pod#2 cabg, f/u hgb, supportive post cabg care, chest tube out, patient strongly advised to stop smoking, continue aspirin, lipitor (3) CAD (coronary artery disease), [place] coronary artery Qualifiers: [place] vs. transplanted heart: [place] heart
--- NOTE | 2018-07-09 16:06 | P.PNADD ---
Addendum to Inpatient Note Reason for Addendum: Corrected Documentation (Discussed with CVT, cancel medical consult)
[2018-07-10 04:56] LABS: Baso % (Auto) 0.5 % (0.0-2.0); Eos % (Auto) 0.4 % (0.0-4.0); Hematocrit 26.5 % (39.0-51.0); Hemoglobin 8.9 gm/dL (13.0-17.0); Lymph # (Auto) 0.8 th/mm3 (1.0-4.8); Mean Corpuscular HGB Conc 33.6 % (32.0-36.0); Mean Corpuscular Volume 86.2 fL (80.0-100.0); Mean Platelet Volume 10.3 fL (7.0-11.0); Mono # (Auto) 0.7 th/mm3 (0.0-0.9); Mono % (Auto) 9.5 % (0.0-8.0); Neut % (Auto) 79.6 % (16.0-70.0); Platelet Count 94 th/mm3 (150-450); Red Blood Count 3.08 mil/mm3 (4.50-5.90); Red Cell Distribution Width 14.8 % (11.6-17.2); White Blood Count 7.5 th/mm3 (4.0-11.0)
[2018-07-10 05:21] LABS: Calcium 8.8 mg/dL (8.5-10.1); Carbon Dioxide 29.3 meq/L (21.0-32.0); Magnesium 2.3 mg/dL (1.5-2.5); Potassium 3.8 meq/L (3.5-5.1)
[2018-07-10 06:59] LABS: Platelet Morphology Normal (Normal)
[2018-07-10] MEDS: amLODIPine 5 MG Tablet PO SCH (08:46)
[2018-07-10] MEDS: Metoprolol Tartrate 25 MG Tablet PO SCH ×2 (08:46→20:39)
[2018-07-10] MEDS: Insulin NovoLOG Aspart Correctional Sugar Inj SQ SCH ×4 (08:46→20:40)
[2018-07-10] MEDS: Docusate Sodium 100 MG Capsule PO SCH ×2 (08:46→20:39)
[2018-07-10] MEDS: Multivitamin/Minerals Therapeutic Tablet PO SCH (08:46)
[2018-07-10] MEDS: Amiodarone 200 MG Tablet PO SCH ×2 (08:46→20:39)
[2018-07-10] MEDS: Polyethylene Glycol 3350 17 GM Packet PO SCH (08:47)
--- NOTE | 2018-07-10 10:18 | XR ---
EXAM DATE: 07/10/2018 9:37 AM EDT AGE/SEX: 73 years / Male INDICATIONS: Post chest tube removal CLINICAL DATA: This is the patient's subsequent encounter. Patient reports that signs and symptoms h ave been present for 4 - 6 days and indicates a pain score of 0/10. MEDICAL/SURGICAL HISTORY: . Hypertension. Carcinoma, lung None. COMPARISON: [facility] [place] 1V SINGLE AP, 07/08/2018. . FINDINGS: Right neck central line remains in good position. There has been removal of thoracostomy tubes withou t evidence of pneumothorax or other complication. There is mild persistent left lung atelectasis. Right lung is clear. Cardiac contours are unchanged. CONCLUSION: Thoracostomy tubes removed without complication. Electronically signed by: Dennis Womack MD 07/10/2018 10:17 AM EDT
--- NOTE | 2018-07-10 12:44 | P.PNCA ---
Subjective Interval history: alert in nad Physical Exam Vital signs: Vital Signs 07/09/18 15:00 07/09/18 15:41 07/09/18 16:00 Temperature 98.5 F Pulse Rate 103 H 102 H 107 H Respiratory Rate 16 18 Blood Pressure 147/80 H Pulse Oximetry 95 07/09/18 17:00 07/09/18 18:00 07/09/18 19:00 Temperature 98.0 F Pulse Rate 96 H 108 H 105 H Respiratory Rate 24 Blood Pressure 138/65 Pulse Oximetry 98 07/09/18 19:12 07/09/18 20:00 07/09/18 21:00 Temperature Pulse Rate 108 H 112 H 104 H Respiratory Rate 16 Blood Pressure Pulse Oximetry 98 07/09/18 21:30 07/09/18 22:00 07/09/18 23:00 Temperature 98.2 F Pulse Rate 98 H 93 H Respiratory Rate 24 24 Blood Pressure 138/65 Pulse Oximetry 94 L 07/10/18 00:00 07/10/18 01:00 07/10/18 02:00 Temperature Pulse Rate 98 H 106 H 98 H Respiratory Rate Blood Pressure Pulse Oximetry 07/10/18 03:00 07/10/18 04:00 07/10/18 05:00 Temperature 97.8 F Pulse Rate 96 H 94 H 94 H Respiratory Rate 24 Blood Pressure 141/74 H Pulse Oximetry 93 L 07/10/18 06:00 07/10/18 08:00 07/10/18 08:26 Temperature 97.7 F Pulse Rate 99 H 100 H 96 H Respiratory Rate 18 16 Blood Pressure 164/74 H Pulse Oximetry 91 L 95 07/10/18 11:00 Temperature 97.9 F Pulse Rate 80 Respiratory Rate 18 Blood Pressure 156/72 H Pulse Oximetry 97 Intake & Output 07/09/18 07/10/18 07/10/18 18:59 06:59 18:59 Intake Total 1500 / 1500 240 / 240 Output Total 1250 / 1250 1600 / 1600 Balance 250 / 250 -1360 / -1360 Weight 79 kg Intake: IV 100 / 100 DOPamine 800 MG/500 ML Premix 0 / 0 800 mg In 500 ml @ 5 MCG/KG/MIN 13.313 mls/hr IV.CONT TITRATE PRN Rx#:[id number] EPINEPHrine (1:1000) Inj 2 MG 0 / 0 In D5W Inj 248 ML @ 3 MCG/MIN 22.5 mls/hr IV.CONT TITRATE PRN Rx#:[id number] Ancef Inj 2,000 MG In NS Inj 80 100 / 100 ML @ 200 mls/hr IV.SIG Q8H SHAHRAM Rx#:[id number] Oral 1400 / 1400 240 / 240 Output: Urine 1250 / 1250 1600 / 1600 Other: Date of Last Bowel Movement 07/07/18 - Urinary Catheter Management Indwelling Temp Sensing Catheter Cath placed during this visit: yes, but has since been removed by the nurse Reason for continuing: Not indwelling catheter Insertion date: 07/07/18 Insertion time: 07:30 Removal date: 07/08/18 Removal time: 06:30 Assessment and Plan - Assessment (1) Unstable angina Code(s): I20.0 - Unstable angina Status: Acute (2) Tobacco abuse Code(s): Z72.0 - Tobacco use Status: Acute (3) CAD (coronary artery disease), [place] coronary artery Code(s): I25.10 - Atherosclerotic heart disease of [place] coronary artery without angina pectoris Status: Acute - Plan 1.) Severe 3 vessel cad - pod#3 cabg, f/u hgb, supportive post cabg care, chest tube out, patient strongly advised to stop smoking, continue aspirin, lipitor, lopressor
[2018-07-10] MEDS: Ferrous Sulfate 325 MG Tablet PO SCH ×2 (13:06→18:08)
--- NOTE | 2018-07-10 13:25 | P.PNCV ---
- Note Subjective/Hospital Course: 73-year-old gentleman with a known history of coronary artery disease status post previous acute myocardial infarction in 2007 at which time he underwent PCI with stenting, who now presents with progressive symptoms of left upper quadrant abdominal pain with associated substernal chest pressure. Patient was seen in the emergency department and evaluated with further workup including EKG and enzymes and subsequently underwent a coronary angiogram today which revealed significant three-vessel coronary artery disease with heavily calcified coronary vessels. EF 55% Medical History Medical History: Medical History (Last Updated 07/02/18 @ 16:04 by Estefanía Bauer MD) Lung cancer (Acute) HTN (hypertension) (Acute) Surgical History: H/O heart artery stent, H/O hernia repair, History of lobectomy of lung, Hx of cardiac cath 07/03 Clinically and hemodynamically stable Denies chest pain or anginal equivalent symptoms Platelet function remains abnormal secondary to Plavix intake Surgery likely Saturday. Will repeat Plavix verify 07/04 Clinical stable. Denies any chest pain. Does complain of moderate to severe left flank pain. Denies nausea or vomiting Exam: Abdomen is tender to deep palpation in the left upper quadrant. No rebound or guarding. Normoactive bowel sounds. Nondistended. Planned cardiac surgery for Saturday if platelet function assay is within normal limits Needs further evaluation of abdominal pain to exclude a more urgent etiology. We will continue to follow with you. 07/[address] results noted. No acute pathology Plavix verify assay in the morning with possible surgery to follow 07/07 surgery: Urgent Off-pump Coronary Artery Bypass Grafting x 3 with Left Internal Mammary Artery (JOSEPH) to Left Anterior Descending (LAD), reverse saphenous vein graft to diagonal 1 branch of the LAD, reverse saphenous vein graft to the Posterior Descending branch of the Right Coronary artery, Left leg Endoscopic Vein [place], Per Dr Guan's note : immediately post-op with significant mediastinal chest tube bleeding. 1L EBL from chest tube in 4 hours, no clots evident in chest tube. 4 units prbc, 4 ffp, 1 cryo, 1 PLT. PT remained hypotensive. placed VIVIANA emergently: very hypovolemic LV. good biventricular function. no evidence of significant tamponade physiology. large left pleural effusion which has echogenic appearance of blood. continues to be significantly hypovolemic with falling CVP despite volume resuscitation. decision made to take back to OR. Was on phenylephrine, dopamine, epinephrine. 3000cc crystalloid , cell saver 250 + above blood products surgery #2 Emergent 1. Reexploration median sternotomy with evacuation of mediastinal hematoma 2. Repair of lung adhesion bleeding and tear status post previous left upper lobectomy 3. Repair of RPDA vein graft anastomosis oozing 4. Correction of coagulopathy 5. Synchronized cardioversion/ Afib / was given amiodarone bolus 07/08 pt off all pressors, up in chair , some very mild confusion/ will dc IV narcotics BP stable , HR mid 80-90. pt will require aggressive pulm toileting / long standing tobacco abuse discussed with friend , will need to look into rehab placement hold plavix today, ok for low dose ASA, on statin amiodarone will keep in CVICU today HGB 8.6/ recheck at 1400 07/09 on room air prevena dressing removed from chest / adhesive intolerance BB increased , norvasc re-added started on ferrous sulfate chest tube and vwires removed transfer to stepdown 07/10 renal indices improving , gentle diuresis today BB increased , eval for rehab at discharge no BM to date, additional GI motility meds given Objective: Vital Signs - 24 hr 07/09/18 15:00 07/09/18 15:41 07/09/18 16:00 Temperature 98.5 F Pulse Rate 103 H 102 H 107 H Respiratory Rate 16 18 Blood Pressure 147/80 H Pulse Oximetry 95 07/09/18 17:00 07/09/18 18:00 07/09/18 19:00 Temperature 98.0 F Pulse Rate 96 H 108 H 105 H Respiratory Rate 24 Blood Pressure 138/65 Pulse Oximetry 98 07/09/18 19:12 07/09/18 20:00 07/09/18 21:00 Temperature Pulse Rate 108 H 112 H 104 H Respiratory Rate 16 Blood Pressure Pulse Oximetry 98 07/09/18 21:30 07/09/18 22:00 07/09/18 23:00 Temperature 98.2 F Pulse Rate 98 H 93 H Respiratory Rate 24 24 Blood Pressure 138/65 Pulse Oximetry 94 L 07/10/18 00:00 07/10/18 01:00 07/10/18 02:00 Temperature Pulse Rate 98 H 106 H 98 H Respiratory Rate Blood Pressure Pulse Oximetry 07/10/18 03:00 07/10/18 04:00 07/10/18 05:00 Temperature 97.8 F Pulse Rate 96 H 94 H 94 H Respiratory Rate 24 Blood Pressure 141/74 H Pulse Oximetry 93 L 07/10/18 06:00 07/10/18 08:00 07/10/18 08:26 Temperature 97.7 F Pulse Rate 99 H 100 H 96 H Respiratory Rate 18 16 Blood Pressure 164/74 H Pulse Oximetry 91 L 95 07/10/18 11:00 Temperature 97.9 F Pulse Rate 80 Respiratory Rate 18 Blood Pressure 156/72 H Pulse Oximetry 97 GENERAL: A&O x 3 SKIN: Warm and dry. incision intact and well approximated to chest , some ecchymosis around incision HEAD: Normocephalic. EYES: No scleral icterus. No injection or drainage. NECK: Supple, trachea midline. No JVD or lymphadenopathy. CARDIOVASCULAR: Regular rate and rhythm without murmurs, gallops, or rubs. + 1 edema lower ext RESPIRATORY: Breath sounds equal bilaterally. No accessory muscle use. diminished in bases GASTROINTESTINAL: Abdomen soft, non-tender, nondistended. MUSCULOSKELETAL: No cyanosis, or edema. BACK: Nontender without obvious deformity. No CVA tenderness. Labs: Laboratory Results - last 12 hr 07/07/18 07/10/18 07/10/18 16:48 04:35 04:35 WBC 7.5 RBC 3.08 L Hgb 8.9 L Hct 26.5 L MCV 86.2 MCH 29.0 MCHC 33.6 RDW 14.8 Plt Count 94 L MPV 10.3 Prelim Diff (Auto) Slide review pending Neut % (Auto) 79.6 H Lymph % (Auto) 10.0 [place] % (Auto) 9.5 H Eos % (Auto) 0.4 Baso % (Auto) 0.5 Neut # (Auto) 6.0 Lymph # (Auto) 0.8 L [place] # (Auto) 0.7 Eos # (Auto) 0.0 Baso # (Auto) 0.0 WBC Differential . Diff Scan Auto diff confirmed Differential Comment . Platelet Estimate Low L Platelet Morphology Normal Sodium 142 Potassium 3.8 Chloride 105 Carbon Dioxide 29.3 Anion Gap 8 BUN 22 H Creatinine 1.30 Estimated GFR 54 L POC Glucose Random Glucose 95 Calcium 8.8 Magnesium 2.3 MTS Gel Crossmatch See Detail 07/10/18 07:52 WBC RBC Hgb Hct MCV MCH MCHC RDW Plt Count MPV Prelim Diff (Auto) Neut % (Auto) Lymph % (Auto) [place] % (Auto) Eos % (Auto) Baso % (Auto) Neut # (Auto) Lymph # (Auto) [place] # (Auto) Eos # (Auto) Baso # (Auto) WBC Differential Diff Scan Differential Comment Platelet Estimate Platelet Morphology Sodium Potassium Chloride Carbon Dioxide Anion Gap BUN Creatinine Estimated GFR POC Glucose 107 Random Glucose Calcium Magnesium MTS Gel Crossmatch Result Diagrams: 07/10/18 04:35 07/10/18 04:35 Telemetry: NSR - Plan (2) CAD (coronary artery disease), [place] coronary artery (4) Tobacco abuse Plan: discussed smoking cessation (5) S/P CABG x 3 Plan: low dose ASA, resume PLavix on amiodarone, increase BB , statin OOB ambulate gentle diuresis eval for rehab at discharge (6) Blood loss anemia Plan: s/p multiple blood products HGB 8.6/ > ferrous sulfate (7) Acute kidney injury Plan: monitor indices indices improving (2) CAD (coronary artery disease), [place] coronary artery Qualifiers: [place] vs. transplanted heart: [place] heart
[2018-07-11 06:00] LABS: Calcium 8.7 mg/dL (8.5-10.1); Carbon Dioxide 28.9 meq/L (21.0-32.0); Magnesium 2.2 mg/dL (1.5-2.5); Potassium 3.8 meq/L (3.5-5.1)
--- NOTE | 2018-07-11 08:05 | P.PNCA ---
Subjective Interval history: asleep in nad Physical Exam Vital signs: Vital Signs 07/10/18 08:26 07/10/18 09:00 07/10/18 10:00 Temperature Pulse Rate 96 H 106 H 74 Respiratory Rate 16 Blood Pressure Pulse Oximetry 95 07/10/18 11:00 07/10/18 12:00 07/10/18 13:00 Temperature 97.9 F Pulse Rate 88 92 H 94 H Respiratory Rate 18 Blood Pressure 156/72 H Pulse Oximetry 97 07/10/18 13:03 07/10/18 14:00 07/10/18 15:00 Temperature 98.4 F Pulse Rate 99 H 104 H 97 H Respiratory Rate 14 18 Blood Pressure 140/66 Pulse Oximetry 99 07/10/18 16:00 07/10/18 17:00 07/10/18 18:00 Temperature Pulse Rate 100 H 98 H 108 H Respiratory Rate Blood Pressure Pulse Oximetry 07/10/18 19:00 07/10/18 20:00 07/10/18 20:10 Temperature 98.2 F Pulse Rate 99 H 98 H Respiratory Rate 22 Blood Pressure 115/58 L Pulse Oximetry 97 95 07/10/18 21:00 07/10/18 22:00 07/10/18 23:00 Temperature 97.8 F Pulse Rate 92 H 84 82 Respiratory Rate 22 Blood Pressure 110/58 L Pulse Oximetry 94 L 07/11/18 00:00 07/11/18 01:00 07/11/18 02:00 Temperature Pulse Rate 88 90 96 H Respiratory Rate Blood Pressure Pulse Oximetry 07/11/18 03:00 07/11/18 04:00 07/11/18 05:00 Temperature 97.7 F Pulse Rate 92 H 86 88 Respiratory Rate 22 Blood Pressure 115/59 L Pulse Oximetry 95 07/11/18 06:00 07/11/18 07:00 Temperature 98.3 F Pulse Rate 90 95 H Respiratory Rate 20 Blood Pressure 120/73 Pulse Oximetry 96 Intake & Output 07/10/18 07/11/18 07/11/18 18:59 06:59 18:59 Intake Total 1200 / 1200 240 / 240 Output Total 2675 / 2675 700 / 700 Balance -1475 / -1475 -460 / -460 Weight 78.5 kg Intake: Oral 1200 / 1200 240 / 240 Output: Urine 2675 / 2675 700 / 700 Other: Date of Last Bowel Movement 07/07/18 07/07/18 07/07/18 # Bowel Movements 0 - Urinary Catheter Management Indwelling Temp Sensing Catheter Cath placed during this visit: yes, but has since been removed by the nurse Reason for continuing: Not indwelling catheter Insertion date: 07/07/18 Insertion time: 07:30 Removal date: 07/08/18 Removal time: 06:30 Assessment and Plan - Assessment (1) Unstable angina Code(s): I20.0 - Unstable angina Status: Acute (2) Tobacco abuse Code(s): Z72.0 - Tobacco use Status: Acute (3) CAD (coronary artery disease), [place] coronary artery Code(s): I25.10 - Atherosclerotic heart disease of [place] coronary artery without angina pectoris Status: Acute - Plan 1.) Severe 3 vessel cad - pod#4 cabg, supportive post cabg care, chest tube out , patient strongly advised to stop smoking, continue aspirin, lipitor, lopressor ; veto held due to arf (3) CAD (coronary artery disease), [place] coronary artery Qualifiers: [place] vs. transplanted heart: [place] heart
[2018-07-11] MEDS: Insulin NovoLOG Aspart Correctional Sugar Inj SQ SCH ×4 (09:06→21:23)
[2018-07-11] MEDS: Metoprolol Tartrate 25 MG Tablet PO SCH ×2 (09:07→21:19)
[2018-07-11] MEDS: Multivitamin/Minerals Therapeutic Tablet PO SCH (09:08)
[2018-07-11] MEDS: Amiodarone 200 MG Tablet PO SCH ×3 (09:08→21:20)
[2018-07-11] MEDS: Docusate Sodium 100 MG Capsule PO SCH ×2 (09:08→21:23)
[2018-07-11] MEDS: Polyethylene Glycol 3350 17 GM Packet PO SCH (09:13)
[2018-07-11] MEDS ORDERED: Metoprolol Tartrate 100 MG Tablet PO SCH (10:00)
[2018-07-11] MEDS: Ferrous Sulfate 325 MG Tablet PO SCH ×2 (11:51→16:53)
--- NOTE | 2018-07-11 14:42 | P.PNCV ---
- Note Subjective/Hospital Course: 73-year-old gentleman with a known history of coronary artery disease status post previous acute myocardial infarction in 2007 at which time he underwent PCI with stenting, who now presents with progressive symptoms of left upper quadrant abdominal pain with associated substernal chest pressure. Patient was seen in the emergency department and evaluated with further workup including EKG and enzymes and subsequently underwent a coronary angiogram today which revealed significant three-vessel coronary artery disease with heavily calcified coronary vessels. EF 55% Medical History Medical History: Medical History (Last Updated 07/02/18 @ 16:04 by Estefanía Bauer MD) Lung cancer (Acute) HTN (hypertension) (Acute) Surgical History: H/O heart artery stent, H/O hernia repair, History of lobectomy of lung, Hx of cardiac cath 07/03 Clinically and hemodynamically stable Denies chest pain or anginal equivalent symptoms Platelet function remains abnormal secondary to Plavix intake Surgery likely Saturday. Will repeat Plavix verify 07/04 Clinical stable. Denies any chest pain. Does complain of moderate to severe left flank pain. Denies nausea or vomiting Exam: Abdomen is tender to deep palpation in the left upper quadrant. No rebound or guarding. Normoactive bowel sounds. Nondistended. Planned cardiac surgery for Saturday if platelet function assay is within normal limits Needs further evaluation of abdominal pain to exclude a more urgent etiology. We will continue to follow with you. 07/[address] results noted. No acute pathology Plavix verify assay in the morning with possible surgery to follow 07/07 surgery: Urgent Off-pump Coronary Artery Bypass Grafting x 3 with Left Internal Mammary Artery (JOSEPH) to Left Anterior Descending (LAD), reverse saphenous vein graft to diagonal 1 branch of the LAD, reverse saphenous vein graft to the Posterior Descending branch of the Right Coronary artery, Left leg Endoscopic Vein [place], Per Dr Guan's note : immediately post-op with significant mediastinal chest tube bleeding. 1L EBL from chest tube in 4 hours, no clots evident in chest tube. 4 units prbc, 4 ffp, 1 cryo, 1 PLT. PT remained hypotensive. placed VIVIANA emergently: very hypovolemic LV. good biventricular function. no evidence of significant tamponade physiology. large left pleural effusion which has echogenic appearance of blood. continues to be significantly hypovolemic with falling CVP despite volume resuscitation. decision made to take back to OR. Was on phenylephrine, dopamine, epinephrine. 3000cc crystalloid , cell saver 250 + above blood products surgery #2 Emergent 1. Reexploration median sternotomy with evacuation of mediastinal hematoma 2. Repair of lung adhesion bleeding and tear status post previous left upper lobectomy 3. Repair of RPDA vein graft anastomosis oozing 4. Correction of coagulopathy 5. Synchronized cardioversion/ Afib / was given amiodarone bolus 07/08 pt off all pressors, up in chair , some very mild confusion/ will dc IV narcotics BP stable , HR mid 80-90. pt will require aggressive pulm toileting / long standing tobacco abuse discussed with friend , will need to look into rehab placement hold plavix today, ok for low dose ASA, on statin amiodarone will keep in CVICU today HGB 8.6/ recheck at 1400 07/09 on room air prevena dressing removed from chest / adhesive intolerance BB increased , norvasc re-added started on ferrous sulfate chest tube and vwires removed transfer to stepdown 07/10 renal indices improving , gentle diuresis today BB increased , eval for rehab at discharge no BM to date, additional GI motility meds given 07/11 + BM short burst of afib last night , now back into NSR increase amiodarone and continue BB 50mg bid gentle diuresis today leg edema improving, eval for discharge to rehab in am continue PT/ OOB on room air Objective: Vital Signs - 24 hr 07/10/18 15:00 07/10/18 16:00 07/10/18 17:00 Temperature 98.4 F Pulse Rate 97 H 100 H 98 H Respiratory Rate 18 Blood Pressure 140/66 Pulse Oximetry 99 07/10/18 18:00 07/10/18 19:00 07/10/18 20:00 Temperature 98.2 F Pulse Rate 108 H 99 H 98 H Respiratory Rate 22 Blood Pressure 115/58 L Pulse Oximetry 97 07/10/18 20:10 07/10/18 21:00 07/10/18 22:00 Temperature Pulse Rate 92 H 84 Respiratory Rate Blood Pressure Pulse Oximetry 95 07/10/18 23:00 07/11/18 00:00 07/11/18 01:00 Temperature 97.8 F Pulse Rate 82 88 90 Respiratory Rate 22 Blood Pressure 110/58 L Pulse Oximetry 94 L 07/11/18 02:00 07/11/18 03:00 07/11/18 04:00 Temperature 97.7 F Pulse Rate 96 H 92 H 86 Respiratory Rate 22 Blood Pressure 115/59 L Pulse Oximetry 95 07/11/18 05:00 07/11/18 06:00 07/11/18 07:00 Temperature 98.3 F Pulse Rate 88 90 95 H Respiratory Rate 20 Blood Pressure 120/73 Pulse Oximetry 96 07/11/18 08:00 07/11/18 09:00 07/11/18 10:00 Temperature Pulse Rate 87 92 H 78 Respiratory Rate Blood Pressure Pulse Oximetry 96 07/11/18 10:07 07/11/18 11:00 07/11/18 11:35 Temperature 98.5 F Pulse Rate 69 76 Respiratory Rate 17 20 Blood Pressure 105/62 Pulse Oximetry 96 07/11/18 13:09 Temperature Pulse Rate 74 Respiratory Rate Blood Pressure Pulse Oximetry GENERAL: A&O x 3 SKIN: Warm and dry. sternal incision intact and well approximated, petechiae around sternal incision skin dermatitis 2/2 tape HEAD: Normocephalic. EYES: No scleral icterus. No injection or drainage. NECK: Supple, trachea midline. No JVD or lymphadenopathy. CARDIOVASCULAR: Regular rate and rhythm without murmurs, gallops, or rubs. short run afib last night , improved edema to lower ext RESPIRATORY: Breath sounds equal bilaterally. No accessory muscle use. GASTROINTESTINAL: Abdomen soft, non-tender, nondistended. MUSCULOSKELETAL: No cyanosis, or edema. BACK: Nontender without obvious deformity. No CVA tenderness. Labs: Laboratory Results - last 12 hr 07/11/18 07/11/18 07/11/18 04:50 09:05 11:15 Sodium 141 Potassium 3.8 Chloride 105 Carbon Dioxide 28.9 Anion Gap 7 BUN 23 H Creatinine 1.23 Estimated GFR 58 L POC Glucose 342 H 51 L Random Glucose 82 Calcium 8.7 Magnesium 2.2 07/11/18 07/11/18 07/11/18 11:24 11:45 13:16 Sodium Potassium Chloride Carbon Dioxide Anion Gap BUN Creatinine Estimated GFR POC Glucose 48 L* 67 L 40 L* Random Glucose Calcium Magnesium 07/11/18 13:21 Sodium Potassium Chloride Carbon Dioxide Anion Gap BUN Creatinine Estimated GFR POC Glucose 133 H Random Glucose Calcium Magnesium Result Diagrams: 07/10/18 04:35 07/11/18 04:50 Telemetry: Afib > NSR - Plan (2) CAD (coronary artery disease), [place] coronary artery (4) Tobacco abuse Plan: discussed smoking cessation (5) S/P CABG x 3 Plan: low dose ASA, PLavix on amiodarone, increase BB , statin OOB ambulate gentle diuresis eval for rehab at discharge short run afib/ now resolved increase po dose amiodarone, continue BB (6) Blood loss anemia Plan: s/p multiple blood products HGB 8.6/ > ferrous sulfate (7) Acute kidney injury Plan: monitor indices indices improving / stable (2) CAD (coronary artery disease), [place] coronary artery Qualifiers: [place] vs. transplanted heart: [place] heart
--- NOTE | 2018-07-11 14:57 | P.DS ---
Date of admission: 07/02/18 14:12 Primary care physician: UNKNOWN Attending physician on discharge: Lizy Read Anticipated date of discharge: 07/12/18 Brief History from admission: Patient is a very pleasant 73-year-old male with known history of CAD status post stents placed in 2007, history of lung cancer status post left lobectomy, hypertension, hyperlipidemia who presented to the ER complaining of left upper quadrant/left-sided chest pain that started early this morning around 1030. Persistence prompted consult to [facility] and on where on evaluation was noted to have ST elevation in anterior chest leads with T-wave inversion in lateral leads. Patient was promptly seen by cardiology Dr. Zepeda and had cardiac cath done. Shows three-vessel disease with an ejection fraction of 75%. Patient admitted with consultation to the vascular surgery service. Patient denies any fever and no sputum production denies any weight loss, denies any leg swelling denies any orthopnea. Now is chest pain free Patient Still smokes 2 packs per day. states takes meds- cardiac meds/statins/Plavix and states compliance DS: Diagnosis - Discharge Diagnosis (1) ST elevation (STEMI) myocardial infarction Status: Acute (2) CAD (coronary artery disease), [place] coronary artery Status: Acute (3) Unstable angina Status: Acute (4) Tobacco abuse Status: Acute (5) S/P CABG x 3 Status: Acute (6) Blood loss anemia Status: Acute (7) Acute kidney injury Status: Acute DS: Medications - Discharge Medications Prescriptions: hydrocodone-acetaminophen 1 tab PO Q6H PRN #30 tab PRN Reason: Pain Scale 1 To 5 DS: Summary Hospital Course: 07/03 Clinically and hemodynamically stable Denies chest pain or anginal equivalent symptoms Platelet function remains abnormal secondary to Plavix intake Surgery likely Saturday. Will repeat Plavix verify 07/04 Clinical stable. Denies any chest pain. Does complain of moderate to severe left flank pain. Denies nausea or vomiting Exam: Abdomen is tender to deep palpation in the left upper quadrant. No rebound or guarding. Normoactive bowel sounds. Nondistended. Planned cardiac surgery for Saturday if platelet function assay is within normal limits Needs further evaluation of abdominal pain to exclude a more urgent etiology. We will continue to follow with you. 07/[address] results noted. No acute pathology Plavix verify assay in the morning with possible surgery to follow 07/07 surgery: Urgent Off-pump Coronary Artery Bypass Grafting x 3 with Left Internal Mammary Artery (JOSEPH) to Left Anterior Descending (LAD), reverse saphenous vein graft to diagonal 1 branch of the LAD, reverse saphenous vein graft to the Posterior Descending branch of the Right Coronary artery, Left leg Endoscopic Vein [place], Per Dr Guan's note : immediately post-op with significant mediastinal chest tube bleeding. 1L EBL from chest tube in 4 hours, no clots evident in chest tube. 4 units prbc, 4 ffp, 1 cryo, 1 PLT. PT remained hypotensive. placed VIVIANA emergently: very hypovolemic LV. good biventricular function. no evidence of significant tamponade physiology. large left pleural effusion which has echogenic appearance of blood. continues to be significantly hypovolemic with falling CVP despite volume resuscitation. decision made to take back to OR. Was on phenylephrine, dopamine, epinephrine. 3000cc crystalloid , cell saver 250 + above blood products surgery #2 Emergent 1. Reexploration median sternotomy with evacuation of mediastinal hematoma 2. Repair of lung adhesion bleeding and tear status post previous left upper lobectomy 3. Repair of RPDA vein graft anastomosis oozing 4. Correction of coagulopathy 5. Synchronized cardioversion/ Afib / was given amiodarone bolus 07/08 pt off all pressors, up in chair , some very mild confusion/ will dc IV narcotics BP stable , HR mid 80-90. pt will require aggressive pulm toileting / long standing tobacco abuse discussed with friend , will need to look into rehab placement hold plavix today, ok for low dose ASA, on statin amiodarone will keep in CVICU today HGB 8.6/ recheck at 1400 07/09 on room air prevena dressing removed from chest / adhesive intolerance BB increased , norvasc re-added started on ferrous sulfate chest tube and vwires removed transfer to stepdown 07/10 renal indices improving , gentle diuresis today BB increased , eval for rehab at discharge no BM to date, additional GI motility meds given 07/11 + BM short burst of afib last night , now back into NSR increase amiodarone and continue BB 50mg bid gentle diuresis today leg edema improving, eval for discharge to rehab in am continue PT/ OOB on room air - Time Spent with Patient Total time spent providing and/or coordinating discharge services: Greater than 30 minutes - Quality: VTE Deep Vein Thrombosis/Pulmonary Embolism Present on Admission: No Exam Vital signs: Vital Signs 07/10/18 15:00 07/10/18 16:00 07/10/18 17:00 Temperature 98.4 F Pulse Rate 97 H 100 H 98 H Respiratory Rate 18 Blood Pressure 140/66 Pulse Oximetry 99 07/10/18 18:00 07/10/18 19:00 07/10/18 20:00 Temperature 98.2 F Pulse Rate 108 H 99 H 98 H Respiratory Rate 22 Blood Pressure 115/58 L Pulse Oximetry 97 07/10/18 20:10 07/10/18 21:00 07/10/18 22:00 Temperature Pulse Rate 92 H 84 Respiratory Rate Blood Pressure Pulse Oximetry 95 07/10/18 23:00 07/11/18 00:00 07/11/18 01:00 Temperature 97.8 F Pulse Rate 82 88 90 Respiratory Rate 22 Blood Pressure 110/58 L Pulse Oximetry 94 L 07/11/18 02:00 07/11/18 03:00 07/11/18 04:00 Temperature 97.7 F Pulse Rate 96 H 92 H 86 Respiratory Rate 22 Blood Pressure 115/59 L Pulse Oximetry 95 07/11/18 05:00 07/11/18 06:00 07/11/18 07:00 Temperature 98.3 F Pulse Rate 88 90 95 H Respiratory Rate 20 Blood Pressure 120/73 Pulse Oximetry 96 07/11/18 08:00 07/11/18 09:00 07/11/18 10:00 Temperature Pulse Rate 87 92 H 78 Respiratory Rate Blood Pressure Pulse Oximetry 96 07/11/18 10:07 07/11/18 11:00 07/11/18 11:35 Temperature 98.5 F Pulse Rate 69 76 Respiratory Rate 17 20 Blood Pressure 105/62 Pulse Oximetry 96 07/11/18 13:09 Temperature Pulse Rate 74 Respiratory Rate Blood Pressure Pulse Oximetry Intake & Output 07/10/18 07/11/18 07/11/18 18:59 06:59 18:59 Intake Total 1200 / 1200 240 / 240 Output Total 2675 / 2675 700 / 700 Balance -1475 / -1475 -460 / -460 Weight 78.5 kg Intake: Oral 1200 / 1200 240 / 240 Output: Urine 2675 / 2675 700 / 700 Other: Date of Last Bowel Movement 07/07/18 07/07/18 07/07/18 # Bowel Movements 0 - Constitutional no acute distress - Routine HEENT Exam Head: Present: normocephalic, atraumatic Eye: Present: EOMI, PERRL - Routine Neck Exam Present: supple, full ROM - Routine Chest/Breast/Axilla Exam Chest wall: Present: tenderness - Routine Respiratory Exam Present: CTA bilaterally - Routine Cardiovascular Exam Present: RRR, S1, S2 - Routine Abdominal Exam Present: soft, normoactive bowel sounds - Routine Extremities Exam Present: edema, pulses intact, normal capillary refill - Routine Skin Exam Present: petechiae, wounds Comments: sternal incision intact and well approximated some petechiae and ecchymosis around site - Routine Neurological Exam Present: alert, oriented X3, CN II-XII intact Results Procedures completed during hospitalization: cardiac cath 07/02- 07/07 SURGICAL PROCEDURE 1. Urgent Off-pump Coronary Artery Bypass Grafting x 3 with Left Internal Mammary Artery (JOSEPH) to Left Anterior Descending (LAD), reverse saphenous vein graft to diagonal 1 branch of the LAD, reverse saphenous vein graft to the Posterior Descending branch of the Right Coronary artery 2. Left leg Endoscopic Vein [place] 3. Intraoperative Vein Mapping. PREPROCEDURE DIAGNOSES 1. Severe Multi Vessel Coronary Artery Disease. 2. Acute myocardial infarction status post CABG 3. Hemomediastinum POSTPROCEDURE DIAGNOSES Same SURGICAL PROCEDURE 1. Reexploration median sternotomy with evacuation of mediastinal hematoma 2. Repair of lung adhesion bleeding and tear status post previous left upper lobectomy 3. Repair of RPDA vein graft anastomosis oozing 4. Correction of coagulopathy 5. Synchronized cardioversion Date of procedure: 07/07/18 Pre-op diagnosis: hemorrhagic shock Procedure: Procedure: Transesophageal Echocardiography Diagnosis: Hemorrhagic shock Indications: Post coronary artery bypass grafting undifferentiated shock with need to rule out acute tamponade physiology in the setting of a patient with severe COPD and inability to get transthoracic views. Consent: Emergent Anesthesia: Versed 5 mg IV Description of the Procedure: The patient was sedated and mechanically ventilated. The echo probe was inserted easily and without resistance. At the conclusion of the procedure, the echo probe was removed. Findings: 1) Hyperdynamic LV function, EF 60% 2) Left ventricular hypertrophy 3) no regional wall motion abnormalities 4) normal Right ventricular size and function 5) mild aortic regurgitation 6) Underfilled left ventricle with touching papillary muscles in end-systole 7) trace pericardial effusion without echocardiographic evidence of tamponade physiology 8) large left pleural effusion with echodense material suggestive of hematoma Date of procedure: 07/07/18 Pre-op diagnosis: symptomatic bradycardia Post-op diagnosis: same Procedure: Transvenous Pacer Procedure Note Diagnosis: Symptomatic bradycardia Indications: Symptomatic bradycardia with need to increase cardiac output Consent: Emergent Anesthesia: Versed 5 mg IV Description of the Procedure: The patient was placed in the supine, mild- Trendelenburg position. The area was prepped and draped sterilely. A central introducer sheath was placed (see separate procedure note for details). Through this sheath, the 5 Fr transvenous pacer was inserted sterilely to a depth of 20 cm. The balloon was inflated and advanced in diastole with the pacer connected under real-time electrocardiographic monitoring, until capture was obtained. The balloon was deflated. The pacer was secured in position. There were no immediate complications noted. There was minimal EBL. The patient tolerated the procedure well. Depth at Capture: 32 cm Labs on day of discharge: Labs from last 24 hours 07/11/18 07/11/18 07/11/18 13:21 13:16 11:45 Sodium Potassium Chloride Carbon Dioxide Anion Gap BUN Creatinine Estimated GFR POC Glucose 133 H 40 L* 67 L Random Glucose Calcium Magnesium 07/11/18 07/11/18 07/11/18 11:24 11:15 09:05 Sodium Potassium Chloride Carbon Dioxide Anion Gap BUN Creatinine Estimated GFR POC Glucose 48 L* 51 L 342 H Random Glucose Calcium Magnesium 07/11/18 07/10/18 07/10/18 04:50 20:33 17:36 Sodium 141 Potassium 3.8 Chloride 105 Carbon Dioxide 28.9 Anion Gap 7 BUN 23 H Creatinine 1.23 Estimated GFR 58 L POC Glucose 116 H 90 Random Glucose 82 Calcium 8.7 Magnesium 2.2 - Impressions ITS Impressions Carotid Doppler Study 07/02/18 13:52 CONCLUSION: 1. Right Internal Carotid Artery: Slight elevation of the left ICA/CCA ratio and peak systolic velocity of the left ICA suggesting 50-69% stenosis. CTA of the carotids would be helpful for more accurate evaluation foraminal stenosis is noted. 2. Left Internal Carotid Artery: Elevation of the ICA/CCA ratio on the left as well as the peak systolic velocity of the left internal carotid artery suggesting greater than 70% stenosis. CTA of the carotids would be helpful for more accurate evaluation of luminal stenosis if clinically indicated. The waveforms are within normal limits. Lower Extremity Ultrasound 07/02/18 13:52 CONCLUSION: 1. Venous mapping as described above. Venous Doppler Study 07/02/18 13:52 CONCLUSION: 1. The study is negative for bilateral lower extremity deep venous thrombosis. Abdomen/Pelvis CT 07/04/18 00:00 CONCLUSION: 1. Moderate atherosclerotic vascular disease with minimal aneurysmal dilatation as above 2. I do not see an etiology for the left upper quadrant pain. Chest X-Ray 07/10/18 00:00 CONCLUSION: Thoracostomy tubes removed without complication. Discharge Plan - Discharge Disposition Patient Disposition: 03 Discharge to SNF - Discharge Condition Condition: Good - Discharge Details Anticipated Discharge Date: 07/12/18 Discharge Comment: ok to dishcarge to SNF in am , after pt evaluated by Dr Read - Physicians Team Primary Care Provider: UNKNOWN, Attending Provider: Estefanía Bauer Other Providers: Lizy Read MD ; Agustin Zepeda MD ; [employer], [employer] ; Dutch Guan MD
[2018-07-11] MEDS ORDERED: Amiodarone 200 MG Tablet PO ONE (16:00)
[2018-07-12 04:33] LABS: Hematocrit 27.2 % (39.0-51.0); Hemoglobin 9.3 gm/dL (13.0-17.0); Mean Corpuscular HGB Conc 34.3 % (32.0-36.0); Mean Corpuscular Hemoglobin 29.2 pg (27.0-34.0); Mean Corpuscular Volume 85.1 fL (80.0-100.0); Platelet Count 139 th/mm3 (150-450); Red Blood Count 3.19 mil/mm3 (4.50-5.90); Red Cell Distribution Width 14.8 % (11.6-17.2); White Blood Count 6.7 th/mm3 (4.0-11.0)
[2018-07-12 04:48] LABS: Calcium 8.3 mg/dL (8.5-10.1); Carbon Dioxide 28.2 meq/L (21.0-32.0); Magnesium 2.2 mg/dL (1.5-2.5); Phosphorus 1.9 mg/dL (2.5-4.9); Potassium 3.7 meq/L (3.5-5.1)
[2018-07-12] MEDS: Insulin NovoLOG Aspart Correctional Sugar Inj SQ SCH ×4 (08:16→21:18)
[2018-07-12] MEDS: Amiodarone 200 MG Tablet PO SCH ×2 (09:12→21:09)
[2018-07-12] MEDS: Docusate Sodium 100 MG Capsule PO SCH ×2 (09:12→21:10)
[2018-07-12] MEDS: Multivitamin/Minerals Therapeutic Tablet PO SCH (09:12)
[2018-07-12] MEDS: Metoprolol Tartrate 25 MG Tablet PO SCH ×2 (09:12→21:09)
[2018-07-12] MEDS: Polyethylene Glycol 3350 17 GM Packet PO SCH (09:13)
--- NOTE | 2018-07-12 10:21 | P.PNCA ---
Subjective Interval history: alert in nad Physical Exam Vital signs: Vital Signs 07/11/18 11:00 07/11/18 11:35 07/11/18 13:09 Temperature 98.5 F Pulse Rate 69 76 74 Respiratory Rate 20 Blood Pressure 105/62 Pulse Oximetry 96 07/11/18 15:00 07/11/18 15:22 07/11/18 16:08 Temperature 98.3 F Pulse Rate 78 80 79 Respiratory Rate 20 Blood Pressure 128/70 Pulse Oximetry 96 07/11/18 17:00 07/11/18 17:06 07/11/18 17:19 Temperature Pulse Rate 76 Respiratory Rate 17 Blood Pressure Pulse Oximetry 96 07/11/18 19:00 07/11/18 20:00 07/11/18 20:04 Temperature 97.8 F Pulse Rate 86 88 88 Respiratory Rate 22 16 Blood Pressure 139/63 Pulse Oximetry 97 97 07/11/18 21:00 07/11/18 22:00 07/11/18 23:00 Temperature 98.2 F Pulse Rate 86 86 82 Respiratory Rate 20 Blood Pressure 139/64 Pulse Oximetry 95 07/12/18 00:00 07/12/18 01:00 07/12/18 02:00 Temperature Pulse Rate 82 78 72 Respiratory Rate Blood Pressure Pulse Oximetry 07/12/18 03:00 07/12/18 04:00 07/12/18 05:00 Temperature 98.7 F Pulse Rate 82 82 70 Respiratory Rate 18 Blood Pressure 144/70 H Pulse Oximetry 95 07/12/18 06:00 07/12/18 07:00 07/12/18 07:45 Temperature 97.6 F Pulse Rate 75 88 86 Respiratory Rate 18 Blood Pressure 129/62 Pulse Oximetry 98 07/12/18 08:00 07/12/18 09:00 07/12/18 09:07 Temperature Pulse Rate 96 H 88 Respiratory Rate Blood Pressure Pulse Oximetry 98 07/12/18 10:00 Temperature Pulse Rate 72 Respiratory Rate Blood Pressure Pulse Oximetry Intake & Output 07/11/18 07/12/18 07/12/18 18:59 06:59 18:59 Intake Total 1100 / 1100 420 / 420 Output Total 850 / 850 600 / 600 Balance 250 / 250 -180 / -180 Weight 77.5 kg Intake: Oral 1100 / 1100 420 / 420 Output: Urine 850 / 850 600 / 600 Other: # Voids 2 Date of Last Bowel Movement 07/11/18 07/11/18 07/11/18 # Bowel Movements 1 1 - Urinary Catheter Management Indwelling Temp Sensing Catheter Cath placed during this visit: yes, but has since been removed by the nurse Reason for continuing: Not indwelling catheter Insertion date: 07/07/18 Insertion time: 07:30 Removal date: 07/08/18 Removal time: 06:30 Assessment and Plan - Assessment (1) Unstable angina Code(s): I20.0 - Unstable angina Status: Acute (2) Tobacco abuse Code(s): Z72.0 - Tobacco use Status: Acute (3) CAD (coronary artery disease), [place] coronary artery Code(s): I25.10 - Atherosclerotic heart disease of [place] coronary artery without angina pectoris Status: Acute - Plan 1.) Severe 3 vessel cad - pod#5 cabg, supportive post cabg care, chest tube out , patient strongly advised to stop smoking, continue aspirin, lipitor, lopressor ; veto held due to arf (3) CAD (coronary artery disease), [place] coronary artery Qualifiers: [place] vs. transplanted heart: [place] heart
[2018-07-12] MEDS: Ferrous Sulfate 325 MG Tablet PO SCH ×2 (12:48→16:40)
[2018-07-13 04:27] VITALS: RESP 18
[2018-07-13] MEDS: Insulin NovoLOG Aspart Correctional Sugar Inj SQ SCH ×2 (08:09→12:08)
[2018-07-13] MEDS: Docusate Sodium 100 MG Capsule PO SCH (08:51)
[2018-07-13] MEDS: Amiodarone 200 MG Tablet PO SCH (08:51)
[2018-07-13] MEDS: Metoprolol Tartrate 25 MG Tablet PO SCH (08:51)
[2018-07-13] MEDS: Multivitamin/Minerals Therapeutic Tablet PO SCH (08:51)
[2018-07-13] MEDS: Polyethylene Glycol 3350 17 GM Packet PO SCH (08:52)
--- NOTE | 2018-07-13 10:26 | P.PNCA ---
Subjective Interval history: alert in nad Physical Exam Vital signs: Vital Signs 07/12/18 11:00 07/12/18 11:36 07/12/18 12:00 Temperature 97.6 F Pulse Rate 73 74 Respiratory Rate 18 Blood Pressure 123/66 Pulse Oximetry 98 97 07/12/18 13:00 07/12/18 14:00 07/12/18 14:50 Temperature 97.6 F Pulse Rate 80 80 80 Respiratory Rate 18 Blood Pressure 143/68 H Pulse Oximetry 99 07/12/18 15:00 07/12/18 16:00 07/12/18 17:00 Temperature Pulse Rate 81 80 86 Respiratory Rate Blood Pressure Pulse Oximetry 07/12/18 18:00 07/12/18 19:00 07/12/18 20:00 Temperature 98.5 F Pulse Rate 88 83 95 H Respiratory Rate 18 Blood Pressure 163/113 H Pulse Oximetry 93 L 93 L 07/12/18 21:00 07/12/18 21:22 07/12/18 22:00 Temperature Pulse Rate 83 81 Respiratory Rate Blood Pressure Pulse Oximetry 94 L 07/12/18 23:00 07/13/18 00:00 07/13/18 01:00 Temperature 97.9 F Pulse Rate 82 79 74 Respiratory Rate 18 Blood Pressure 143/73 H Pulse Oximetry 95 07/13/18 02:00 07/13/18 03:00 07/13/18 04:00 Temperature 97.6 F Pulse Rate 69 73 73 Respiratory Rate 20 Blood Pressure 150/73 H Pulse Oximetry 93 L 07/13/18 04:26 07/13/18 05:00 07/13/18 06:00 Temperature Pulse Rate 73 74 Respiratory Rate 18 Blood Pressure Pulse Oximetry 07/13/18 07:00 07/13/18 07:24 07/13/18 07:56 Temperature 97.5 F L Pulse Rate 74 74 Respiratory Rate 18 Blood Pressure 150/80 H Pulse Oximetry 98 98 07/13/18 08:00 07/13/18 09:00 07/13/18 10:00 Temperature Pulse Rate 73 86 76 Respiratory Rate Blood Pressure Pulse Oximetry Intake & Output 07/12/18 07/13/18 07/13/18 18:59 06:59 18:59 Intake Total 1200 / 1200 240 / 240 Output Total 300 / 300 Balance 900 / 900 240 / 240 Weight 77 kg Intake: Oral 1200 / 1200 240 / 240 Output: Urine 300 / 300 Other: # Voids 4 8 Date of Last Bowel Movement 07/12/18 07/12/18 # Bowel Movements 3 - Urinary Catheter Management Indwelling Temp Sensing Catheter Cath placed during this visit: yes, but has since been removed by the nurse Reason for continuing: Not indwelling catheter Insertion date: 07/07/18 Insertion time: 07:30 Removal date: 07/08/18 Removal time: 06:30 Assessment and Plan - Assessment (1) Unstable angina Code(s): I20.0 - Unstable angina Status: Acute (2) Tobacco abuse Code(s): Z72.0 - Tobacco use Status: Acute (3) CAD (coronary artery disease), [place] coronary artery Code(s): I25.10 - Atherosclerotic heart disease of [place] coronary artery without angina pectoris Status: Acute - Plan 1.) Severe 3 vessel cad - pod#6 cabg, supportive post cabg care, chest tube out , patient strongly advised to stop smoking, continue aspirin, lipitor, lopressor ; veto held due to arf (3) CAD (coronary artery disease), [place] coronary artery Qualifiers: [place] vs. transplanted heart: [place] heart
[2018-07-13 11:47] VITALS: TEMP 97.6
[2018-07-13] MEDS: Ferrous Sulfate 325 MG Tablet PO SCH (12:08)
[2018-07-13 15:13] VITALS: BP 141/84; PULSE 76; O2SAT 100
--- NOTE | 2018-08-25 11:51 | CATHPROC ---
[facility] HIS Report Study Information Study Number Admission Scheduled Start Study Start [id number] Jul 02 2018 11:13AM 07/02/2018 Jul 02 2018 11:54AM [place] Service Electrophysiology Study Admit Source Facility Department Transfer in from another acute care facility [facility] - Certified Technician Specialist Physician and Clinical Staff Initial Agustin Jenkins Market Research Associate Sharif Blanc,MILY Market Research Associate Gianni Roa,MILY Recorder Bobbi Baez,RT(R) (BS) Scrub Johnny Resendez,RT(R) Procedures Performed Procedure Location (Site) Vessel Name Coronary Angiograms LCA Left Coronary Coronary Angiograms RCA Right Coronary L Heart Cath LV Gram-hand inj. LV LV Ventricle Equipment Time Sprinkler Installer Description Size Mfg Part Number Used/Scraped TRANSDUCER, TRUWAVE [id number] 12:08 Bruxie MARTINEZ * Used W/STOCKCOCK *[id number] *[id number] [id number] *[id number] *[id number] 12:08 [employer] BLANKET,WARM AIR CCL * Used *[id number] 12:08 [employer] PACK, CCL CUSTOM * Used *[id number] 12:08 ELIKE PACER PEN, SKIN DUAL W/ RULER * Used *[id number] 12:08 [employer] MEDICAL SHEATH, FR6.5 PRELUDE 11CM FR 6.5 038ACT Used *[id number] 12:08 [employer] MEDICAL WIRE, 3MMJ .035 180CM 180CM Used *[id number] 12:08 NAMIC MANIFOLD, 4 PORT * Used *[id number] 12:08 [employer] OMNIPAQUE, 350 MG, 150ML 150ML [id number] Used [id number] 12:30 [email or web address] MEDICAL SHEATH, FR4 TERUMO (10CM) FR 4 Used *[id number] History: Current Medications Medication Dosage/Unit Route Frequency Last Date/Time Taken HEPARIN ASA History: Allergies Allergy Reaction naproxen LOW BP, HIVES History: Risk Factors Family History of Hypertension Dyslipidemia Previous IA Previous Heart Failure Premature CAD Yes No No Yes No Prior Valve Prior PCI Prior PCIDate Prior CABG Surgery No Yes 06/09/2008 No Cerebrovascular Peripheral Artery Chronic Lung On Dialysis Diabetes Disease Disease Disease No No No No No History: Symptoms/Diagnosis Selection Items Chest pain History: Stress Tests Stress or Imaging Studies Performed No History: Other Current Smoker Method Packs a Day Years Used Pack Years Yes Cigarettes 2 64 128 Labs Hgb (g/dl) Hct (%) RBC (MIL/MM3) WBC (l/cumm) Platelets (thousands) 11.60-17.00 35.00-51.00 4.00-5.90 4.00-11.00 150.00-450.00 15.1 44 5.9 8.6 201 Na (meq/l) K (meq/l) Cl (meq/l) CO2 (mmol/L) 136.00-145.00 3.50-5.10 98.00-107.00 21.00-32.00 140 3.7 105 25 PT (sec) PTT (sec) INR (PTT:PT) 9.80-11.60 24.30-30.10 0.90-1.10 10.8 26 1.1 Troponin I (ng/ml) CPK-MB (ng/ML) 0.02-0.05 0.50-3.60 0.02 Not Drawn Medication Medication Total Dose (Bolus/Oral) Medication Total Dosage/Unit 1% XYLOCAINE 20 mL FENTANYL 50 mcg OXYGEN 2 l/min VERSED 1 mg Medications (Bolus/Oral) Medication Time Given Dosage/Unit Administered By Reason OXYGEN 07/02/2018 12:11:31 PM 2 l/min Patient arrived on 2 l/min OXYGEN via Nasal. 1% XYLOCAINE 07/02/2018 12:28:28 PM 20 mL Agustin Zepeda 20 mL 1% XYLOCAINE given in lab by Agustin Zepeda in Right Groin via Subcutaneous. Ordered by Agustin Navarro. FENTANYL 07/02/2018 12:29:01 PM 25 mcg RonakoGianni 25 mcg FENTANYL given in lab by Gianni Roa RN via Peripheral IV. Ordered by Agustin Zepeda. VERSED 07/02/2018 12:29:53 PM 1 mg FerlittoGianni 1 mg VERSED given in lab by Gianni Roa RN via Peripheral IV. Ordered by Agustin Zepeda. FENTANYL 07/02/2018 12:46:10 PM 25 mcg Ferlitto Gianni 25 mcg FENTANYL given in lab by Gianni Roa RN via Peripheral IV. Ordered by Agustin Zepeda. Medication (Drip) Medication Time Given Dosage/Unit Concentration/Unit Diluent (ml) Solution IV Solutions 07/02/2018 12:11:04 PM 0 mL (IV) 1000 NaCl .9 Patient arrived on IV Solutions given by Agustin Zepeda in Right Antecubital via Peripheral IV. Pum p/Drip Flow = 20 ml/hr using NaCl .9. Ordered by Agustin Zepeda. Initial Case Assessment Cardiovascular HR Rhythm NIBP 56 STEMI 134/67 Edema Present Skin color Skin None Normal Warm Dry Circulatory - Right Pulses Dorsalis Pedis Femoral d 1 Scale (0,1,2,3,4,d) Circulatory - Left Pulses Dorsalis Pedis Femoral d 1 Scale (0,1,2,3,4,d) Neurological State Oriented to time-place- Alert Moves all extremities person Respiration - General Respiration Rate SpO2 (%) (B/min) 17 100 Chronological Log Time Study Chronological Log 11:28:19 [place] [facility] notified that Certified Technician Specialist is ready. 11:45:19 Pt left [place] [facility] 12:10:28 Patient arrived via Bed. 12:10:29 Patient Name, D.O.B, / Armband Verified By R.N. 12:10:31 Consent signed by the physician and the patient and verified by the Certified Technician Specialist staff. 12:10:37 Patient has been NPO for Less than 6Hrs. 12:10:39 NO Skin Breakdown- NONE PER PATIENT 12:10:41 Patient Warmer Placed on the Table. 12:10:43 Disposable Defibrillator Pads On Patient. 12:10:59 Tasneem Prominences Protected 12:11:02 A # 20 IV was noted in the Antecubital (right). Grade = 0 12:11:03 A # 20 IV was noted in the Antecubital (right). Grade = 0 Patient arrived on IV Solutions given by Agustin Zepeda in Right Antecubital via Peripheral IV. Pump/Drip Flow = 20 12:11:04 ml/hr using NaCl .9. Ordered by Agustin Zepeda. 12:11:06 History and physical on the chart or being dictated. 12:11:31 Patient arrived on 2 l/min OXYGEN via Nasal. Vitals capture started with the following parameters, Patient=Adult, Interval=3 min, Initial Pr lecyzb=515 mmHg, 12:17:00 Deflation Rate=5 mmHg, Cuff placed on Left Arm 12:17:55 HR=55 bpm, DRIT=725/67 mmhg, SsI9=800.0 %, Resp=19 B/min 12:18:19 History and physical on the chart or being dictated. Assessment: Initial Case, HR=56 BPM, Rhythm=STEMI, LARW=619/67 mmhg, Edema=None, Color=Normal, Skin = Warm, Dry Right Pulses: Mathew Ped=d, Femoral=1 12:18:20 Left Pulses: Mathew Ped=d, Femoral=1 Neurological: State=Alert, Ox3, MOORE Respiration: Resp=17 B/min, WiP7=954 % 12:20:07 Bilateral groins prepped with 2% chlorhexidine, and draped after a 3 minute waiting time. 12:20:37 HR=62 bpm, RPCE=595/60 mmhg, HpG8=604.0 %, Resp=19 B/min 12:23:36 Pressure channel 1 zeroed. 12:23:37 HR=54 bpm, XTJT=001/68 mmhg, PsL1=289.0 %, Resp=17 B/min, Pain=0, Hayley=10, Snyder=2 12:24:16 Reference ECG taken 12:24:25 MD arrived. 12:26:36 HR=53 bpm, KZPW=003/73 mmhg, AsD0=215.0 %, Resp=22 B/min, Pain=0, Hayley=10, Snyder=2 Time Out. Correct patient, correct procedure, correct physician, labs, allergies, and equipment verified with blood and plasma laboratory assistant 12:27:57 team present. Fire risk assesment completed (see hard stop sheet for coding). Time Out Conc urred by MD and individual staff in procedure. 12:28:02 Case Start 20 mL 1% XYLOCAINE given in lab by Agustin Zepeda in Right Groin via Subcutaneous. Ordered by Duane 12:: Agustin. 12:29:01 25 mcg FENTANYL given in lab by Gianni Roa RN via Peripheral IV. Ordered by Agustin Zepeda. 12:29:38 HR=57 bpm, HHTM=077/73 mmhg, LlR2=269.0 %, Resp=12 B/min, Pain=0, Hayley=10, Snyder=2 12:29:52 Access site was Right Femoral Artery. 12:29:53 1 mg VERSED given in lab by Gianni Roa RN via Peripheral IV. Ordered by Roe Zepeda. 12:30:09 A SHEATH, FR4 TERUMO (10CM) FR 4 was advanced into the Fem Art (right) using the Percutaneo us technique. 12:30:55 Activated Clotting Time Drawn A JR 4.0 INFINITI CATHETER FR 4 was advanced over a wire. OMNIPAQUE, 350 MG, 150ML 150ML was us ed for 12:30:59 injections. Recorded Pressure: LV, HR=57, Condition=Condition 1 12:32:12 (Left Ventricle) LV 121/7/14 12:32:24 The LV was manually injected with 8 cc's and visualized. OMNIPAQUE, 350 MG, 150ML 150ML use d. Recorded Pressure: LV, Ao, HR=53, Condition=Condition 1 12:32:41 (Left Ventricle) LV 115/5/12, (Aorta) Ao 115/57/78 12:32:42 HR=52 bpm, TEFH=671/58 mmhg, JgG2=396.0 %, Resp=10 B/min, Pain=0, Hayley=10, Snyder=2 12:32:51 The RCA was injected and visualized at various angles. OMNIPAQUE, 350 MG, 150ML 150ML used . After removing the current catheter a JL 4.0 INFINITI CATHETER FR 5 was advanced over a WIRE, 3 MMJ .035 180CM 12:33:48 180CM. 12:35:16 ACT (Normal Range 90-180) = 179 12:35:38 HR=50 bpm, CSDE=570/61 mmhg, CvZ5=414.0 %, Resp=12 B/min, Pain=0, Hayley=10, Snyder=2 12:35:57 The LCA was injected and visualized at various angles. OMNIPAQUE, 350 MG, 150ML 150ML used . 12:37:11 Catheter was removed 12:37:21 Case End (Physician broke scrub) 12:38:41 HR=55 bpm, WAJL=609/60 mmhg, OeE1=339.0 %, Resp=12 B/min, Pain=0, Hayley=10, Snyder=2 12:39:49 Catheter(s) removed without difficulty 12:40:10 No case complications noted. 12:40:14 Bedside Report will be given. 12:40:17 A Left Heart Cath was performed. 12:42:20 SNKW=642/65 mmhg, BzC7=271.0 %, Pain=0, Hayley=10, Snyder=2 Vitals capture started with the following parameters, Patient=Adult, Interval=3 min, Initial P qqzvphu=499 mmHg, 12:45:33 Deflation Rate=5 mmHg, Cuff placed on Left Arm 12:46:10 25 mcg FENTANYL given in lab by Gianni Roa, MILY via Peripheral IV. Ordered by Agustin Zepeda. 12:46:13 IRQA=624/62 mmhg, AzB8=897.0 %, Pain=0, Hayley=10, Snyder=2 12:48:20 Sheath removed; pressure applied to access site. 12:49:09 MUNV=040/68 mmhg, QiQ5=599.0 %, Pain=0, Hayley=10, Snyder=2 12:52:14 BMDR=908/61 mmhg, CcE9=116.0 %, Pain=0, Hayley=10, Snyder=2 12:55:12 JEQT=529/62 mmhg, IxH3=848.0 %, Pain=0, Hayley=10, Snyder=2 12:58:08 QOUI=240/69 mmhg, DrR4=110.0 %, Pain=0, Hayley=10, Snyder=2 12:58:49 Sterile dressing applied to site 12:59:36 Patient moved to [facility] End Study - Contrast Media Used In Study Contrast Total Opened (mL) Total Used (mL) Total Wasted (mL) Omnipaque 30 30 0 End Study - Radiation Exposure Fluoro Time (minutes) 1.6 End Study - Sheaths Sheaths Pulled By Sheath Hold Time (min) Johnny Resendez End Study - Patient Disposition Complications Transferred To Interventional Outcome No Telemetry Bed No attempt made
== END 2018-07-13 16:50 ==
LOC: PHED 11:13 → HCIS 13:33 → PHEDA 14:12 → PHED 14:13 → HCIS 14:27 → HCVI 07-06 19:46 → HCPC 07-09 10:15
PROVIDERS: ADMIT Thoracic Surgery (Cardiothoracic Vascular Surgery); ATTEND Thoracic Surgery (Cardiothoracic Vascular Surgery)